=== PATIENT | male | born 1955 | race Caucasian/White ===

== ENCOUNTER → 2016-12-18 | Outpatient (CLI) | payer BC ==
--- NOTE | 2016-12-18 21:47 | CT ---
EXAMINATION TYPE: CT foot LT wo con DATE OF EXAM: 12/18/2016 COMPARISON: NONE HISTORY: Patient fell off of ladder. Patient complains of left foot pain post fall. CT DLP: 149.3 mGycm Automated exposure control for dose reduction was used. Helical acquisition through the foot, coronal and sagittal reconstructions FINDINGS: Comminuted fracture of the calcaneus is noted involving the posterior facet laterally as well as the sustentaculum jeffy at its articulation with the talus. Fracture fragments are displaced. There is ext ensive soft tissue edema. IMPRESSION: COMMINUTED DISPLACED CALCANEAL FRACTURE.
== END | disposition home or self-care (01) ==
LOC: RADCTMAIN 17:56
PROVIDERS: ATTEND Orthopaedic Surgery
DX: S92.002A Unspecified fracture of left calcaneus, initial encounter for closed fracture (principal)

== ENCOUNTER → 2018-11-13 | Outpatient (CLI) | payer BC ==
--- NOTE | 2018-11-14 12:24 | USB ---
Reason for exam: clinical finding. Physical Findings: Nurse Summary: 2cm firm nodule (nurse dw). US Breast RT Right complete breast ultrasound includes all four quadrants, the retroareolar region and axilla. Finding demonstrates a 1.6 x 0.9 x 0.9cm irregular, hypoechoic, vascular lesion at the posterior nipple. These results were verbally communicated with the patient and result sheet given to the patient on 11/13/18. ASSESSMENT: Incomplete: need additional imaging evaluation, BI-RAD 0 RECOMMENDATION: Follow-up diagnostic mammogram of both breasts.
--- NOTE | 2018-11-14 12:27 | MM ---
Reason for exam: additional evaluation requested from prior study. Baseline mammogram. [facility] Diagnostic Mammo w CAD [facility] Bilateral CC and MLO view(s) were taken. No suspicious group of calcifications. Asymmetric retroareolar tissue, greater in the right breast appears as gynecomastia, however, discordant from prior ultrasound. These results were verbally communicated with the patient and result sheet given to the patient on 11/13/18. ASSESSMENT: Suspicious, BI-RAD 4 RECOMMENDATION: Ultrasound core biopsy of the right breast. (considering vascular flow and mass like appearance on ultrasound) Called Dr. Contreras with mammographic findings and has scheduled an appointment for the patient for 12/22/18 at 3:[address] Latif. Biopsy scheduled for 12/22/18 at 12:20. PRELIMINARY REPORT CALLED AND FAXED TO DR. LATIF ON 11/14/18.
== END | disposition home or self-care (01) ==
LOC: RADUSWWP 15:16
PROVIDERS: ATTEND Family Medicine
DX: R92.8 Other abnormal and inconclusive findings on diagnostic imaging of breast (principal); N64.4 Mastodynia
CPT/HCPCS: 77066

== ENCOUNTER → 2018-12-19 | Outpatient (CLI) | payer BC ==
[2018-12-19 16:11] VITALS: BP 172/78; PULSE 66; RESP 20; TEMP 98.5; BMI 38.7
--- NOTE | 2018-12-19 16:11 | P.GSHP ---
History of Present Illness H&P Date: 12/19/18 Chief Complaint: mass in the right breast Previous a 63-year-old white male who for approximately the last 8 months noted an area of nodularity posterior to the nipple areolar complex in the right breast. He states this is intermittently painful. He underwent a mammogram on 11/13/2018 which revealed retroareolar tissue in the right suspicious for gynecomastia discordant from prior ultrasound. An ultrasound in the same day revealed a 1.6 x 0.9 cm irregular vascular lesion at this site. Ultrasound core biopsy was recommended. The patient patient does not note any masses in his testicles. He has not had any change in medication. The patient did have trauma to the right breast approximately 8 months ago. Family HIstory: 1. father: prostate Past surgical history: 1.esophogeal tear 2. mass right heel Medical history: 1.nasal polyps 2. HTN Social History: smoke: none alcohol: none drugs: none - Constitutional Constitutional: Denies chills, Denies fever - EENT Comment: wears glasses Eyes: denies blurred vision, denies pain Ears: bilateral: decreased hearing, deny: tinnitus Ears, nose, mouth and throat: Denies headache, Denies sore throat - Breasts Breasts: bilateral: as per HPI - Cardiovascular Cardiovascular: Reports high blood pressure - Respiratory Respiratory: Denies cough, Denies 7 - Gastrointestinal Gastrointestinal: Denies abdominal pain, Denies diarrhea, Denies nausea, Denies vomiting - Genitourinary (Female) Genitourinary: Denies dysuria, Denies hematuria - Genitourinary (Male) Genitourinary: Denies dysuria, Denies hematuria - Musculoskeletal Musculoskeletal: Denies myalgias - Integumentary Integumentary: Denies pruritus, Denies rash - Neurological Neurological: Denies numbness, Denies weakness - Psychiatric Psychiatric: Reports anxiety, Denies depression - Endocrine Comment: hypothyroid Endocrine: Denies fatigue, Denies weight change - Hematologic/Lymphatic Comment: none - Allergic/Immunologic Allergic/Immunologic: Reports seasonal allergies Medications and Allergies Home Medications Medication Instructions Recorded Confirmed Type Atenolol [Tenormin] 25 mg PO BID 12/08/18 12/08/18 History Budesonide [Pulmicort] 0.25 mg INHALATION BID 12/08/18 12/08/18 History Calcium/Magnesium/Zinc 1 each PO DAILY 12/08/18 12/08/18 History [Vnusgdc-Fzvtlqprx-Uzcr Tablet] Cholecalciferol (Vitamin D3) 2,000 unit PO DAILY 12/08/18 12/08/18 History [Vitamin D3] Fluticasone/Salmeterol [Advair 1 inhalation PO BID 12/08/18 12/08/18 History 250-50 Diskus] Gemfibrozil [Lopid] 600 mg PO AC-BID 12/08/18 12/08/18 History Levothyroxine Sodium 100 mcg PO DAILY 12/08/18 12/08/18 History Lovastatin [Altoprev] 80 mg PO DAILY 12/08/18 12/08/18 History Multivitamins, Thera [Multivitamin 1 tab PO DAILY 12/08/18 12/08/18 History (formulary)] Niacin [Niacin ER] 1,000 mg PO DAILY 12/08/18 12/08/18 History Coburn-3 Fatty Acids [Coburn-3] 1,000 mg PO DAILY 12/08/18 12/08/18 History Omeprazole [PriLOSEC] 20 mg PO DAILY 12/08/18 12/08/18 History Sertraline HCl [Zoloft] 150 mg PO DAILY 12/08/18 12/08/18 History Ubidecarenone [Co Q-10] 120 mg PO DAILY 12/08/18 12/08/18 History Allergies Allergy/AdvReac Type Severity Reaction Status Date / Time No Known Allergies Allergy Verified 12/08/18 12:45 Surgical - Exam BMI 38.7 - General well developed, well nourished, no distress - Eyes normal ocular movement - ENT no hearing loss, no congestion - Neck trachea midline - Respiratory normal respiratory effort, clear to auscultation - Cardiovascular Rhythm: regular Heart Sounds: normal: S1, S2 - Abdomen Abdomen: soft, non tender, no guarding, no rigid, no rebound - Integumentary normal turgor - Neurologic no disoriented, no combative - Musculoskeletal normal gait, normal posture - Psychiatric oriented to time, oriented to person, oriented to place, speech is normal, memory intact Breast examination: Right breast: Multiple positional exam reveals increased nodularity behind the nipple areolar complex extending approximately a centimeter superiorly Right axilla: No adenopathy of concern left breast: Multiple positional exam fibrocystic changes no dominant masses or nodules of concern Left axilla: No adenopathy of concern Results Mammogram and ultrasound results of the right breast reviewed Assessment and Plan Assessment: Impression: 1. Mass right breast 2. Abnormal mammogram 3. Abnormal ultrasound 4. Family history of cancer 5. Hypertension 6. Hypothyroidism 7. Reflux 8. History of trauma approximately 8 months ago to the right breast Plan: 1. Core biopsy area of concern in the right breast 2. Medical management of medical conditions 2. Follow-up one week after biopsy Cc:
== END ==
LOC: WWCWWP 15:14
PROVIDERS: ATTEND Surgery
DX: Z53.9 Procedure and treatment not carried out, unspecified reason (principal)

== ENCOUNTER → 2018-12-22 | Day surgery (SDC) | payer BC ==
[2018-12-22 11:44] VITALS: RESP 18; BMI 38.7
[2018-12-22 12:49] VITALS: BP 145/80; PULSE 63; TEMP 97.5
--- NOTE | 2018-12-22 13:07 | USB ---
ULTRASOUND GUIDED RIGHT BREAST CORE BIOPSY: CLINICAL HISTORY: Subareolar mass FINDINGS: The procedure was explained to the patient. The risks, complications, benefits and alternatives were discussed and any questions were answered. Informed consent was obtained. Patient was placed supine on the ultrasound table and prepped and draped in the usual sterile fashion. Utilizing a 14-gauge core biopsy needle, four passes were made into the right subareolar requested mass. Clip was placed post procedure and repeat mammogram appear to be in ideal placement. Patient was stable throughout the procedure. Pathology is pending. All elements of maximal barrier and sterile technique were utilized. IMPRESSION: 1. Successful ultrasound guided core biopsy right breast subareolar lesion. Pathology Results: Benign RIGHT BREAST, ULTRASOUND GUIDED CORE BIOPSY: Gynecomastia and fibrosis. Negative for malignancy. Recommendation Follow up ultrasound of the right breast in 6 months. SHIRLEYD
--- NOTE | 2018-12-22 13:50 | MM ---
Reason for exam: additional evaluation requested from abnormal screening. Last mammogram was performed 1 month ago. MG Diagnostic Mammo RT Wo CAD CC and LM view(s) were taken of the right breast. Prior study comparison: November 13, 2018, bilateral MG diagnostic mammo w CAD [facility]. ASSESSMENT: Post procedure mammogram for marker placement RECOMMENDATION: Ultrasound of the right breast in 6 months. PENDING PATHOLOGY RESULTS.
== END ==
LOC: RADUSWWP 11:19
PROVIDERS: ATTEND Surgery
DX: N62 Hypertrophy of breast (principal); N60.31 Fibrosclerosis of right breast
CPT/HCPCS: 88305; 77065; 19083; A4648; J2001

== ENCOUNTER → 2018-12-26 | Outpatient (CLI) | payer BC ==
[2018-12-26 09:01] VITALS: BP 145/76; PULSE 63; RESP 18; TEMP 97.7; BMI 38.7
--- NOTE | 2018-12-26 09:23 | P.PN ---
Subjective Progress Note Date: 12/26/18 Principal diagnosis: Status post core biopsy right breast The patient is a 63-year-old white male status post right breast [place] [id number]. Pathology revealed gynecomastia. He has no complaints related to the biopsy. I discussed with he and his the results. He does not wish any surgical intervention at this time. He is going to follow up in 6 months to assure that this has not changed in size or become more symptomatic. He will follow up sooner if he has any concerns. Objective - Vital Signs Vital signs: Vital Signs Temp 97.7 F 12/26/18 08:59 Pulse 63 12/26/18 08:59 Resp 18 12/26/18 08:59 BP 145/76 12/26/18 08:59 Pulse Ox 96 12/26/18 08:59 Intake & Output 12/25/18 12/26/18 12/26/18 18:59 06:59 18:59 Weight 122.47 kg - Exam BMI 38.7 - Constitutional General appearance: Present: obese - EENT Eyes: Present: EOMI ENT: Present: hearing grossly normal - Respiratory Respiratory: bilateral: CTA - Cardiovascular Rhythm: regular Heart sounds: normal: S1, S2 - Integumentary Integumentary Comment(s): Right breast mild ecchymosis at core biopsy site No evidence of infection No evidence of hematoma Integumentary: Present: normal turgor Assessment and Plan Assessment: Impression: 1. Patient status post core biopsy right breast 2. Pathology consistent with gynecomastia 3. History of hypertension Plan: 1. Medical management of medical conditions 2. Follow-up 6 months for continued surveillance area of gynecomastia right breast 3. Patient does not wish any surgical intervention at this time CC: Dr. Contreras
== END | disposition home or self-care (01) ==
LOC: WWCWWP 08:50
PROVIDERS: ATTEND Surgery
DX: Z53.9 Procedure and treatment not carried out, unspecified reason (principal)

== ENCOUNTER → 2019-06-26 | Outpatient (CLI) | payer MEDICARE, BC ==
[2019-06-26 16:16] VITALS: BP 144/85; PULSE 71; RESP 18; TEMP 97.7
--- NOTE | 2019-06-26 16:25 | P.PN ---
Subjective Progress Note Date: 06/26/19 Principal diagnosis: gynecomastia Previous a 63-year-old white male who for approximately the last 8 months noted an area of nodularity posterior to the nipple areolar complex in the right breast. He states this is intermittently painful. He underwent a mammogram on 11/13/2018 which revealed retroareolar tissue in the right suspicious for gynecomastia discordant from prior ultrasound. An ultrasound in the same day revealed a 1.6 x 0.9 cm irregular vascular lesion at this site. Ultrasound core biopsy was recommended. The patient patient had not noted any masses in his testicles. He had not had any change in medication. The patient did have trauma to the right breast approximately 8 months ago. He underwent a core biopsy of the right breast [place] [id number]. Pathology revealed gynecomastia. He has not noted any changes in his breast since that time. Patient has intermittent mild discomfort in the right breast. He has not noted any lumps in the testicles. No changes in his medications. Family HIstory: 1. father: prostate Past surgical history: 1.esophogeal tear 2. mass right heel Medical history: 1.nasal polyps 2. HTN Social History: smoke: none alcohol: none drugs: none - Constitutional Constitutional: Denies chills, Denies fever - EENT Comment: wears glasses Eyes: denies blurred vision, denies pain Ears: bilateral: decreased hearing, deny: tinnitus Ears, nose, mouth and throat: Denies headache, Denies sore throat - Breasts Breasts: bilateral: as per HPI - Cardiovascular Cardiovascular: Reports high blood pressure - Respiratory Respiratory: Denies cough, Denies 7 - Gastrointestinal Gastrointestinal: Denies abdominal pain, Denies diarrhea, Denies nausea, Denies vomiting - Genitourinary (Female) Genitourinary: Denies dysuria, Denies hematuria - Genitourinary (Male) Genitourinary: Denies dysuria, Denies hematuria - Musculoskeletal Musculoskeletal: Denies myalgias - Integumentary Integumentary: Denies pruritus, Denies rash - Neurological Neurological: Denies numbness, Denies weakness - Psychiatric Psychiatric: Reports anxiety, Denies depression - Endocrine Comment: hypothyroid Endocrine: Denies fatigue, Denies weight change - Hematologic/Lymphatic Comment: none - Allergic/Immunologic Allergic/Immunologic: Reports seasonal allergies Objective - Exam BMI 39.5 - Constitutional General appearance: Present: obese - EENT Eyes: Present: EOMI ENT: Present: hearing grossly normal - Neck Neck: Present: normal ROM - Respiratory Respiratory: bilateral: CTA - Cardiovascular Rhythm: regular Heart sounds: normal: S1, S2 - Gastrointestinal General gastrointestinal: Present: soft - Integumentary Integumentary: Present: normal turgor - Musculoskeletal Musculoskeletal: Present: gait normal - Psychiatric Psychiatric: Present: A&O x's 3, appropriate affect, intact judgment & insight - Additional findings Additional findings: Breast exam: Inspection: No skin changes of concern Palpation: Right breast: Area of gynecomastia approximately 2 x 2 centimeters in size directly behind the nipple areolar complex otherwise fibrocystic like changes Right axilla: No adenopathy of concern Left breast: Fibrocystic changes Left axilla: No adenopathy of concern Assessment and Plan Assessment: Impression: 1. Stable gynecomastia 2. Hypertension 3. Father history of prostate cancer Plan: 1. Repeat ultrasound of the right breast in 6 months 2. Follow-up exam in 6 months 3. Call sooner if any questions of concern Cc: Dr. Contreras Encounter 15 minutes, greater than 50% of time in planning and counseling Time with Patient: Less than 30
== END ==
LOC: WWCWWP 15:31
PROVIDERS: ATTEND Surgery
DX: Z53.9 Procedure and treatment not carried out, unspecified reason (principal)

== ENCOUNTER → 2019-12-28 | Outpatient (CLI) | payer MEDICARE, BC ==
--- NOTE | 2019-12-28 10:21 | USB ---
Reason for exam: additional evaluation requested from prior study. History: Benign US breast needle core RT of the right breast, December 22, 2018. Physical Findings: Nurse Summary: Patient complains of intermittent right breast pain with lump, biopsy last year (nurse monica). US Breast RT Technologist: Aline Bradford Right complete breast ultrasound includes all four quadrants, the retroareolar region and axilla. Finding demonstrates no cystic or solid lesion seen. These results were verbally communicated with the patient and result sheet given to the patient on 12/28/19. ASSESSMENT: Benign, BI-RAD 2 RECOMMENDATION: Clinical management of the right breast. Manage patient on a clinical basis.
== END ==
LOC: RADUSWWP 09:22
PROVIDERS: ATTEND Surgery
DX: R92.8 Other abnormal and inconclusive findings on diagnostic imaging of breast (principal)

== ENCOUNTER → 2020-09-26 | Outpatient (CLI) | payer MEDICARE, BC ==
--- NOTE | 2020-09-26 09:04 | CT ---
EXAMINATION TYPE: CT ankle RT wo con DATE OF EXAM: 09/26/2020 COMPARISON: Non-. HISTORY: Pain in Rt ankle and joints of Rt foot after fall injury, right calcaneal fracture. CT DLP: 185.6 mGycm Automated exposure control for dose reduction was used. CONTRAST: CT right ankle without contrast. FINDINGS: There is acute comminuted intra-articular fracture involving superior central 80-90% of the calcaneus with extension to the anterior calcaneal margin at the calcaneal cuboid articulation. There is poste rior extension nearly to the level of Achilles tendon sagittal image 26 along the medial aspect. Ther e is extension to the subtalar joint. There are few tiny ossific fragments noted. There is larger fra cture fragment involving the superior calcaneus at the subtalar joint. Only mild depression or height loss noted. Hindfoot articulations are preserved. Normal sinus tarsi fat. Calcification distal Achilles tendon pr ior to calcaneal insertion. Moderate size inferior calcaneal spur. There is focal moderate superior a nd lateral talonavicular focal low dense joint fluid sagittal image 25 and axial image 47. Distal tibia and fibula are intact. The talus is intact. Midfoot structures are maintained. Lisfranc joints are preserved. IMPRESSION: As above. Significant acute intra-articular comminuted slightly depressed fracture throug h the calcaneus as detailed above.
== END | disposition home or self-care (01) ==
LOC: RADCTMAIN 07:33
PROVIDERS: ATTEND Podiatrist
DX: S92.061A Displaced intraarticular fracture of right calcaneus, initial encounter for closed fracture (principal); M77.31 Calcaneal spur, right foot

== ENCOUNTER → 2021-08-03 | Outpatient (CLI) | payer MEDICARE ==
--- NOTE | 2021-08-04 17:54 | MR ---
EXAMINATION TYPE: MR brain wo/w con DATE OF EXAM: 08/03/2021 COMPARISON: Correlation CT neck 07/24/2021 HISTORY: 66-year-old male Esophageal cancer, evaluate metastatic disease. TECHNIQUE: Multiplanar, multisequence images of the brain and brainstem were acquired before and aft er administration of 12 mL IV Gadavist. Diffusion weighted imaging is performed. FINDINGS: No evidence for acute infarction, hydrocephalus, or herniation. There is an abnormal pituitary mass expanding the sella turcica measuring 2.4 cm AP by 1.9 cm cranioc audal by 2.8 cm wide. There is some mass effect and rightward displacement of the right internal niño tid artery within the cavernous portion. There is a elongated cystic component within this mass measuring 1.8 x 0.6 cm as well as some intrale sional fat apparent on the patient's CT and sagittal T1 sequence. Moderate homogeneous enhancement is demonstrated of the solid components. There are approximately 11 enhancing lesions of the bilateral cerebellar hemispheres. These range in size from very punctate 2 mm foci of enhancement to larger 1.5 cm foci. The largest lesion measuring 1.5 cm in the right cerebral hemisphere demonstrates the greatest degree of vasogenic edema causing seen mild mass effect onto the fourth ventricle but no shikha ventricular effacement. Lesser degree of vasogenic edema in the left cerebellar hemisphere and along the superior midline nicolas mis. Otherwise, no suprasellar lesions are seen. Neural venous sinuses are patent. The craniocervical junction is normal. There appears to have been previous sinonasal surgery but with persistent moderate to severe mucosal thickening right maxillary sinus and right ethmoid air cells. A polyp measuring 1.3 cm present in the superior aspect of the anterior right nasal cavity. Leftward nasal septal deviation. IMPRESSION: 1. 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 Associated vasogenic edema greatest in the right cerebellar hemisphere and cerebellar vermis. Slight mass effect on to the fourth ventricle but without shikha ventricular effacement, midline shift, or h erniation. 2. Pituitary mass expanding the sella and with mass effect onto the right cavernous sinus measuring 2 .8 x 2.4 x 1.9 cm. 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 3. No suprasellar metastases or restricted diffusion seen. 4. Moderate to severe right ethmoid and right maxillary sinus disease despite prior FESS. A 1.3 cm po lyp in the anterior aspect of the superior right nasal cavity.
== END | disposition home or self-care (01) ==
LOC: RADMRIMAIN 12:20
PROVIDERS: ATTEND Internal Medicine Hematology & Oncology
DX: C15.5 Malignant neoplasm of lower third of esophagus (principal)
CPT/HCPCS: 70553; A9585

== ENCOUNTER → 2021-08-28 | Outpatient (CLI) | payer MEDICARE ==
--- NOTE | 2021-08-29 13:01 | ECHOF ---
Referral Reason:[id number] MEASUREMENTS -------- HEIGHT: 177.8 cm WEIGHT: 115.2 kg BP: RVIDd: 3.9 cm (< 3.3) IVSd: 1.7 cm (0.6 - 1.1) LVIDd: 4.1 cm (3.9 - 5.3) LVPWd: 1.8 cm (0.6 - 1.1) IVSs: 2.2 cm LVIDs: 2.5 cm LVPWs: 1.9 cm LAESV Index (A-L): 17.67 ml/m Ao Diam: 4.1 cm (2.0 - 3.7) AV Cusp: 2.7 cm (1.5 - 2.6) LA Diam: 4.3 cm (2.7 - 3.8) MV EXCURSION: 25.622 mm (> 18.000) MV EF SLOPE: 33 mm/s (70 - 150) EPSS: 1.2 cm MV E Jovany: 0.62 m/s MV DecT: 242 ms MV A Jovany: 0.82 m/s MV E/A Ratio: 0.76 RAP: 5.00 mmHg RVSP: 20.45 mmHg FINDINGS -------- Sinus rhythm. This was a technically adequate study. The left ventricular size is normal. There is moderate concentric left ventricular hypertrophy. O verall left ventricular systolic function is normal with, an EF between 55 - 60 %. The right ventricle is moderately enlarged. Normal LA size by volume 22+/-6 ml/m2. The right atrial size is normal. Interatrial and interventricular septum intact. The aortic valve is trileaflet and appears structurally normal. There is no evidence of aortic regu rgitation. There is no evidence of aortic stenosis. No mitral regurgitation. Mild tricuspid regurgitation present. There is no evidence of pulmonary hypertension. The right v entricular systolic pressure, as measured by Doppler, is 20.45mmHg. There is no pulmonic regurgitation present. The aortic root size is normal. IVC Not well visulized. There is no pericardial effusion. CONCLUSIONS -------- 1. This was a technically adequate study. 2. The left ventricular size is normal. 3. There is moderate concentric left ventricular hypertrophy. 4. Overall left ventricular systolic function is normal with, an EF between 55 - 60 %. 5. The right ventricle is moderately enlarged. 6. Mild tricuspid regurgitation present. FASHION DESIGN PROFESSOR: Erika Salazar RDCS
== END | disposition home or self-care (01) ==
LOC: RADECHMAIN 15:01
PROVIDERS: ATTEND Internal Medicine Hematology & Oncology
DX: Z01.818 Encounter for other preprocedural examination (principal); I51.7 Cardiomegaly
CPT/HCPCS: 93306

== ENCOUNTER 2021-09-26 10:12 | Emergency (ER) | payer MEDICARE ==
[2021-09-26] MEDS ORDERED: DEXAMETHASONE SOD PHOSPHATE 4 MG/ML 1 ML VIAL IVP STA (10:41)
[2021-09-26] MEDS ORDERED: SODIUM CHLORIDE 0.9% 1,000 ML IV STA ×2 (10:43→12:38)
[2021-09-26 12:22] VITALS: TEMP 97.8
[2021-09-26 12:31] LABS: Anisocytosis Moderate; Basophils % (A) 0 %; Eosinophils # (A) 0.2 k/uL (0-0.7); Eosinophils % (A) 2 %; HCT 33.6 % (39.0-53.0); HGB 10.7 gm/dL (13.0-17.5); Hypochromasia Slight; Lymphocytes # (A) 0.3 k/uL (1.0-4.8); Lymphocytes % (A) 2 %; MCH 26.2 pg (25.0-35.0); MCHC 31.8 g/dL (31.0-37.0); MCV 82.4 fL (80.0-100.0); Mean Platelet Volume 6.9; Microcytosis Slight; Monocytes # (A) 0.2 k/uL (0-1.0); Monocytes % (A) 2 %; Neutrophils % (A) 94 %; Platelet Count 322 k/uL (150-450); RBC 4.07 m/uL (4.30-5.90); RDW 21.8 % (11.5-15.5); WBC 13.9 k/uL (3.8-10.6)
[2021-09-26 12:42] LABS: ALT 32 U/L (4-49); AST 64 U/L (17-59); African American GFR (CKD) >90 (>60 ml/min/1.73 sqM); Albumin 2.8 g/dL (3.5-5.0); Alkaline Phosphatase 155 U/L (38-126); Anion Gap 7 mmol/L; Blood Urea Nitrogen 18 mg/dL (9-20); Calcium 8.1 mg/dL (8.4-10.2); Carbon Dioxide 24 mmol/L (22-30); Chloride 102 mmol/L (98-107); Glucose 131 mg/dL (74-99); Magnesium 1.7 mg/dL (1.6-2.3); Non-African American GFR(CKD) >90 (>60 ml/min/1.73 sqM); Potassium 4.2 mmol/L (3.5-5.1); Sodium 133 mmol/L (137-145); Total Bilirubin 0.7 mg/dL (0.2-1.3); Total Protein 5.6 g/dL (6.3-8.2)
[2021-09-26 13:34] LABS: Appearance,Urine Clear (Clear); Bilirubin,Urine Negative (Negative); Blood,Urine Negative (Negative); Color,Urine Yellow; Glucose,Urine (UA) Negative (Negative); Ketones,Urine Negative (Negative); Leukocyte Esterase,Urine Negative (Negative); Nitrite,Urine Negative (Negative); PH, Urine 5.5 (5.0-8.0); Protein,Urine Trace (Negative); Specific Gravity,Urine 1.021 (1.001-1.035); Urobilinogen,Urine <2.0 mg/dL (<2.0)
--- NOTE | 2021-09-26 15:53 | ED ---
Nausea/Vomiting/Diarrhea HPI - General Chief complaint: Nausea/Vomiting/Diarrhea Stated complaint: Nausea/Vomiting Time Seen by Provider: 09/26/21 10:21 Source: patient, family, EMS, RN notes reviewed Mode of arrival: EMS Limitations: no limitations - History of Present Illness Initial comments: This is a 66-year-old male who presents to the emergency department for nausea and vomiting. He was diagnosed with stage IV esophageal cancer 2 months ago, an d is currently being treated by Dr. Huff. He has 46 hour treatments of chemotherapy, and is currently receiving his second round. His first round was 3 weeks ago. During the first round of chemo, he did have nausea and vomiting however it was short-lived and resolved within a couple of days. He has had nausea and vomiting for the last week as well as no appetite. Since beginning radiation, he has not had an appetite. His thinks that this may be due to destruction of the taste buds, as he states that everything tastes moldy. His also states that he is very weak, and she has had trouble helping him get around. He has been treated with Zofran, however his states that this turned him into a "vegetable" in terms of making him drowsy. He has also tried other antiemetics such as olanzapine. These antiemetics improve his nausea and vomiting, however they make him very drowsy, which bothers his . MD complaint: nausea, vomiting Onset/Timin -: week(s) - Related Data Home Medications Medication Instructions Recorded Confirmed Budesonide [Pulmicort] 0.25 mg INHALATION RT-BID PRN 12/08/18 09/26/21 Fluticasone/Salmeterol [Advair 1 puff INHALATION RT-BID 12/08/18 09/26/21 250-50 Diskus] Levothyroxine Sodium 100 mcg PO DAILY 12/08/18 09/26/21 Multivitamins, Thera [Multivitamin 1 tab PO DAILY 12/08/18 09/26/21 (formulary)] Niacin [Niacin ER] 1,000 mg PO DAILY 12/08/18 09/26/21 Omeprazole [PriLOSEC] 20 mg PO DAILY 12/08/18 09/26/21 Sertraline HCl [Zoloft] 150 mg PO DAILY 12/08/18 09/26/21 atenoloL [Tenormin] 25 mg PO BID 12/08/18 09/26/21 gemfibroziL [Lopid] 600 mg PO BID 12/08/18 09/26/21 Albuterol Sulfate [Ventolin HFA] 2 puff INHALATION RT-Q6H PRN 09/26/21 09/26/21 Ascorbic Acid [Vitamin C] 500 mg PO DAILY 09/26/21 09/26/21 Cholecalciferol (Vitamin D3) 125 mcg PO DAILY 09/26/21 09/26/21 [Vitamin D3 (125 MCG = 5,000 IU)] Dupilumab [Dupixent Syringe] 1 dose SQ DIRECTED 09/26/21 09/26/21 Lovastatin [Mevacor] 80 mg PO DAILY 09/26/21 09/26/21 Ondansetron [Zofran] 4 mg PO Q8H PRN 09/26/21 09/26/21 Prochlorperazine [Compazine] 10 mg PO TID PRN 09/26/21 09/26/21 Allergies Allergy/AdvReac Type Severity Reaction Status Date / Time amoxicillin [From Augmentin] Allergy Rash/Hives Verified 09/26/21 16:10 cefuroxime Allergy Rash/Hives Verified 09/26/21 16:10 clavulanic acid Allergy Rash/Hives Verified 09/26/21 16:10 [From Augmentin] sulfamethoxazole Allergy Diarrhea Verified 09/26/21 16:10 [From Bactrim] trimethoprim [From Bactrim] Allergy Diarrhea Verified 09/26/21 16:10 Review of Systems ROS Statement: Those systems with pertinent positive or pertinent negative responses have been documented in the HPI. ROS Other: All systems not noted in ROS Statement are negative. Constitutional: Denies: fever, chills ENT: Denies: ear pain, throat pain Respiratory: Denies: cough, dyspnea Cardiovascular: Denies: chest pain, palpitations Gastrointestinal: Reports: nausea, vomiting Genitourinary: Denies: urgency, dysuria Skin: Denies: rash Neurological: Denies: headache Past Medical History History of Any Multi-Drug Resistant Organisms: None Reported Past Psychological History: Anxiety Smoking Status: Never smoker General Exam Limitations: no limitations General appearance: alert, in no apparent distress Head exam: Present: atraumatic, normocephalic, normal inspection Respiratory exam: Present: normal lung sounds bilaterally. Absent: respiratory distress, wheezes, rales, rhonchi, stridor Cardiovascular Exam: Present: regular rate, normal rhythm, normal heart sounds. Absent: systolic murmur, diastolic murmur, rubs, gallop, clicks GI/Abdominal exam: Present: soft, hypoactive bowel sounds. Absent: distended, tenderness, guarding, rebound, organomegaly, mass Neurological exam: Present: alert, oriented X3, CN II-XII intact Psychiatric exam: Present: normal affect, normal mood Skin exam: Present: warm, dry, pallor Course Vital Signs 09/26/21 09/26/21 09/26/21 10:15 12:20 13:14 Temperature 99.6 F 97.8 F Pulse Rate 97 89 88 Respiratory 18 18 18 Rate Blood Pressure 129/66 139/75 141/69 O2 Sat by Pulse 96 95 Oximetry 09/26/21 16:38 Temperature Pulse Rate 82 Respiratory 20 Rate Blood Pressure 136/63 O2 Sat by Pulse 96 Oximetry Medical Decision Making - Medical Decision Making This is a 66-year-old male who presents to the emergency department for chemotherapy induced nausea and vomiting. Patient was given 8mg of dexamethasone, as it is not sedating and if anything should be somewhat stimulating. This did resolve the patient's nausea and vomiting. He does continue to feel fatigued and out of energy, however it is not any worse than it was initially, and he does not feel more drowsy. Fluids were replaced as well. Before discharge, he was able to ambulate in the hallway with the assistance of his nurse, and his states she is comfortable bringing him home. Instructed him to remain well-hydrated and discussed the importance of ensuring he has enough nutrition, even if it tastes bad, as this will help him regain his strength. His inquired as to if dexamethasone is something he can be on long-term for nausea and vomiting. I discussed that this is a known and effective treatment for chemotherapy induced nausea and vomiting, however I am not an expert on long-term use in this situation, and this should be a discussion he has with his oncologist who is an expert in this area. He will follow up as scheduled with his radiation oncologist tomorrow. Lab work results were printed out and provided to the patient and his per their request. Return precautions reviewed in depth, the patient is instructed to return to the emergency department with any new, worsening, or concerning symptoms. Patient verbalized understanding. This case was discussed in detail with the attending ED physician. Presentation, findings, and treatment plan discussed in detail as well. - Lab Data Result diagrams: 09/26/21 12:16 09/26/21 12:16 Lab Results 09/26/21 09/26/21 09/26/21 Range/Units 12:16 12:16 13:29 WBC 13.9 H (3.8-10.6) k/uL RBC 4.07 L (4.30-5.90) m/uL Hgb 10.7 L (13.0-17.5) gm/dL Hct 33.6 L (39.0-53.0) % MCV 82.4 (80.0-100.0) fL MCH 26.2 (25.0-35.0) pg MCHC 31.8 (31.0-37.0) g/dL RDW 21.8 H (11.5-15.5) % Plt Count 322 (150-450) k/uL MPV 6.9 Neutrophils % 94 % Lymphocytes % 2 % Monocytes % 2 % Eosinophils % 2 % Basophils % 0 % Neutrophils # 13.0 H (1.3-7.7) k/uL Lymphocytes # 0.3 L (1.0-4.8) k/uL Monocytes # 0.2 (0-1.0) k/uL Eosinophils # 0.2 (0-0.7) k/uL Basophils # 0.0 (0-0.2) k/uL Hypochromasia Slight Anisocytosis Moderate Microcytosis Slight Sodium 133 L (137-145) mmol/L Potassium 4.2 (3.5-5.1) mmol/L Chloride 102 (98-107) mmol/L Carbon Dioxide 24 (22-30) mmol/L Anion Gap 7 mmol/L BUN 18 (9-20) mg/dL Creatinine 0.78 (0.66-1.25) mg/dL Est GFR (CKD-EPI)AfAm >90 (>60 ml/min/1.73 sqM) Est GFR (CKD-EPI)NonAf >90 (>60 ml/min/1.73 sqM) Glucose 131 H (74-99) mg/dL Calcium 8.1 L (8.4-10.2) mg/dL Magnesium 1.7 (1.6-2.3) mg/dL Total Bilirubin 0.7 (0.2-1.3) mg/dL AST 64 H (17-59) U/L ALT 32 (4-49) U/L Alkaline Phosphatase 155 H (38-126) U/L Total Protein 5.6 L (6.3-8.2) g/dL Albumin 2.8 L (3.5-5.0) g/dL Urine Color Yellow Urine Appearance Clear (Clear) Urine pH 5.5 (5.0-8.0) Ur Specific [place] 1.021 (1.001-1.035) Urine Protein Trace H (Negative) Urine Glucose (UA) Negative (Negative) Urine Ketones Negative (Negative) Urine Blood Negative (Negative) Urine Nitrite Negative (Negative) Urine Bilirubin Negative (Negative) Urine Urobilinogen <2.0 (<2.0) mg/dL Ur Leukocyte Esterase Negative (Negative) Disposition Clinical Impression: Chemotherapy induced nausea and vomiting Disposition: HOME SELF-CARE Instructions (If sedation given, give patient instructions): Acute Nausea and Vomiting (ED), Chemo Induced Nausea and Vomiting (ED) Additional Instructions: Return to the emergency department with any new, worsening, or concerning symptoms. Discuss the use of Dexamethasone with your oncologist for management of chemotherapy induced nausea and vomiting. Is patient prescribed a controlled substance at d/c from ED?: No Referrals: Adalid Contreras DO [Primary Care Provider] - 1-2 days
[2021-09-26 16:44] VITALS: BP 136/63; PULSE 82; RESP 20
== END 2021-09-26 17:45 | disposition home or self-care (01) ==
LOC: EC 10:12
DX: R11.2 Nausea with vomiting, unspecified (principal); T45.1X5A Adverse effect of antineoplastic and immunosuppressive drugs, initial encounter; Z88.0 Allergy status to penicillin; Z88.1 Allergy status to other antibiotic agents; Z88.2 Allergy status to sulfonamides
CPT/HCPCS: 36415; 80053; 83735; 85025; 81003; 99284; 96374; 96361; J1100

== ENCOUNTER → 2021-09-30 | Outpatient (CLI) | payer MEDICARE ==
--- NOTE | 2021-10-01 15:15 | MR ---
EXAMINATION TYPE: MR brain wo/w con DATE OF EXAM: 09/30/2021 COMPARISON: Prior brain MRI 08/03/2021 HISTORY: Secondary cancer to brain, esophagus cancer TECHNIQUE: Multiplanar, multisequence images of the brain and brainstem is performed without and with IV contras t, utilizing 10.5 mL intravenous Gadavist . FINDINGS: Diffusion weighted images demonstrate no evidence of a recent infarct or other diffusion ab normality. There is no extra-axial fluid collection. Some improvement in white matter signal change s noted within the posterior fossa bilaterally. The ventricular system and cisternal spaces are amy l in size and appearance. The brain volume is age appropriate. Midline structures demonstrate normal morphology. The craniocervical junction appears within normal limits. Post contrast images demonstrate improvement in the size of the lesions bilaterally within t he cerebellar hemispheres now measuring approximately 6 mm on the right and 4 to 5 mm in the left, la rger lesion on the left measured 11 to 12 mm on prior, larger lesion on the right measured 15 mm on t he right and now measures approximately 10 mm, lesion at the midline posterior to the fourth ventricl e now measures approximately 7 mm and on prior measured 10 mm. Lesion in the centrum semiovale ovale axial image #113 on the left now measures approximately 4 mm and was only punctate on prior exam. The dural venous sinuses appear patent. The visualized sinuses are remarkable for inflammatory change in the ethmoid air cells and bilateral maxillary sinuses, and the globes are intact. Abnormality in the region of the pituitary, clivus again noted IMPRESSION: Metastatic disease appears improved in the posterior fossa, slight interval growth noted in the left cerebral hemisphere as described
== END | disposition home or self-care (01) ==
LOC: RADMRIMAIN 10:48
PROVIDERS: ATTEND Radiology Radiation Oncology
DX: C79.31 Secondary malignant neoplasm of brain (principal); C78.7 Secondary malignant neoplasm of liver and intrahepatic bile duct; C15.4 Malignant neoplasm of middle third of esophagus
CPT/HCPCS: 70553; A9585

== ENCOUNTER 2021-10-09 16:37 | Inpatient (IN) | payer MEDICARE ==
[2021-10-09] MEDS ORDERED: SODIUM CHLORIDE 0.9% 1,000 ML IV STA (17:12)
[2021-10-09] MEDS ORDERED: ONDANSETRON 4 MG/2 ML VIAL IVP STA (17:14)
[2021-10-09] MEDS ORDERED: FAMOTIDINE 20 MG/2 ML VIAL IV STA (17:14)
--- NOTE | 2021-10-09 17:22 | ED ---
General Adult HPI - General Chief complaint: Weakness Stated complaint: Weakness Time Seen by Provider: 10/09/21 16:44 Source: patient, family, EMS, RN notes reviewed Mode of arrival: EMS Limitations: altered mental status - History of Present Illness Initial comments: Patient is a pleasant 66-year-old male presenting to the emergency Department with concerns for dehydration and altered mental status. Patient has not been eating and drinking. Patient does have a PEG tube however not been used prior to just prior to arrival. Patient was advised to come the emergency department by Dr. Huff's office. Patient does have metastatic esophageal cancer. Patient does have associated brain lesions. Patient has undergone radiation to the brain as well as a couple doses of chemotherapy. Patient is vomiting in the emergency department which is new. Confusion has been waxing and waning. Patient becomes disoriented at times. That is a new finding for him the past several days. - Related Data Home Medications Medication Instructions Recorded Confirmed Budesonide [Pulmicort] 0.25 mg INHALATION RT-BID PRN 12/08/18 10/09/21 Fluticasone/Salmeterol [Advair 1 puff INHALATION RT-BID 12/08/18 10/09/21 250-50 Diskus] Levothyroxine Sodium 100 mcg PO DAILY 12/08/18 10/09/21 Multivitamins, Thera [Multivitamin 1 tab PO DAILY 12/08/18 10/09/21 (formulary)] Niacin [Niacin ER] 1,000 mg PO DAILY 12/08/18 10/09/21 Omeprazole [PriLOSEC] 20 mg PO DAILY 12/08/18 10/09/21 Sertraline HCl [Zoloft] 150 mg PO DAILY 12/08/18 10/09/21 atenoloL [Tenormin] 25 mg PO BID 12/08/18 10/09/21 gemfibroziL [Lopid] 600 mg PO BID 12/08/18 10/09/21 Albuterol Sulfate [Ventolin HFA] 2 puff INHALATION RT-Q6H PRN 09/26/21 10/09/21 Ascorbic Acid [Vitamin C] 500 mg PO DAILY 09/26/21 10/09/21 Cholecalciferol (Vitamin D3) 125 mcg PO DAILY 09/26/21 10/09/21 [Vitamin D3 (125 MCG = 5,000 IU)] Dupilumab [Dupixent Syringe] 1 dose SQ DIRECTED 09/26/21 10/09/21 Lovastatin [Mevacor] 80 mg PO DAILY 09/26/21 10/09/21 Ondansetron [Zofran] 4 mg PO Q8H PRN 09/26/21 10/09/21 Prochlorperazine [Compazine] 10 mg PO TID PRN 09/26/21 10/09/21 Allergies Allergy/AdvReac Type Severity Reaction Status Date / Time amoxicillin [From Augmentin] Allergy Rash/Hives Verified 10/09/21 18:28 cefuroxime Allergy Rash/Hives Verified 10/09/21 18:28 clavulanic acid Allergy Rash/Hives Verified 10/09/21 18:28 [From Augmentin] sulfamethoxazole Allergy Diarrhea Verified 10/09/21 18:28 [From Bactrim] trimethoprim [From Bactrim] Allergy Diarrhea Verified 10/09/21 18:28 Review of Systems ROS Statement: Those systems with pertinent positive or pertinent negative responses have been documented in the HPI. ROS Other: All systems not noted in ROS Statement are negative. Constitutional: Denies: fever Eyes: Denies: eye pain ENT: Denies: ear pain Respiratory: Reports: wheezes. Denies: cough Cardiovascular: Denies: chest pain Endocrine: Denies: fatigue Gastrointestinal: Reports: vomiting. Denies: abdominal pain Genitourinary: Denies: dysuria Musculoskeletal: Denies: back pain Skin: Denies: rash Neurological: Reports: confusion. Denies: weakness Past Medical History Additional Past Medical History / Comment(s): Esophageal Cancer History of Any Multi-Drug Resistant Organisms: None Reported Past Psychological History: Anxiety Smoking Status: Never smoker General Exam Limitations: no limitations General appearance: alert Head exam: Present: normocephalic Eye exam: Present: normal appearance ENT exam: Present: normal oropharynx Neck exam: Present: normal inspection Respiratory exam: Present: wheezes Cardiovascular Exam: Present: tachycardia GI/Abdominal exam: Present: soft, other (PEG tube site with surrounding erythema approximately 20 x 12 cm). Absent: tenderness Extremities exam: Present: normal inspection Neurological exam: Present: alert Psychiatric exam: Present: normal affect, normal mood Skin exam: Present: erythema Course Vital Signs 10/09/21 10/09/21 17:01 18:12 Pulse Rate 110 H 57 L Respiratory 14 14 Rate Blood Pressure 133/79 155/73 O2 Sat by Pulse 96 Oximetry - Reevaluation(s) Reevaluation #1: 10/09/21 19:22 There is concern for sepsis diagnosed at 1920. Blood culture and lactic acid and IV antibiotics will be ordered Medical Decision Making - Medical Decision Making Patient was reevaluated. Patient and family are updated on results and plan. Heart rate improved to 98. Case was discussed with Dr. Samuel, who will admit for Dr. Contreras. IV antibiotics will be started - Lab Data Result diagrams: 10/09/21 17:20 10/09/21 18:45 Lab Results 10/09/21 10/09/21 10/09/21 Range/Units 17:20 17:20 17:20 WBC 33.8 H (3.8-10.6) k/uL RBC 4.48 (4.30-5.90) m/uL Hgb 12.0 L (13.0-17.5) gm/dL Hct 37.5 L (39.0-53.0) % MCV 83.8 (80.0-100.0) fL MCH 26.9 (25.0-35.0) pg MCHC 32.1 (31.0-37.0) g/dL RDW 21.7 H (11.5-15.5) % Plt Count 248 (150-450) k/uL MPV 8.0 Neutrophils % (Manual) 88 % Band Neuts % (Manual) 8 % Lymphocytes % (Manual) 2 % Monocytes % (Manual) 2 % Neutrophils # (Manual) 32.40 H (1.3-7.7) k/uL Lymphocytes # (Manual) 0.68 L (1.0-4.8) k/uL Monocytes # (Manual) 0.68 (0-1.0) k/uL Nucleated RBCs 0 (0-0) /100 WBC Hypochromasia Slight Poikilocytosis Slight Poikilocytosis (manual Present Anisocytosis Moderate Microcytosis Slight Ovalocytes Present PT 11.2 (9.0-12.0) sec INR 1.0 (<1.2) APTT 28.7 (22.0-30.0) sec Sodium (137-145) mmol/L Potassium (3.5-5.1) mmol/L Chloride (98-107) mmol/L Carbon Dioxide (22-30) mmol/L Anion Gap mmol/L BUN (9-20) mg/dL Creatinine (0.66-1.25) mg/dL Est GFR (CKD-EPI)AfAm (>60 ml/min/1.73 sqM) Est GFR (CKD-EPI)NonAf (>60 ml/min/1.73 sqM) Glucose (74-99) mg/dL Plasma Lactic Acid Rudy 2.7 H* (0.7-2.0) mmol/L Calcium (8.4-10.2) mg/dL Magnesium (1.6-2.3) mg/dL Total Bilirubin (0.2-1.3) mg/dL AST (17-59) U/L ALT (4-49) U/L Alkaline Phosphatase (38-126) U/L Total Protein (6.3-8.2) g/dL Albumin (3.5-5.0) g/dL 10/09/21 Range/Units 18:45 WBC (3.8-10.6) k/uL RBC (4.30-5.90) m/uL Hgb (13.0-17.5) gm/dL Hct (39.0-53.0) % MCV (80.0-100.0) fL MCH (25.0-35.0) pg MCHC (31.0-37.0) g/dL RDW (11.5-15.5) % Plt Count (150-450) k/uL MPV Neutrophils % (Manual) % Band Neuts % (Manual) % Lymphocytes % (Manual) % Monocytes % (Manual) % Neutrophils # (Manual) (1.3-7.7) k/uL Lymphocytes # (Manual) (1.0-4.8) k/uL Monocytes # (Manual) (0-1.0) k/uL Nucleated RBCs (0-0) /100 WBC Hypochromasia Poikilocytosis Poikilocytosis (manual Anisocytosis Microcytosis Ovalocytes PT (9.0-12.0) sec INR (<1.2) APTT (22.0-30.0) sec Sodium 132 L (137-145) mmol/L Potassium 4.2 (3.5-5.1) mmol/L Chloride 97 L (98-107) mmol/L Carbon Dioxide 24 (22-30) mmol/L Anion Gap 11 mmol/L BUN 15 (9-20) mg/dL Creatinine 0.68 (0.66-1.25) mg/dL Est GFR (CKD-EPI)AfAm >90 (>60 ml/min/1.73 sqM) Est GFR (CKD-EPI)NonAf >90 (>60 ml/min/1.73 sqM) Glucose 113 H (74-99) mg/dL Plasma Lactic Acid Rudy (0.7-2.0) mmol/L Calcium 8.7 (8.4-10.2) mg/dL Magnesium 2.0 (1.6-2.3) mg/dL Total Bilirubin 0.6 (0.2-1.3) mg/dL AST 51 (17-59) U/L ALT 59 H (4-49) U/L Alkaline Phosphatase 253 H (38-126) U/L Total Protein 6.1 L (6.3-8.2) g/dL Albumin 3.3 L (3.5-5.0) g/dL - Radiology Data Radiology results: image reviewed (Chest x-ray shows no acute process. Abdominal x-ray shows PEG tube. Nonspecific nonobstructive pattern.) Critical Care Time Critical Care Time: Yes Total Critical Care Time: 33 Disposition Clinical Impression: Altered mental status, Cellulitis, Sepsis Disposition: ADMITTED IP TO THIS HOSP Is patient prescribed a controlled substance at d/c from ED?: No Referrals: Adalid Contreras DO [Primary Care Provider] - 1-2 days Time of Disposition: 19:21
[2021-10-09 17:50] LABS: Anisocytosis Moderate; HCT 37.5 % (39.0-53.0); Hypochromasia Slight; MCH 26.9 pg (25.0-35.0); MCHC 32.1 g/dL (31.0-37.0); MCV 83.8 fL (80.0-100.0); Microcytosis Slight; Platelet Count 248 k/uL (150-450); Poikilocytosis Slight; RBC 4.48 m/uL (4.30-5.90); RDW 21.7 % (11.5-15.5); WBC 33.8 k/uL (3.8-10.6)
[2021-10-09 18:10] LABS: Band Neutrophils % 8 %; Lymphocytes # (M) 0.68 k/uL (1.0-4.8); Monocytes # (M) 0.68 k/uL (0-1.0); Neutrophils % (M) 88 %; Nucleated Red Blood Cells 0 /100 WBC (0-0); Total Cells Counted 100
[2021-10-09 18:11] LABS: Ovalocytes Present; Poikilocytosis (M) Present
[2021-10-09 18:18] LABS: Partial Thromboplastin Time 28.7 sec (22.0-30.0); Prothrombin Time 11.2 sec (9.0-12.0)
--- NOTE | 2021-10-09 19:08 | XR ---
EXAMINATION TYPE: XR chest 2V DATE OF EXAM: 10/09/2021 6:52 PM COMPARISON: CT neck chest from 07/24/2021 TECHNIQUE: XR chest 2V Frontal and lateral views of the chest. CLINICAL INDICATION:Male, 66 years old with history of Weakness; FINDINGS: Lungs/Pleura: Low lung volumes are present. There is no evidence of pleural effusion, focal consolida tion, or pneumothorax. Pulmonary vascularity: Unremarkable. Heart/mediastinum: Cardiomediastinal silhouette is unremarkable. Musculoskeletal: No acute osseous pathology. Right chest [id number] with distal tip at the right cavoatrial junction. IMPRESSION: Low lung volumes without acute cardiopulmonary disease/process.
[2021-10-09 19:10] LABS: ALT 59 U/L (4-49); AST 51 U/L (17-59); African American GFR (CKD) >90 (>60 ml/min/1.73 sqM); Albumin 3.3 g/dL (3.5-5.0); Alkaline Phosphatase 253 U/L (38-126); Anion Gap 11 mmol/L; Blood Urea Nitrogen 15 mg/dL (9-20); Calcium 8.7 mg/dL (8.4-10.2); Carbon Dioxide 24 mmol/L (22-30); Chloride 97 mmol/L (98-107); Glucose 113 mg/dL (74-99); Non-African American GFR(CKD) >90 (>60 ml/min/1.73 sqM); Potassium 4.2 mmol/L (3.5-5.1); Sodium 132 mmol/L (137-145); Total Bilirubin 0.6 mg/dL (0.2-1.3); Total Protein 6.1 g/dL (6.3-8.2)
--- NOTE | 2021-10-09 19:11 | XR ---
EXAMINATION TYPE: XR abdomen 1V DATE OF EXAM: 10/09/2021 6:52 PM INDICATION: Patient age:Male; 66 years old; Reason for study: vomiting; COMPARISON: None. TECHNIQUE: One radiographic view of the abdomen was obtained. FINDINGS: There is PEG tube with distal tip projecting over the spine. The bowel gas pattern is nonsp ecific without dilated loops of small or large bowel. The osseous structures are intact. No abnormal calcifications are present. Fecal material and gas are demonstrated throughout the colon and rectum. Multilevel disc degeneration changes throughout the spine. IMPRESSION: 1. PEG tube projecting over the spine 2. Nonspecific nonobstructive bowel gas pattern.
[2021-10-09] MEDS ORDERED: CLINDAMYCIN 600 MG in DEXTROSE 5% IN WATER 50 ML IVPB ONE ×2 (19:23)
[2021-10-09] MEDS ORDERED: ONDANSETRON 4 MG/2 ML VIAL IVP PRN (19:24)
[2021-10-09] MEDS ORDERED: NALOXONE 0.4 MG/ML 1 ML VIAL IV PRN (19:24)
[2021-10-09] MEDS: SODIUM CHLORIDE 0.9% 1,000 ML IV SCH (19:39)
--- NOTE | 2021-10-09 19:40 | CT ---
EXAMINATION TYPE: CT brain wo con CT DLP: 1145.4 mGycm, Automated exposure control for dose reduction was used. DATE OF EXAM: 10/09/2021 7:23 PM COMPARISON: None. CLINICAL INDICATION:Male, 66 years old with history of weakness, TECHNIQUE: Brain: Multiple axial CT images of the brain were obtained without IV contrast. FINDINGS: Brain: Extra-axial spaces: No abnormal extra-axial fluid collections. There is soft tissue fullness to the p ituitary fossa with fat density seen within the anterior aspect. Ventricular system: Within normal limits Cerebral parenchyma: No acute intraparenchymal hemorrhage or mass effect. The sofia-white junction is well differentiated. Cerebellum: Unremarkable. Mass effect: No evidence of midline shift. Intracranial vasculature: unremarkable Soft tissues: Normal. Calvarium/osseous structures: No depressed skull fracture. Paranasal sinuses and mastoid air cells: Postsurgical changes to the paranasal sinuses with persisten t scattered mucosal thickening. Visualized orbits: Orbital contents are intact. IMPRESSION: 1. Fullness of the pituitary fossa which can be further evaluated with MRI territory mass protocol. 2. No evidence for acute/subacute CVA. 3. Postsurgical changes with persistent paranasal sinus disease.
[2021-10-09 20:34] LABS: Appearance,Urine Clear (Clear); Bilirubin,Urine Negative (Negative); Blood,Urine Negative (Negative); Color,Urine Yellow; Glucose,Urine (UA) Negative (Negative); Ketones,Urine Negative (Negative); Leukocyte Esterase,Urine Negative (Negative); Mucus,Urine Few /hpf; Nitrite,Urine Negative (Negative); PH, Urine 5.5 (5.0-8.0); Protein,Urine 1+ (Negative); RBC,Urine 1 /hpf (0-5); Specific Gravity,Urine 1.023 (1.001-1.035); Squamous Epithelial Cell,Urine <1 /hpf (0-4); WBC,Urine 3 /hpf (0-5)
[2021-10-09] MEDS ORDERED: BUDESONIDE 0.25 MG/2 ML NEBU INHALATION PRN (21:13)
[2021-10-09] MEDS: ALBUTEROL NEBULIZED 2.5 MG/3 ML INHALATION PRN (21:42)
[2021-10-09] MEDS ORDERED: SERTRALINE 50 MG TAB PO STA (22:55)
[2021-10-10] MEDS: MORPHINE SULFATE 4 MG/ML SYRINGE IV PRN ×2 (01:45→20:57)
[2021-10-10] MEDS: CLINDAMYCIN 600 MG in DEXTROSE 5% IN WATER 50 ML IVPB SCH ×8 (01:53→20:56)
[2021-10-10] MEDS ORDERED: ACETAMINOPHEN TAB 325 MG TAB PO STA (04:21)
[2021-10-10] MEDS: ALBUTEROL NEBULIZED 2.5 MG/3 ML INHALATION PRN ×3 (07:53→19:39)
[2021-10-10] MEDS ORDERED: PANTOPRAZOLE 40 MG/10 ML VIAL IV SCH (09:00)
[2021-10-10 09:15] LABS: HCT 33.8 % (39.6-50.0); HGB 10.3 g/dL (13.0-17.0); MCH 25.9 pg (27.0-32.0); MCHC 30.5 g/dL (32.0-37.0); MCV 85.1 fL (80.0-97.0); Mean Platelet Volume 10.5 fL (9.5-12.2); NRBC Per 100 WBC 0.1 /100 WBCS (0.0-0.0); Platelet Count 204 X 10*3/uL (140-440); RBC 3.97 X 10*6/uL (4.40-5.60); RDW 23.5 % (11.5-14.5); WBC 39.75 X 10*3/uL (4.50-10.00)
[2021-10-10 09:37] LABS: African American GFR (CKD) 113.2 (60.0-200.0); Albumin 3.3 g/dL (3.8-4.9); Albumin/Globulin Ratio 1.32 (1.60-3.17); Anion Gap 12.7 mmol/L (10.00-18.00); Carbon Dioxide 23.3 mmol/L (20.0-27.5); Globulin 2.5 g/dL (1.6-3.3); Non-African American GFR(CKD) 97.7 (60.0-200.0); Potassium 4.2 mmol/L (3.5-5.5); Total Bilirubin 0.4 mg/dL (0.30-1.20); Total Protein 5.8 g/dL (6.2-8.2)
[2021-10-10] MEDS: SODIUM CHLORIDE 0.9% 1,000 ML IV SCH (10:00)
[2021-10-10] MEDS ORDERED: NIACIN TR 500 MG CAPLET PO SCH (10:15)
[2021-10-10] MEDS ORDERED: NON FORMULARY DRUG (Omeprazole 20 MG Capsule.Dr) PO SCH (10:15)
[2021-10-10 11:16] LABS: Basophils # (A) 0.17 X 10*3/uL (0.00-0.10); Basophils % (A) 0.4 %; Eosinophils # (A) 0.08 X 10*3/uL (0.04-0.35); Eosinophils % (A) 0.2 %; Lymphocytes # (A) 1.44 X 10*3/uL (0.90-5.00); Lymphocytes % (A) 3.6 %; Monocytes # (A) 2.68 X 10*3/uL (0.20-1.00); Monocytes % (A) 6.7 %; Neutrophils # (A) 33.38 X 10*3/uL (1.80-7.70); Neutrophils % (A) 84.1 %; RBC Morphology NORMAL
[2021-10-10] MEDS: atenoloL 25 MG TAB PO SCH ×2 (11:42→20:56)
[2021-10-10] MEDS: LEVOTHYROXINE 100 MCG TAB PO SCH (11:42)
[2021-10-10] MEDS: MULTIVITAMINS, THERA 1 EACH TAB PO SCH (11:42)
[2021-10-10] MEDS: SERTRALINE 100 MG TAB PO SCH (11:42)
[2021-10-10] MEDS: SYMBICORT 80-4.5 MCG INHALER INHALATION SCH ×2 (11:43→19:39)
[2021-10-10] MEDS: DEXTROSE 5%-0.45% NACL 1,000 ML IV SCH ×2 (13:22→22:14)
--- NOTE | 2021-10-10 16:15 | P.HPIM ---
History of Present Illness H&P Date: 10/10/21 Chief Complaint: Altered mental status This is a 66-year-old patient who follows with Dr. Contreras. Chronic stable medical conditions include asthma, GERD, hypertension, hyperlipidemia, hypothyroid. History is obtained by the at the bedside. Patient was diagnosed with metastatic esophageal cancer in July 2021. Being followed by Dr. Huff oncologist. Found to have brain metastasis. She has received 10 brain radiation treatments and advanced to chemotherapy is done. Last one being 2 weeks ago. About 5 days ago patient had a PEG tube placed by Dr. lara. The next day patient noticed to have a redness around the PEG tube site and started looking worse. It was read Nursery. Patient does able to take some liquids by mouth. Patient normally has a bowel movement every day but S had no bowel movement for last 3 days. Have a fever yesterday. Patient been using a walker for last 2 weeks. Has been becoming confused. Patient had a MRI about 10 years ago. Showed some improvement. Patient was brought in because of increasing confusion waxing and waning mental status. Decreased oral intake. No pain reported. Patient's Louise is the DP OA. Review of systems: Could not be obtained as patient is rather lethargic. Supportive history as above Past medical history to include: Asthma, GERD, hyperlipidemia, essential hypertension, hypothyroid, esophageal cancer with brain metastases has had 10 and radiation treatment in 2 doses of chemotherapy, dysphagia, PEG tube, esophageal varices, vitamin D deficiency, benign pituitary tumor with surgery, COVID in April 2021. Social history: . Does have a walker Wheelchair. Heavy drinker until 1997. No smoking. Family history: Father had bladder cancer. Physical examination: VITAL SIGNS: 110, 14, 133/79, 96% room air GENERAL: BMI 31.7, reclining in bed, lethargic. EYES: Pupils equal. Conjunctiva normal. HEENT: External appearance of nose and ears normal, oral cavity dry. NECK: JVD not raised; masses not palpable. HEART: First and second heart sounds are normal; no edema. LUNGS: Respiratory rate normal; decreased breath sounds. ABDOMEN: Soft, some tenderness and firmness around the PEG tube site., Localized redness, liver spleen not palpable, no masses palpable. PSYCH: Unable to assess, lethargicl. MUSCULOSKELETAL:No Clubbing/cyanosis;muscles-grossly intact NEUROLOGICAL: Cranial nerves grossly intact; no facial asymmetry, power and sensation grossly intact. LYMPHATICS: No lymph nodes palpable in the axilla and neck INVESTIGATIONS, reviewed in the clinical context: White count 39.7 hemoglobin 10.3 platelets 204 sodium 133 potassium 4.2 creatinine 0.7 AST 41 ALT 56 alkaline phosphatase 224 albumin 3.3 UA positive for protein 1+ Computed tomography scan of the brain: Fullness of the pituitary.. X-ray abdomen 1 view: PEG tube. Nonspecific nonobstructive bowel gas pattern. Chest x-ray film personally reviewed by me-no obvious infiltrate Assessment and plan: -Patient presents with altered mental status. Fever at home. Induration of the PEG tube site with cellulitis and drainage. Most likely severe cellulitis/localized abscess. Patient started IV clindamycin. Will consult Dr. lara -Sepsis from above IV fluids. IV clindamycin -Metastatic esophageal cancer being followed by Dr. Huff diagnosed in July 2021. Patient has received 10 radiation treatment of the brain and has had 2 cycles of chemotherapy loss and being about 10 days ago. -Mild protein calorie malnutrition from decreased oral intake -Malfunctioning PEG tube. Since started using the PEG tube he's been throwing up the gastric contents. Consult Dr. lara -Moderate persistent asthma DuoNeb 3 times a day -Hypothyroid Synthroid 100 g a day -GERD Prilosec 20 mg daily -Depression Zoloft 150 mg a day -Essential hypertension Tenormin 25 mg twice a day -Hyperlipidemia Currently hold off patient's Lopid and Mevacor given elevated liver enzymes. -Mild hepatitis likely from chemotherapy. Follow LFTs -Acute metabolic encephalopathy with delirium from underlying sepsis IV fluids, -Louise, /DP OA IV clindamycin. IV fluids. Consultation to oncology, radiation oncology,'s surgery. Care was discussed length with the . Questions answered. Given the complexity and severity of patient's condition expect the patient to be in the hospital at least for 2 overnights Advanced care planning: Discussed with the at the bedside. Given patient's metastatic disease she had decided to proceed with DO NOT RESUSCITATE. In the meantime current active treatment to continue including chemotherapy. PEG tube feeding to continue. Other questions answered. Prognosis guarded. Time spent for this 25 minutes Past Medical History Additional Past Medical History / Comment(s): Esophageal Cancer History of Any Multi-Drug Resistant Organisms: None Reported Past Psychological History: Anxiety Smoking Status: Never smoker - Past Family History Father Family Medical History: Cancer Additional Family Medical History / Comment(s): Father had bladder cancer which he of at the age of 72 yrs. Mother Family Medical History: No Reported History Additional Family Medical History / Comment(s): Mother is healthy Medications and Allergies Home Medications Medication Instructions Recorded Confirmed Type Budesonide [Pulmicort] 0.25 mg INHALATION RT-BID PRN 12/08/18 10/09/21 History Fluticasone/Salmeterol [Advair 1 puff INHALATION RT-BID 12/08/18 10/09/21 History 250-50 Diskus] Levothyroxine Sodium 100 mcg PO DAILY 12/08/18 10/09/21 History Multivitamins, Thera [Multivitamin 1 tab PO DAILY 12/08/18 10/09/21 History (formulary)] Niacin [Niacin ER] 1,000 mg PO DAILY 12/08/18 10/09/21 History Omeprazole [PriLOSEC] 20 mg PO DAILY 12/08/18 10/09/21 History Sertraline HCl [Zoloft] 150 mg PO DAILY 12/08/18 10/09/21 History atenoloL [Tenormin] 25 mg PO BID 12/08/18 10/09/21 History gemfibroziL [Lopid] 600 mg PO BID 12/08/18 10/09/21 History Albuterol Sulfate [Ventolin HFA] 2 puff INHALATION RT-Q6H PRN 09/26/21 10/09/21 History Ascorbic Acid [Vitamin C] 500 mg PO DAILY 09/26/21 10/09/21 History Cholecalciferol (Vitamin D3) 125 mcg PO DAILY 09/26/21 10/09/21 History [Vitamin D3 (125 MCG = 5,000 IU)] Dupilumab [Dupixent Syringe] 1 dose SQ DIRECTED 09/26/21 10/09/21 History Lovastatin [Mevacor] 80 mg PO DAILY 09/26/21 10/09/21 History Ondansetron [Zofran] 4 mg PO Q8H PRN 09/26/21 10/09/21 History Prochlorperazine [Compazine] 10 mg PO TID PRN 09/26/21 10/09/21 History Allergies Allergy/AdvReac Type Severity Reaction Status Date / Time amoxicillin [From Augmentin] Allergy Rash/Hives Verified 10/09/21 18:28 cefuroxime Allergy Rash/Hives Verified 10/09/21 18:28 clavulanic acid Allergy Rash/Hives Verified 10/09/21 18:28 [From Augmentin] sulfamethoxazole Allergy Diarrhea Verified 10/09/21 18:28 [From Bactrim] trimethoprim [From Bactrim] Allergy Diarrhea Verified 10/09/21 18:28 Physical Exam Vitals: Vital Signs Temp Pulse Resp BP Pulse Ox 10/10/21 08:04 88 16 10/10/21 07:53 85 16 94 L 10/10/21 07:00 90 24 140/71 98 10/10/21 06:00 89 24 10/10/21 04:19 99.5 F 102 H 24 141/78 98 10/10/21 00:00 97.9 F 106 H 16 147/83 92 L 10/09/21 22:59 105 H 18 143/87 10/09/21 21:48 104 H 10/09/21 21:44 105 H 10/09/21 19:44 98 18 142/95 92 L 10/09/21 18:12 57 L 14 155/73 96 10/09/21 17:01 110 H 14 133/79 Intake and Output 10/09/21 10/10/21 10/10/21 22:59 06:59 14:59 Other: Weight 102.965 kg Results CBC & Chem 7: 10/10/21 04:26 10/10/21 04:26 Labs: Abnormal Lab Results - Last 24 Hours (Table) 10/09/21 10/09/21 10/09/21 Range/Units 17:20 17:20 18:45 WBC 33.8 H (3.8-10.6) k/uL RBC (4.40-5.60) X 10*6/uL Hgb 12.0 L (13.0-17.5) gm/dL Hct 37.5 L (39.0-53.0) % MCH (27.0-32.0) pg MCHC (32.0-37.0) g/dL RDW 21.7 H (11.5-15.5) % Absolute Nucleated RBC (0.00-0.00) X 10*3/uL Neutrophils # (Manual) 32.40 H (1.3-7.7) k/uL Lymphocytes # (Manual) 0.68 L (1.0-4.8) k/uL NRBC/100 WBC Diff (0.0-0.0) /100 WBCS Sodium 132 L (137-145) mmol/L Chloride 97 L (98-107) mmol/L Glucose 113 H (74-99) mg/dL Plasma Lactic Acid Rudy 2.7 H* (0.7-2.0) mmol/L AST (14-35) U/L ALT 59 H (4-49) U/L Alkaline Phosphatase 253 H (38-126) U/L Total Protein 6.1 L (6.3-8.2) g/dL Albumin 3.3 L (3.5-5.0) g/dL Albumin/Globulin Ratio (1.60-3.17) g/dL Urine Protein (Negative) Urine Mucus (None) /hpf 10/09/21 10/10/21 10/10/21 Range/Units 20:28 04:26 04:26 WBC 39.75 H (3.8-10.6) k/uL RBC 3.97 L (4.40-5.60) X 10*6/uL Hgb 10.3 L (13.0-17.5) gm/dL Hct 33.8 L (39.0-53.0) % MCH 25.9 L (27.0-32.0) pg MCHC 30.5 L (32.0-37.0) g/dL RDW 23.5 H (11.5-15.5) % Absolute Nucleated RBC 0.03 H (0.00-0.00) X 10*3/uL Neutrophils # (Manual) (1.3-7.7) k/uL Lymphocytes # (Manual) (1.0-4.8) k/uL NRBC/100 WBC Diff 0.1 H (0.0-0.0) /100 WBCS Sodium 133 L (137-145) mmol/L Chloride (98-107) mmol/L Glucose 123 H (74-99) mg/dL Plasma Lactic Acid Rudy (0.7-2.0) mmol/L AST 41 H (14-35) U/L ALT 56 H (4-49) U/L Alkaline Phosphatase 224 H (38-126) U/L Total Protein 5.8 L (6.3-8.2) g/dL Albumin 3.3 L (3.5-5.0) g/dL Albumin/Globulin Ratio 1.32 L (1.60-3.17) g/dL Urine Protein 1+ H (Negative) Urine Mucus Few H (None) /hpf
[2021-10-10] MEDS: NIACIN TR 500 MG CAPLET PO SCH (20:56)
[2021-10-10] MEDS: PANTOPRAZOLE 40 MG/10 ML VIAL IVP SCH (23:55)
[2021-10-11] MEDS: CLINDAMYCIN 600 MG in DEXTROSE 5% IN WATER 50 ML IVPB SCH ×4 (01:30→08:41)
[2021-10-11] MEDS: DEXTROSE 5%-0.45% NACL 1,000 ML IV SCH ×3 (04:21→23:55)
[2021-10-11] MEDS: LEVOTHYROXINE 100 MCG TAB PO SCH (05:49)
[2021-10-11] MEDS ORDERED: PANTOPRAZOLE 40 MG TABLET PO SCH (07:30)
[2021-10-11] MEDS: SYMBICORT 80-4.5 MCG INHALER INHALATION SCH ×2 (08:10→20:29)
[2021-10-11] MEDS: ALBUTEROL NEBULIZED 2.5 MG/3 ML INHALATION PRN ×2 (08:10→23:20)
[2021-10-11] MEDS: SERTRALINE 100 MG TAB PO SCH (08:39)
[2021-10-11] MEDS: PANTOPRAZOLE 40 MG/10 ML VIAL IVP SCH ×2 (08:40→21:27)
[2021-10-11] MEDS: atenoloL 25 MG TAB PO SCH ×2 (08:40→21:28)
[2021-10-11] MEDS: MULTIVITAMINS, THERA 1 EACH TAB PO SCH (08:40)
[2021-10-11] MEDS: MORPHINE SULFATE 4 MG/ML SYRINGE IV PRN ×2 (10:39→23:51)
[2021-10-11] MEDS: ONDANSETRON 4 MG/2 ML VIAL IVP PRN (10:44)
[2021-10-11] MEDS ORDERED: ACETAMINOPHEN TAB 500 MG TAB PO PRN (11:03)
[2021-10-11 13:14] LABS: Anisocytosis Moderate; Basophils # (A) 0.1 k/uL (0-0.2); Basophils % (A) 0 %; Eosinophils # (A) 0.1 k/uL (0-0.7); Eosinophils % (A) 0 %; HCT 29.8 % (39.0-53.0); Hypochromasia Moderate; Lymphocytes # (A) 0.9 k/uL (1.0-4.8); Lymphocytes % (A) 3 %; MCHC 31.6 g/dL (31.0-37.0); MCV 85.5 fL (80.0-100.0); Mean Platelet Volume 7.3; Monocytes # (A) 0.8 k/uL (0-1.0); Monocytes % (A) 3 %; Neutrophils # (A) 31.8 k/uL (1.3-7.7); Neutrophils % (A) 94 %; Platelet Count 216 k/uL (150-450); RBC 3.49 m/uL (4.30-5.90); RDW 21.8 % (11.5-15.5)
[2021-10-11 13:15] LABS: HGB 9.4 gm/dL (13.0-17.5)
[2021-10-11 13:24] LABS: ALT 35 U/L (4-49); AST 43 U/L (17-59); African American GFR (CKD) >90 (>60 ml/min/1.73 sqM); Albumin 2.6 g/dL (3.5-5.0); Alkaline Phosphatase 205 U/L (38-126); Anion Gap 6 mmol/L; Blood Urea Nitrogen 12 mg/dL (9-20); Calcium 8.1 mg/dL (8.4-10.2); Carbon Dioxide 23 mmol/L (22-30); Chloride 99 mmol/L (98-107); Globulin 2.5 g/dL; Glucose 113 mg/dL (74-99); Non-African American GFR(CKD) >90 (>60 ml/min/1.73 sqM); Potassium 3.5 mmol/L (3.5-5.1); Sodium 128 mmol/L (137-145); Total Bilirubin 0.6 mg/dL (0.2-1.3); Total Protein 5.1 g/dL (6.3-8.2)
[2021-10-11] MEDS: IOPAMIDOL CONTRAST (ORAL USE) VIAL PO PRN ×2 (13:54→14:50)
[2021-10-11] MEDS ORDERED: VANCOMYCIN IV PER PHARMACY 1 EACH MISC MISCELLANE PRN (14:52)
--- NOTE | 2021-10-11 14:53 | P.CONS ---
History of Present Illness - Reason for Consult Consult date: 10/10/21 oncology care Requesting physician: Ananda Coley - Chief Complaint weakness - History of Present Illness Mr. Jovel is a very pleasant male pt of Dr. Huff who initially presented with progressive hoarseness of his voice started around April 2021. He subsequently developed dysphagia, intermittent to solid food, he reported wt loss of about 20 pounds in 4 months. He was evaluated by Dr. Prescott, referred for CT neck and chest which revealed thickening at distal esophagus, mediastinal nodes, suspicious liver lesions upt to 3.3 cm, splenic and adrenal lesions, ther e was also cerebellar lesions noted. 08/03/21 brain MRI revealed multiple cerebellar lesions. 08/07/21 EGD revealed ulcerated mass at distal esophagous, biopsy was positive for invasive adenocarcinoma. 08/08/21 staging PET revealed metastatic disease to thoracic nodes, liver, peritoneum, bilateral adrenal glands. Dr. Huff met with pt and 08/15 and reviewed palliative intent treatment. 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 After 1st cycle he had progressive dysphagia and PEG was ordered, he also required hydration and more aggressive antiemetic therapy, GCSF was added due to neutopenia. Pt had 2nd cycle 09/25-09/27. PEG was placed . reports since Saturday pt has progressively declined. Nausea has been intractable, vomiting-especially after tube feeding, she didn't feel she really knew what to with the feedings. Pt was having trouble managing secretions, he has been becoming combative and very restless starting at about midnight and lasting until about 4am. She noted leaking/drainage from the PEG insertion. No BM since Saturday. Pt is very weak, not really responding to questions. CT brain without contrast was neg, CXR neg for acute process, abd xray neg. reports red, warm abd. Review of Systems Pt reports HPI, pt is not very communicative Past Medical History Past Medical History: Cancer, Hyperlipidemia, Hypertension Additional Past Medical History / Comment(s): Esophageal Cancer History of Any Multi-Drug Resistant Organisms: None Reported Past Psychological History: Anxiety Smoking Status: Never smoker - Past Family History Father Family Medical History: Cancer Additional Family Medical History / Comment(s): Father had bladder cancer which he of at the age of 72 yrs. Mother Family Medical History: No Reported History Additional Family Medical History / Comment(s): Mother is healthy Medications and Allergies Home Medications Medication Instructions Recorded Confirmed Type Budesonide [Pulmicort] 0.25 mg INHALATION RT-BID PRN 12/08/18 10/09/21 History Fluticasone/Salmeterol [Advair 1 puff INHALATION RT-BID 12/08/18 10/09/21 History 250-50 Diskus] Levothyroxine Sodium 100 mcg PO DAILY 12/08/18 10/09/21 History Multivitamins, Thera [Multivitamin 1 tab PO DAILY 12/08/18 10/09/21 History (formulary)] Niacin [Niacin ER] 1,000 mg PO DAILY 12/08/18 10/09/21 History Omeprazole [PriLOSEC] 20 mg PO DAILY 12/08/18 10/09/21 History Sertraline HCl [Zoloft] 150 mg PO DAILY 12/08/18 10/09/21 History atenoloL [Tenormin] 25 mg PO BID 12/08/18 10/09/21 History gemfibroziL [Lopid] 600 mg PO BID 12/08/18 10/09/21 History Albuterol Sulfate [Ventolin HFA] 2 puff INHALATION RT-Q6H PRN 09/26/21 10/09/21 History Ascorbic Acid [Vitamin C] 500 mg PO DAILY 09/26/21 10/09/21 History Cholecalciferol (Vitamin D3) 125 mcg PO DAILY 09/26/21 10/09/21 History [Vitamin D3 (125 MCG = 5,000 IU)] Dupilumab [Dupixent Syringe] 1 dose SQ DIRECTED 09/26/21 10/09/21 History Lovastatin [Mevacor] 80 mg PO DAILY 09/26/21 10/09/21 History Ondansetron [Zofran] 4 mg PO Q8H PRN 09/26/21 10/09/21 History Prochlorperazine [Compazine] 10 mg PO TID PRN 09/26/21 10/09/21 History Allergies Allergy/AdvReac Type Severity Reaction Status Date / Time amoxicillin [From Augmentin] Allergy Rash/Hives Verified 10/09/21 18:28 cefuroxime Allergy Rash/Hives Verified 10/09/21 18:28 clavulanic acid Allergy Rash/Hives Verified 10/09/21 18:28 [From Augmentin] sulfamethoxazole Allergy Diarrhea Verified 10/09/21 18:28 [From Bactrim] trimethoprim [From Bactrim] Allergy Diarrhea Verified 10/09/21 18:28 Physical Exam Vitals: Vital Signs Temp Pulse Resp BP Pulse Ox 10/10/21 08:04 88 16 10/10/21 07:53 85 16 94 L 10/10/21 07:00 90 24 140/71 98 10/10/21 06:00 89 24 10/10/21 04:19 99.5 F 102 H 24 141/78 98 10/10/21 00:00 97.9 F 106 H 16 147/83 92 L 10/09/21 22:59 105 H 18 143/87 10/09/21 21:48 104 H 10/09/21 21:44 105 H 10/09/21 19:44 98 18 142/95 92 L 10/09/21 18:12 57 L 14 155/73 96 10/09/21 17:01 110 H 14 133/79 Intake and Output 10/09/21 10/10/21 10/10/21 22:59 06:59 14:59 Other: Weight 102.965 kg - Constitutional General appearance: cooperative, no acute distress, obese - EENT Eyes: anicteric sclerae, EOMI ENT: hearing grossly normal, normal oropharynx - Neck Neck: no lymphadenopathy - Respiratory Respiratory: bilateral: CTA - Cardiovascular Rhythm: regular Heart sounds: normal: S1, S2 Abnormal Heart Sounds: no systolic murmur, no diastolic murmur, no rub, no S3 Gallop, no S4 Gallop, no click, no other - Gastrointestinal Epigastric PEG tube, generalized abd redness, warm General gastrointestinal: distended, soft, tenderness - Neurologic Neurologic: focal deficits - Musculoskeletal Musculoskeletal: generalized weakness Results CBC & Chem 7: 10/11/21 12:47 10/11/21 12:47 Labs: Abnormal Lab Results - Last 24 Hours (Table) 10/09/21 10/09/21 10/09/21 Range/Units 17:20 17:20 18:45 WBC 33.8 H (3.8-10.6) k/uL Hgb 12.0 L (13.0-17.5) gm/dL Hct 37.5 L (39.0-53.0) % RDW 21.7 H (11.5-15.5) % Neutrophils # (Manual) 32.40 H (1.3-7.7) k/uL Lymphocytes # (Manual) 0.68 L (1.0-4.8) k/uL Sodium 132 L (137-145) mmol/L Chloride 97 L (98-107) mmol/L Glucose 113 H (74-99) mg/dL Plasma Lactic Acid Rudy 2.7 H* (0.7-2.0) mmol/L ALT 59 H (4-49) U/L Alkaline Phosphatase 253 H (38-126) U/L Total Protein 6.1 L (6.3-8.2) g/dL Albumin 3.3 L (3.5-5.0) g/dL Urine Protein (Negative) Urine Mucus (None) /hpf 10/09/21 Range/Units 20:28 WBC (3.8-10.6) k/uL Hgb (13.0-17.5) gm/dL Hct (39.0-53.0) % RDW (11.5-15.5) % Neutrophils # (Manual) (1.3-7.7) k/uL Lymphocytes # (Manual) (1.0-4.8) k/uL Sodium (137-145) mmol/L Chloride (98-107) mmol/L Glucose (74-99) mg/dL Plasma Lactic Acid Rudy (0.7-2.0) mmol/L ALT (4-49) U/L Alkaline Phosphatase (38-126) U/L Total Protein (6.3-8.2) g/dL Albumin (3.5-5.0) g/dL Urine Protein 1+ H (Negative) Urine Mucus Few H (None) /hpf Chest x-ray: report reviewed Abdominal x-ray: report reviewed CT Scan - head: report reviewed Assessment and Plan (1) Chemotherapy induced nausea and vomiting Current Visit: Yes Status: Acute Priority: High Code(s): R11.2 - NAUSEA WITH VOMITING, UNSPECIFIED; T45.1X5A - ADVERSE EFFECT OF ANTINEOPLASTIC AND IMMUNOSUP DRUGS, INIT SNOMED Code(s): 46881565 (2) Esophageal adenocarcinoma Current Visit: Yes Status: Acute Priority: High Code(s): C15.9 - MALIGNANT NEOPLASM OF ESOPHAGUS, UNSPECIFIED SNOMED Code(s): 780492655 (3) Altered mental status Current Visit: Yes Status: Acute Priority: High Code(s): R41.82 - ALTERED MENTAL STATUS, UNSPECIFIED SNOMED Code(s): 262493747 (4) Cellulitis Current Visit: Yes Status: Acute Priority: High Code(s): L03.90 - CELLULITIS, UNSPECIFIED SNOMED Code(s): 241317636 Plan: Adjust antiemetics and PPI. We will adjust medications based on patient's symptoms while inpatient. Consult Surgeon for PEG tube leakage Dietitian consulted for suspected intolerance to tube feed formula. Patient's needs more education and options for providing patient with tube feedings i.e. bolus versus a slow drip. Patient has had 2 cycles of FOLFOX 6, one dose of Herceptin and one dose of keytruda. He received Neulasta on 09/27. Patient has not tolerated the first 2 cycles very well. Patient reports discussion about a dose reduction, will confirm that there has been a dose reduction. Patient received parenteral iron 09/13 attests: I have performed H&P, seen and examined patient, developed impression and plan of care. Discussed with dictator. Agree with documentation, dictated as a scribe.
--- NOTE | 2021-10-11 15:13 | P.PN ---
Subjective Progress Note Date: 10/11/21 Principal diagnosis: abd distension, possible infection, on palliative treatment for metastatic esophageal adenocarcinoma In f/u today pt lethargic and drifts off to sleep during questioning, he is having fever, around the PEG is still leaking. Pt has had fever, and daughter at bedside. They report agitation of pt better after adm of morphine Objective - Vital Signs Vital signs: Vital Signs Temp 100.9 F H 10/11/21 12:06 Pulse 87 10/11/21 12:06 Resp 18 10/11/21 12:06 BP 133/71 10/11/21 12:06 Pulse Ox 95 10/11/21 12:06 Intake & Output 10/10/21 10/11/21 10/11/21 18:59 06:59 18:59 Intake Total 1450 Balance 1450 Weight 102.965 kg Intake: Intake, IV Titration 1250 Amount Clindamycin 600 mg In 50 Dextrose 5% in Water 50 ml @ 50 mls/hr IVPB Q6H [facility] Rx#:[id number] Dextrose 5%-0.45% NaCl 1, 1200 000 ml @ 125 mls/hr IV . Q8H [facility] Rx#:[id number] Oral 200 Other: Voiding Method Urinal Urinal # Voids 3 1 - Constitutional General appearance: Present: cooperative, no acute distress - EENT Eyes: Present: anicteric sclerae, EOMI ENT: Present: hearing grossly normal - Respiratory Respiratory: bilateral: CTA - Cardiovascular Rhythm: regular Heart sounds: normal: S1, S2 Abnormal Heart Sounds: Absent: systolic murmur, diastolic murmur, rub, S3 Gallop, S4 Gallop, click, other - Peripheral edema leg Peripheral Edema: bilateral: None - Gastrointestinal Gastrointestinal Comment(s): Lateral abd is more distended, redness is progressive, generalized tenderness to palpation, abd is not rigid, no rebound, warm to touch, absent BS at 1 min - Musculoskeletal Musculoskeletal: Present: generalized weakness - Psychiatric Psychiatric Comment(s): Lethargic, drifts off to sleep during questions and exam - Labs CBC & Chem 7: 10/11/21 12:47 10/11/21 12:47 Labs: Abnormal Lab Results - Last 24 Hours (Table) 10/11/21 10/11/21 Range/Units 12:47 12:47 WBC 34.0 H (3.8-10.6) k/uL RBC 3.49 L (4.30-5.90) m/uL Hgb 9.4 L D (13.0-17.5) gm/dL Hct 29.8 L (39.0-53.0) % RDW 21.8 H (11.5-15.5) % Neutrophils # 31.8 H (1.3-7.7) k/uL Lymphocytes # 0.9 L (1.0-4.8) k/uL Sodium 128 L (137-145) mmol/L Creatinine 0.57 L (0.66-1.25) mg/dL Glucose 113 H (74-99) mg/dL Calcium 8.1 L (8.4-10.2) mg/dL Alkaline Phosphatase 205 H (38-126) U/L Total Protein 5.1 L (6.3-8.2) g/dL Albumin 2.6 L (3.5-5.0) g/dL Microbiology - Last 24 Hours (Table) 10/09/21 17:57 Blood Culture - Preliminary Blood No Growth after 24 hours 10/09/21 17:41 Blood Culture - Preliminary Blood No Growth after 24 hours Assessment and Plan (1) Chemotherapy induced nausea and vomiting Current Visit: Yes Status: Acute Priority: High Code(s): R11.2 - NAUSEA WITH VOMITING, UNSPECIFIED; T45.1X5A - ADVERSE EFFECT OF ANTINEOPLASTIC AND IMMUNOSUP DRUGS, INIT SNOMED Code(s): 41850647 (2) Esophageal adenocarcinoma Current Visit: Yes Status: Acute Priority: High Code(s): C15.9 - MALIGNANT NEOPLASM OF ESOPHAGUS, UNSPECIFIED SNOMED Code(s): 119983689 (3) Altered mental status Current Visit: Yes Status: Acute Priority: High Code(s): R41.82 - ALTERED MENTAL STATUS, UNSPECIFIED SNOMED Code(s): 758964196 (4) Cellulitis Current Visit: Yes Status: Acute Priority: High Code(s): L03.90 - CELLULITIS, UNSPECIFIED SNOMED Code(s): 490496612 Plan: Adjusted antiemetics and PPI. No c/o of vomiting. Surgeon consulted, CT abd ordered to assess persistent abs symptoms, PEG tube leakage ID consulted for persistent fever on abx Requested blood culture from [facility] Dietitian consulted for suspected intolerance to tube feed formula. Patient's needs more education and options for providing patient with tube feedings i.e. bolus versus a slow drip. Patient has had 2 cycles of FOLFOX 6, one dose of Herceptin and one dose of keytruda. He received Neulasta on 09/27. Patient has not tolerated the first 2 cycles very well. Did confirm dose reduction was ordered. Patient received parenteral iron 09/13 Pt daughter is a RN. She was asking about palliative care and hospice. It is a very reasonable decision in his case. It is however, worth the work up to see if pt is suffering from an infection that could be treated and help him to feel better. If treatable infectious cause pt could become more coherent which would improve his quality of life and end of life time he will spend with his family. Will continue work up for now and treat. Will plan to move forward with pt/family request for palliative/hospice care when pt is closer to discharge and after all family has had a chance to review this discussion.
[2021-10-11] MEDS: VANCOMYCIN 1,750 MG in SODIUM CHLORIDE 0.9% 500 ML 500 ML IVPB SCH ×2 (16:54→23:41)
[2021-10-11] MEDS: AZTREONAM 2 GM in SODIUM CHLORIDE 0.9% 100 ML IVPB SCH ×2 (16:54→23:41)
--- NOTE | 2021-10-11 17:08 | CT ---
EXAMINATION TYPE: CT ChestAbdPelvis wo/w con DATE OF EXAM: 10/11/2021 COMPARISON: None HISTORY: infected peg tube CT DLP: 3401 mGycm CONTRAST: CT scan of the chest, abdomen and pelvis is performed with Oral Contrast and without and with IV Cont rast, patient injected with 3401 mL of Isovue 300. CT Chest: LUNGS: Basilar linear densities may reflect underlying atelectasis or developing infiltrates. The rem ainder of the lungs are clear. No pulmonary nodule or mass is detected. No pleural effusion or CT ev idence of interstitial lung disease. MEDIASTINUM: Thoracic aorta is of normal caliber. The heart is not enlarged. No evidence for media stinal mass or adenopathy. HILAR STRUCTURES: No evidence for mass. No hilar adenopathy is appreciated. OTHER: Centimeter left thyroid nodule. CONTRAST CT ABDOMEN AND PELVIS FINDINGS: LIVER/GB: No calcified gallstones. Multiple hypoattenuating lesions within the liver suspicious for metastatic disease. The largest seen within the posterior segment right hepatic lobe measures nearly 3 cm. Biliary tree is of normal caliber. PANCREAS: No inflammation. No distinct mass. SPLEEN: No splenic enlargement. Lower pole splenic lesion measuring 2.7 cm.. ADRENALS: No nodule. No thickening. KIDNEYS/BLADDER: No hydronephrosis. No nephrolithiasis. Symphysis cyst midpole left kidney. BOWEL: Gastrostomy tube is noted in place. There is a subcutaneous attenuation at the entrance site o f the gastrostomy tube is several small foci of air filled reflect the infection. Drainable collectio n is not seen with certainty. Normal appendix. Normal bowel caliber. No inflammation. Moderate hiat al hernia. GENITAL ORGANS: No gross abnormality. LYMPH NODES: No greater than 1cm abdominal or pelvic lymph nodes are appreciated. AORTA: No significant abnormality. OSSEOUS STRUCTURES: No significant abnormality is seen. OTHER: No significant additional abnormality is seen. IMPRESSION: 1. Gastrostomy tube is noted in place. There is a subcutaneous attenuation at the entrance site of th e gastrostomy tube is several small foci of air filled reflect the infection. Drainable collection is not seen with certainty. 2. suspect metastatic disease to the liver. 3. Splenic lesion noted. Additional metastatic lesion not excluded. 4. Basilar atelectasis and/or developing infiltrate.
--- NOTE | 2021-10-11 17:14 | P.PN ---
Progress Note - Text Progress Note Date: 10/11/21 Chief Complaint: Altered mental status This is a 66-year-old patient who follows with Dr. Contreras. Chronic stable medical conditions include asthma, GERD, hypertension, hyperlipidemia, hypothyroid. History is obtained by the at the bedside. Patient was diagnosed with metastatic esophageal cancer in July 2021. Being followed by Dr. Huff oncologist. Found to have brain metastasis. She has received 10 brain radiation treatments and advanced to chemotherapy is done. Last one being 2 weeks ago. About 5 days ago patient had a PEG tube placed by Dr. lara. The next day patient noticed to have a redness around the PEG tube site and started looking worse. It was read [place]. Patient does able to take some liquids by mouth. Patient normally has a bowel movement every day but S had no bowel movement for last 3 days. Have a fever yesterday. Patient been using a walker for last 2 weeks. Has been becoming confused. Patient had a MRI about 10 years ago. Showed some improvement. Patient was brought in because of increasing confusion waxing and waning mental status. Decreased oral intake. No pain reported. Patient's Louise is the DP OA. Admitted with sepsis, source felt to be PEG tube site possible abscess cellulitis. Acute delirium. October 11: Clindamycin discontinued. Started on IV aztreonam and vancomycin per ID. Patient draining more from the PEG tube site. Computed tomography scan of the abdomen ordered. Discussed with the and daughter the bedside. Patient able to answer simple questions today. Tired. Spiking fevers Active Medications Acetaminophen (Acetaminophen Tab 500 Mg Tab) 500 mg PO Q6HR PRN PRN Reason: Fever and/ or Pain Last Admin: 10/11/21 11:15 Dose: 500 mg Documented by: Albuterol Sulfate (Albuterol Nebulized 2.5 Mg/3 Ml) 2.5 mg INHALATION RT-Q6H PRN PRN Reason: Shortness Of Breath Last Admin: 10/11/21 08:10 Dose: 2.5 mg Documented by: Atenolol (Atenolol 25 Mg Tab) 25 mg PO BID [facility] Last Admin: 10/11/21 08:40 Dose: 25 mg Documented by: Budesonide (Budesonide 0.25 Mg/2 Ml Nebu) 0.25 mg INHALATION RT-BID PRN PRN Reason: Shortness Of Breath Budesonide/Formoterol Fumarate (Symbicort 80-4.5 Mcg Inhaler) 2 puff INHALATION RT-BID [facility] Last Admin: 10/11/21 08:10 Dose: 2 puff Documented by: Dextrose/Sodium Chloride (Dextrose 5%-1/2ns Iv Soln) 1,000 mls @ 125 mls/hr IV .Q8H [facility] Last Admin: 10/11/21 13:39 Dose: 125 mls/hr Documented by: Aztreonam 2 gm/ Sodium (Chloride) 100 mls @ 33.3 mls/hr IVPB Q8HR [facility]; Protocol Last Admin: 10/11/21 16:54 Dose: 33.3 mls/hr Documented by: Vancomycin HCl 1,750 mg/ (Sodium Chloride) 500 mls @ 167 mls/hr IVPB Q8H [facility] Last Admin: 10/11/21 16:54 Dose: 167 mls/hr Documented by: Levothyroxine Sodium (Levothyroxine 100 Mcg Tab) 100 mcg PO DAILY@0630 [facility] Last Admin: 10/11/21 05:49 Dose: 100 mcg Documented by: Morphine Sulfate (Morphine Sulfate 4 Mg/Ml Syringe) 4 mg IV Q4HR PRN PRN Reason: Severe Pain Last Admin: 10/11/21 10:39 Dose: 4 mg Documented by: Multivitamins (Multivitamins, Thera 1 Each Tab) 1 each PO DAILY [facility] Last Admin: 10/11/21 08:40 Dose: 1 each Documented by: Naloxone HCl (Naloxone 0.4 Mg/Ml 1 Ml Vial) 0.2 mg IV Q2M PRN PRN Reason: Opioid Reversal Niacin (Niacin Tr 500 Mg Caplet) 1,000 mg PO [facility] Last Admin: 10/10/21 20:56 Dose: 1,000 mg Documented by: Ondansetron HCl (Ondansetron 4 Mg/2 Ml Vial) 4 mg IVP Q4HR PRN PRN Reason: Nausea And Vomiting Last Admin: 10/11/21 10:44 Dose: 4 mg Documented by: Pantoprazole Sodium (Pantoprazole 40 Mg/10 Ml Vial) 40 mg IVP BID [facility] Last Admin: 10/11/21 08:40 Dose: 40 mg Documented by: Sertraline HCl (Sertraline 100 Mg Tab) 150 mg PO DAILY [facility] Last Admin: 10/11/21 08:39 Dose: 150 mg Documented by: Past medical history to include: Asthma, GERD, hyperlipidemia, essential hypertension, hypothyroid, esophageal cancer with brain metastases has had 10 and radiation treatment in 2 doses of chemotherapy, dysphagia, PEG tube, esophageal varices, vitamin D deficiency, benign pituitary tumor with surgery, COVID in April 2021. Social history: . Does have a walker Wheelchair. Heavy drinker until 1997. No smoking. Family history: Father had bladder cancer. Physical examination: VITAL SIGNS: 101.4, 87, 18, 133/71, 95% room air GENERAL: Declining in bed, awake, tired EYES: Pupils equal. Conjunctiva normal. HEENT: External appearance of nose and ears normal, oral cavity dry. NECK: JVD not raised; masses not palpable. HEART: First and second heart sounds are normal; no edema. LUNGS: Respiratory rate normal; decreased breath sounds. ABDOMEN: Soft, tenderness and firmness around the PEG tube site. Some drainage., Localized redness, liver spleen not palpable, no masses palpable. PSYCH: Answering simple questions today. MUSCULOSKELETAL:No Clubbing/cyanosis;muscles-grossly intact INVESTIGATIONS, reviewed in the clinical context: October 11: White count 34 hemoglobin 9.4 potassium 3.5 creatinine 0.57 White count 39.7 hemoglobin 10.3 platelets 204 sodium 133 potassium 4.2 creatinine 0.7 AST 41 ALT 56 alkaline phosphatase 224 albumin 3.3 UA positive for protein 1+ Computed tomography scan of the brain: Fullness of the pituitary.. X-ray abdomen 1 view: PEG tube. Nonspecific nonobstructive bowel gas pattern. Chest x-ray film personally reviewed by me-no obvious infiltrate Assessment and plan: -Localized abscess cellulitis at the PEG tube site.: Slow to respond IV aztreonam, IV vancomycin. Pending input from Dr. lara/ surgeon. -Sepsis from above: Slow to respond IV fluids. IV aztreonam vancomycin -Metastatic esophageal cancer being followed by Dr. Huff diagnosed in July 2021. Patient has received 10 radiation treatment of the brain and has had 2 cycles of chemotherapy loss and being about 10 days ago. -Mild protein calorie malnutrition from decreased oral intake -Malfunctioning PEG tube. Since started using the PEG tube he's been throwing up the gastric contents. Follow with Dr. lara -Moderate persistent asthma DuoNeb 3 times a day -Hypothyroid Synthroid 100 g a day -GERD Prilosec 20 mg daily -Depression Zoloft 150 mg a day -Essential hypertension Tenormin 25 mg twice a day -Hyperlipidemia Currently hold off patient's Lopid and Mevacor given elevated liver enzymes. -Mild hepatitis likely from chemotherapy. Follow LFTs -Acute metabolic encephalopathy with delirium from underlying sepsis: Some improvement IV fluids, -Louise, /DP OA Antibiotic changed to IV aztreonam and IV vancomycin. Spiking fevers. 2 feeding has been held until further evaluation by Dr. lara. Discussed with patient's and daughter the bedside. Computed tomography scan abdomen done. Spoke to Dr. lara was be evaluating the patient later today.
--- NOTE | 2021-10-11 17:44 | P.GSCN ---
History of Present Illness Consult date: 10/11/21 History of present illness: This is a 66-year-old male presented a hospital with chief complaint of altered mental status abdominal pain and cellulitis around his recent PEG tube site. I recently placed the PEG tube last week and the patient has metastatic esophageal cancer and is undergoing treatments. This is for palliative reasons. Apparently over the weekend the patient began having surrounding erythema and cellulitis around the PEG tube site and altered mental status Presented to the emergency department at that time. Since his admission he began having purulent drainage around the PEG site. Computed tomography scan did reveal some surrounding cellulitis however there was no drainable fluid collection seen on CT. And this was all within the soft tissues. The PEG didn't appear to be in place and oral contrast appeared to properly entered the stomach with no sign of extravasation Past Medical History Past Medical History: Cancer, Hyperlipidemia, Hypertension Additional Past Medical History / Comment(s): Esophageal Cancer History of Any Multi-Drug Resistant Organisms: None Reported Past Surgical History: Breast Surgery, Orthopedic Surgery Additional Past Surgical History / Comment(s): 10/06/21 PEG inserted, EGDs/bandings, esophageal tear repair, colonoscopy, pituitary tumor removal, nasal polyps removed, R posterior ankle tumor removal, R breast biopsy Past Anesthesia/Blood Transfusion Reactions: No Reported Reaction Additional Past Anesthesia/Blood Transfusion Reaction / Comm: Pt has received blood in past without reaction. Past Psychological History: Anxiety Smoking Status: Never smoker - Past Family History Father Family Medical History: Cancer Additional Family Medical History / Comment(s): Father had bladder cancer which he of at the age of 72 yrs. Mother Family Medical History: No Reported History Additional Family Medical History / Comment(s): Mother is healthy Medications and Allergies Home Medications Medication Instructions Recorded Confirmed Type Budesonide [Pulmicort] 0.25 mg INHALATION RT-BID PRN 12/08/18 10/09/21 History Fluticasone/Salmeterol [Advair 1 puff INHALATION RT-BID 12/08/18 10/09/21 History 250-50 Diskus] Levothyroxine Sodium 100 mcg PO DAILY 12/08/18 10/09/21 History Multivitamins, Thera [Multivitamin 1 tab PO DAILY 12/08/18 10/09/21 History (formulary)] Niacin [Niacin ER] 1,000 mg PO DAILY 12/08/18 10/09/21 History Omeprazole [PriLOSEC] 20 mg PO DAILY 12/08/18 10/09/21 History Sertraline HCl [Zoloft] 150 mg PO DAILY 12/08/18 10/09/21 History atenoloL [Tenormin] 25 mg PO BID 12/08/18 10/09/21 History gemfibroziL [Lopid] 600 mg PO BID 12/08/18 10/09/21 History Albuterol Sulfate [Ventolin HFA] 2 puff INHALATION RT-Q6H PRN 09/26/21 10/09/21 History Ascorbic Acid [Vitamin C] 500 mg PO DAILY 09/26/21 10/09/21 History Cholecalciferol (Vitamin D3) 125 mcg PO DAILY 09/26/21 10/09/21 History [Vitamin D3 (125 MCG = 5,000 IU)] Dupilumab [Dupixent Syringe] 1 dose SQ DIRECTED 09/26/21 10/09/21 History Lovastatin [Mevacor] 80 mg PO DAILY 09/26/21 10/09/21 History Ondansetron [Zofran] 4 mg PO Q8H PRN 09/26/21 10/09/21 History Prochlorperazine [Compazine] 10 mg PO TID PRN 09/26/21 10/09/21 History Allergies Allergy/AdvReac Type Severity Reaction Status Date / Time amoxicillin [From Augmentin] Allergy Rash/Hives Verified 10/09/21 18:28 cefuroxime Allergy Rash/Hives Verified 10/09/21 18:28 clavulanic acid Allergy Rash/Hives Verified 10/09/21 18:28 [From Augmentin] sulfamethoxazole Allergy Diarrhea Verified 10/09/21 18:28 [From Bactrim] trimethoprim [From Bactrim] Allergy Diarrhea Verified 10/09/21 18:28 Surgical - Exam Osteopathic Statement: *. No significant issues noted on an osteopathic structural exam other than those noted in the History and Physical/Consult. Vital Signs Pulse Resp BP 110 H 14 133/79 10/09/21 17:01 10/09/21 17:01 10/09/21 17:01 - General well developed, well nourished, no distress - Eyes PERRL - Neck trachea midline - Respiratory normal expansion, normal respiratory effort - Cardiovascular Rhythm: regular - Abdomen Soft nondistended mild tenderness palpation there is surrounding erythema and induration extending on his anterior abdominal wall. There is some purulent drainage around the PEG tube site. - Neurologic normal coordination, normal sensation - Psychiatric oriented to time, oriented to person, oriented to place Results - Labs 10/11/21 12:47 10/11/21 12:47 Abnormal Lab Results - Last 24 Hours (Table) 10/11/21 10/11/21 Range/Units 12:47 12:47 WBC 34.0 H (3.8-10.6) k/uL RBC 3.49 L (4.30-5.90) m/uL Hgb 9.4 L D (13.0-17.5) gm/dL Hct 29.8 L (39.0-53.0) % RDW 21.8 H (11.5-15.5) % Neutrophils # 31.8 H (1.3-7.7) k/uL Lymphocytes # 0.9 L (1.0-4.8) k/uL Sodium 128 L (137-145) mmol/L Creatinine 0.57 L (0.66-1.25) mg/dL Glucose 113 H (74-99) mg/dL Calcium 8.1 L (8.4-10.2) mg/dL Alkaline Phosphatase 205 H (38-126) U/L Total Protein 5.1 L (6.3-8.2) g/dL Albumin 2.6 L (3.5-5.0) g/dL Microbiology - Last 24 Hours (Table) 10/09/21 17:57 Blood Culture - Preliminary Blood No Growth after 24 hours 10/09/21 17:41 Blood Culture - Preliminary Blood No Growth after 24 hours Diabetes panel 10/11/21 Range/Units 12:47 Sodium 128 L (137-145) mmol/L Potassium 3.5 (3.5-5.1) mmol/L Chloride 99 (98-107) mmol/L Carbon Dioxide 23 (22-30) mmol/L BUN 12 (9-20) mg/dL Creatinine 0.57 L (0.66-1.25) mg/dL Glucose 113 H (74-99) mg/dL Calcium 8.1 L (8.4-10.2) mg/dL AST 43 (17-59) U/L ALT 35 (4-49) U/L Alkaline Phosphatase 205 H (38-126) U/L Total Protein 5.1 L (6.3-8.2) g/dL Albumin 2.6 L (3.5-5.0) g/dL Calcium panel 10/11/21 Range/Units 12:47 Calcium 8.1 L (8.4-10.2) mg/dL Albumin 2.6 L (3.5-5.0) g/dL Pituitary panel 10/11/21 Range/Units 12:47 Sodium 128 L (137-145) mmol/L Potassium 3.5 (3.5-5.1) mmol/L Chloride 99 (98-107) mmol/L Carbon Dioxide 23 (22-30) mmol/L BUN 12 (9-20) mg/dL Creatinine 0.57 L (0.66-1.25) mg/dL Glucose 113 H (74-99) mg/dL Calcium 8.1 L (8.4-10.2) mg/dL Adrenal panel 10/11/21 Range/Units 12:47 Sodium 128 L (137-145) mmol/L Potassium 3.5 (3.5-5.1) mmol/L Chloride 99 (98-107) mmol/L Carbon Dioxide 23 (22-30) mmol/L BUN 12 (9-20) mg/dL Creatinine 0.57 L (0.66-1.25) mg/dL Glucose 113 H (74-99) mg/dL Calcium 8.1 L (8.4-10.2) mg/dL Total Bilirubin 0.6 (0.2-1.3) mg/dL AST 43 (17-59) U/L ALT 35 (4-49) U/L Alkaline Phosphatase 205 H (38-126) U/L Total Protein 5.1 L (6.3-8.2) g/dL Albumin 2.6 L (3.5-5.0) g/dL Assessment and Plan Assessment: Anterior abdominal wall cellulitis Plan: Patient has anterior abdominal wall cellulitis and possible small abscess around his PEG tube site. I did express 20cc of purulent drainage. I did cut the sutures and the bumper to allow for more drainage. The family states the patient's mentation has significantly improved over the last several hours once the wound did begin to drain. At this time I do not recommend incision and drainage as its draining on its own and incision can further complicate the PEG wound for the long-term and makes it difficult with tube feedings and sizing of G tube. There is also no large drainable fluid collection seen on CT. I'll continue to closely watch the patient. Should he clinically decline I will re evaluate for I and D. For now continue with IV antibiotics and close monitoring along with wound care and dressing changes as needed.
[2021-10-11] MEDS: NIACIN TR 500 MG CAPLET PO SCH (21:33)
--- NOTE | 2021-10-11 22:55 | P.PN ---
Subjective Progress Note Date: 10/11/21 Principal diagnosis: AMS, metastatic cancer The patient presented to the ER on October 09, 2021. At the time, he was having altered mental status intermittently. He was found to be septic, and did have evidence of cellulitis surrounding his recent PEG tube placement. At the time of my visit, the patient was having evaluation by Dr. Rosenbaum in general surgery. According to the family, the patient has had some clearing of his mentation in the last few hours. It is improved compared to the time of admission. Objective - Vital Signs Vital signs: Vital Signs Temp 98.4 F 10/11/21 20:26 Pulse 78 10/11/21 20:26 Resp 18 10/11/21 20:26 BP 143/73 10/11/21 20: Pulse Ox 94 L 10/11/21 20:26 Intake & Output 10/11/21 10/11/21 10/12/21 06:59 18:59 06:59 Intake Total 1450 Balance 1450 Intake: Intake, IV Titration 1250 Amount Clindamycin 600 mg In 50 Dextrose 5% in Water 50 ml @ 50 mls/hr IVPB Q6H [facility] Rx#:[id number] Dextrose 5%-0.45% NaCl 1, 1200 000 ml @ 125 mls/hr IV . Q8H [facility] Rx#:[id number] Oral 200 Other: Voiding Method Urinal Urinal # Voids 3 1 - Constitutional General appearance: Present: no acute distress - EENT Eyes: Present: EOMI, PERRLA ENT: Present: hearing grossly normal - Gastrointestinal General gastrointestinal: Present: tenderness (noted erythema noted surrounding PEG). Absent: distended - Labs CBC & Chem 7: 10/11/21 12:47 10/11/21 12:47 Labs: Abnormal Lab Results - Last 24 Hours (Table) 10/11/21 10/11/21 Range/Units 12:47 12:47 WBC 34.0 H (3.8-10.6) k/uL RBC 3.49 L (4.30-5.90) m/uL Hgb 9.4 L D (13.0-17.5) gm/dL Hct 29.8 L (39.0-53.0) % RDW 21.8 H (11.5-15.5) % Neutrophils # 31.8 H (1.3-7.7) k/uL Lymphocytes # 0.9 L (1.0-4.8) k/uL Sodium 128 L (137-145) mmol/L Creatinine 0.57 L (0.66-1.25) mg/dL Glucose 113 H (74-99) mg/dL Calcium 8.1 L (8.4-10.2) mg/dL Alkaline Phosphatase 205 H (38-126) U/L Total Protein 5.1 L (6.3-8.2) g/dL Albumin 2.6 L (3.5-5.0) g/dL Microbiology - Last 24 Hours (Table) 10/11/21 16:22 Wound Culture - Preliminary Abdomen 10/09/21 17:57 Blood Culture - Preliminary Blood No Growth after 48 hours 10/09/21 17:41 Blood Culture - Preliminary Blood No Growth after 48 hours Assessment and Plan Assessment: The patient is a 66-year-old male with a history of a recently 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 He underwent 30 Gy in 10 fractions to the posterior fossa finishing on 08/31/21. The patient subsequently initiated systemic therapy, but has only been able to tolerate 2 cycles of chemotherapy. He recently required PEG tube placement, and is had worsening altered mental status over the past several days. 1. AMS - at the time of my visit, the patient seemed to be thinking clearly. However, the patient's family said that this is improvement compared to earlier. I reviewed his CT scan of the brain, as well as his MRI of the brain from September 27. His [employer] disease appears to be well controlled, and I do not think this is contributing to his alteration in mental status. 2. Metastatic espohageal cancer: As noted above, the patient has had decline in his performance status as well as difficulty with tolerating systemic therapy. The patient's family has expressed some interest in being evaluated by hospice. I do not think that is inappropriate in his case. He has not tolerated treatment well to this point, and has struggled to maintain nutrition. It is reasonable to see if his symptoms improve with improvement of his acute infection. Time with Patient: Less than 30
[2021-10-12] MEDS: DEXTROSE 5%-0.45% NACL 1,000 ML IV SCH ×2 (04:07→14:19)
[2021-10-12] MEDS: LEVOTHYROXINE 100 MCG TAB PO SCH (05:59)
[2021-10-12 06:03] LABS: Anisocytosis Moderate; HGB 9.1 gm/dL (13.0-17.5); Hypochromasia Slight; MCH 25.9 pg (25.0-35.0); MCHC 30.3 g/dL (31.0-37.0); MCV 85.2 fL (80.0-100.0); Mean Platelet Volume 8.1; Microcytosis Slight; Platelet Count 215 k/uL (150-450); Poikilocytosis Slight; RBC 3.53 m/uL (4.30-5.90); RDW 21.4 % (11.5-15.5)
[2021-10-12 06:36] LABS: ALT 34 U/L (4-49); AST 39 U/L (17-59); African American GFR (CKD) >90 (>60 ml/min/1.73 sqM); Albumin 2.5 g/dL (3.5-5.0); Albumin/Globulin Ratio 0.9; Alkaline Phosphatase 199 U/L (38-126); Anion Gap 8 mmol/L; Blood Urea Nitrogen 11 mg/dL (9-20); Calcium 8.1 mg/dL (8.4-10.2); Carbon Dioxide 25 mmol/L (22-30); Chloride 97 mmol/L (98-107); Globulin 2.7 g/dL; Glucose 110 mg/dL (74-99); Non-African American GFR(CKD) >90 (>60 ml/min/1.73 sqM); Potassium 3.7 mmol/L (3.5-5.1); Sodium 130 mmol/L (137-145); Total Bilirubin 0.5 mg/dL (0.2-1.3); Total Protein 5.2 g/dL (6.3-8.2)
[2021-10-12 07:15] LABS: Anisocytosis (M) Present; Band Neutrophils % 7 %; Neutrophils % (M) 87 %; Nucleated Red Blood Cells 0 /100 WBC (0-0); Total Cells Counted 100
--- NOTE | 2021-10-12 08:07 | P.CONS ---
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 and this patient did have a PEG tube placement about a week ago for feeding purposes the patient has been brought into the ER 2 days ago for evaluation of dehydration mental status changes as patient has been eating and drinking and has been advised to go to the ER per advice of his oncologist patient on presentation to the hospital was afebrile however he did spike a fever this morning of 101.4 F patient also noticed to have elevated white count that is up to 34,000 today with a left s hift BUN and creatinine has been normal ALT is mildly elevated urine has been negative patient did have a chest x-ray on admission low lung volumes without acute cardiopulmonary disease patient did have abdominal x-rays nonspecific nonobstructive bowel gas pattern patient did have a CT of the brain fullness of the pituitary fossa no evidence of acute subacute CVA, patient has been treated with Albamycin as the patient was noticed to have erythema around his PEG tube site which seems to have extended across his abdomen as per the history provided by the family the bedside patient also have slight drainage from his PEG tube site he did have blood cultures drawn which has been negative so far most information has been obtained from review the chart and talking to the family member as the patient was nonverbal and did not answer any question Review of Systems Positive points has been mentioned in HPI complete review could not be obtained because of his underlying mental status Past Medical History Past Medical History: Cancer, Hyperlipidemia, Hypertension Additional Past Medical History / Comment(s): Esophageal Cancer History of Any Multi-Drug Resistant Organisms: None Reported Past Surgical History: Breast Surgery, Orthopedic Surgery Additional Past Surgical History / Comment(s): 10/06/21 PEG inserted, EGDs/bandin gs, esophageal tear repair, colonoscopy, pituitary tumor removal, nasal polyps removed, R posterior ankle tumor removal, R breast biopsy Past Anesthesia/Blood Transfusion Reactions: No Reported Reaction Additional Past Anesthesia/Blood Transfusion Reaction / Comm: Pt has received blood in past without reaction. Past Psychological History: Anxiety Smoking Status: Never smoker - Past Family History Father Family Medical History: Cancer Additional Family Medical History / Comment(s): Father had bladder cancer which he of at the age of 72 yrs. Mother Family Medical History: No Reported History Additional Family Medical History / Comment(s): Mother is healthy Medications and Allergies Home Medications Medication Instructions Recorded Confirmed Type Budesonide [Pulmicort] 0.25 mg INHALATION RT-BID PRN 12/08/18 10/09/21 History Fluticasone/Salmeterol [Advair 1 puff INHALATION RT-BID 12/08/18 10/09/21 History 250-50 Diskus] Levothyroxine Sodium 100 mcg PO DAILY 12/08/18 10/09/21 History Multivitamins, Thera [Multivitamin 1 tab PO DAILY 12/08/18 10/09/21 History (formulary)] Niacin [Niacin ER] 1,000 mg PO DAILY 12/08/18 10/09/21 History Omeprazole [PriLOSEC] 20 mg PO DAILY 12/08/18 10/09/21 History Sertraline HCl [Zoloft] 150 mg PO DAILY 12/08/18 10/09/21 History atenoloL [Tenormin] 25 mg PO BID 12/08/18 10/09/21 History gemfibroziL [Lopid] 600 mg PO BID 12/08/18 10/09/21 History Albuterol Sulfate [Ventolin HFA] 2 puff INHALATION RT-Q6H PRN 09/26/21 10/09/21 History Ascorbic Acid [Vitamin C] 500 mg PO DAILY 09/26/21 10/09/21 History Cholecalciferol (Vitamin D3) 125 mcg PO DAILY 09/26/21 10/09/21 History [Vitamin D3 (125 MCG = 5,000 IU)] Dupilumab [Dupixent Syringe] 1 dose SQ DIRECTED 09/26/21 10/09/21 History Lovastatin [Mevacor] 80 mg PO DAILY 09/26/21 10/09/21 History Ondansetron [Zofran] 4 mg PO Q8H PRN 09/26/21 10/09/21 History Prochlorperazine [Compazine] 10 mg PO TID PRN 09/26/21 10/09/21 History Allergies Allergy/AdvReac Type Severity Reaction Status Date / Time amoxicillin [From Augmentin] Allergy Rash/Hives Verified 10/09/21 18:28 cefuroxime Allergy Rash/Hives Verified 10/09/21 18:28 clavulanic acid Allergy Rash/Hives Verified 10/09/21 18:28 [From Augmentin] sulfamethoxazole Allergy Diarrhea Verified 10/09/21 18:28 [From Bactrim] trimethoprim [From Bactrim] Allergy Diarrhea Verified 10/09/21 18:28 Physical Exam Vitals: Vital Signs Temp Pulse Pulse Resp BP BP Pulse Ox 10/11/21 12:06 100.9 F H 87 18 133/71 95 10/11/21 10:45 101.4 F H 10/11/21 08:24 88 10/11/21 08:13 91 94 L 10/11/21 08:00 79 18 10/11/21 04:27 98.6 F 79 18 144/67 94 L 10/10/21 22:16 98.7 F 84 18 130/67 95 10/10/21 20:05 18 10/10/21 20:00 98.1 F 79 16 149/79 99 10/10/21 19:53 84 10/10/21 19:41 82 98 10/10/21 15:57 98.2 F 76 16 129/81 95 Intake and Output 10/10/21 10/11/21 10/11/21 22:59 06:59 14:59 Intake Total 1450 Balance 1450 Intake: Intake, IV Titration 1250 Amount Clindamycin 600 mg In 50 Dextrose 5% in Water 50 ml @ 50 mls/hr IVPB Q6H [facility] Rx#:[id number] Dextrose 5%-0.45% NaCl 1, 1200 000 ml @ 125 mls/hr IV . Q8H [facility] Rx#:[id number] Oral 200 Other: Voiding Method Urinal Urinal # Voids 3 1 Weight 102.965 kg GENERAL DESCRIPTION: Elderly male lying in bed, no distress. No tachypnea or accessory muscle of respiration use. HEENT: Shows Pallor , no scleral icterus. Oral mucous membrane is dry. No pharyngeal erythema or thrush NECK: Trachea central, no thyromegaly. LUNGS: Unlabored breathing. Clear to auscultation anteriorly. No wheeze or crackle. HEART: S1, S2, regular rate and rhythm. No loud murmur ABDOMEN: Soft, mild distention and abdominal wall redness around the PEG tube site EXTREMITIES: No edema of feet. SKIN: No rash, no masses palpable. NEUROLOGICAL: The patient is awake, but nonverbal orientation could not be determined Results CBC & Chem 7: 10/12/21 05:48 10/12/21 05:48 Labs: Abnormal Lab Results - Last 24 Hours (Table) 10/11/21 10/11/21 Range/Units 12:47 12:47 WBC 34.0 H (3.8-10.6) k/uL RBC 3.49 L (4.30-5.90) m/uL Hgb 9.4 L D (13.0-17.5) gm/dL Hct 29.8 L (39.0-53.0) % RDW 21.8 H (11.5-15.5) % Neutrophils # 31.8 H (1.3-7.7) k/uL Lymphocytes # 0.9 L (1.0-4.8) k/uL Sodium 128 L (137-145) mmol/L Creatinine 0.57 L (0.66-1.25) mg/dL Glucose 113 H (74-99) mg/dL Calcium 8.1 L (8.4-10.2) mg/dL Alkaline Phosphatase 205 H (38-126) U/L Total Protein 5.1 L (6.3-8.2) g/dL Albumin 2.6 L (3.5-5.0) g/dL Microbiology - Last 24 Hours (Table) 10/09/21 17:57 Blood Culture - Preliminary Blood No Growth after 24 hours 10/09/21 17:41 Blood Culture - Preliminary Blood No Growth after 24 hours Assessment and Plan (1) Cellulitis Current Visit: Yes Status: Acute Priority: High Code(s): L03.90 - CELLULITIS, UNSPECIFIED SNOMED Code(s): 605228693 Plan: 1patient with a fever and this patient presented to hospital with mental status changes patient did have a history of metastatic esophageal cancer with recent PEG tube placement and did have evidence of abdominal wall cellulitis around his PEG tube site will need to cover for gram-positive skin jaylan to be the likely pathogen however underlying gram-negative infection not entirely excluded. 2patient with multiple antibiotic allergies that would limit the number of antibiotics safe to use. 3discontinue clindamycin. 4mark the area of the redness. 5wait for the CT abdominal pelvis to be completed this afternoon. 6vancomycin pharmacy to dose along with Azactam 2 g every 8 hours should prov antione adequate antibiotic coverage. Family the bedside multiple questions were answered We will follow on clinical condition and cultures to further adjust medication if needed Thank you for this consultation will follow this patient along with you Time with Patient: Greater than 30
[2021-10-12] MEDS: SYMBICORT 80-4.5 MCG INHALER INHALATION SCH ×2 (09:10→19:24)
[2021-10-12] MEDS: SERTRALINE 100 MG TAB PO SCH (09:23)
[2021-10-12] MEDS: MULTIVITAMINS, THERA 1 EACH TAB PO SCH (09:24)
[2021-10-12] MEDS: atenoloL 25 MG TAB PO SCH ×2 (09:24→21:35)
[2021-10-12] MEDS: AZTREONAM 2 GM in SODIUM CHLORIDE 0.9% 100 ML IVPB SCH ×2 (09:25→15:35)
[2021-10-12] MEDS: VANCOMYCIN 1,750 MG in SODIUM CHLORIDE 0.9% 500 ML 500 ML IVPB SCH ×2 (09:25→15:35)
[2021-10-12] MEDS: PANTOPRAZOLE 40 MG/10 ML VIAL IVP SCH (09:25)
--- NOTE | 2021-10-12 14:30 | P.CONS ---
History of Present Illness - Reason for Consult Consult date: 10/12/21 info meeting/goals of care Requesting physician: Dorothea Marshall - Chief Complaint AMS, weakness, nausea and vomiting - History of Present Illness This is a 66-year-old patient with a past medical history of asthma, GERD, hypertension, hyperlipidemia, hypothyroid, and receiving palliative treatment for metastatic esophageal adenocarcinoma. Patient presented to the on 10/09/21 with concerns for dehydration and altered mental status. Patient had a PEG tuce placed 1 week ago. The next day patient noticed to have a redness around the PEG tube site and started looking worse. It was read [place]. The patient has not been eating and drinking. Patient was advised to come the emergency department by Dr. Huff's office. Patient does have metastatic esophageal cancer. Patient does have associated brain lesions. Patient has undergone radiation to the brain as well as a couple doses of chemotherapy. Confusion has been waxing and waning. Review of Systems Review Of Systems: Constitutional: + fever, chills, andnight sweats. + weakness and fatigue . HEENT: No headache. No blurred vision or double vision, no loss of vision. No loss of Hearing, no ringing in the ears, no dizziness. No nasal drainage or congestion. No epistaxis. No sore throat. Lungs: + shortness of breath, + productive cough, +wheezing. Cardiovascular: No chest pain, no lower extremity edema. No palpitations. No paroxysmal nocturnal dyspnea. No orthopnea. No lightheadedness or dizziness. No syncopal episodes. Abdominal: + abdominal pain. + nausea and vomiting. No diarrhea. + constipation. Genitourinary: No dysuria, increased frequency, urgency. No urinary retention. Musculoskeletal: No myalgias. + muscle weakness, + gait dysfunction No back pain. No neck pain. Integumentary: Abdomen red, No wounds, no lesions. No rash or pruritus. No unusual bruising. No change in hair or nails. Neurologic: No aphasia. No facial droop. + confusion. No head injury. No headache. No paralysis. No paresthesia. Psychiatric: No depression. No anxiety. No mood swings. Past Medical History Past Medical History: Cancer, Hyperlipidemia, Hypertension Additional Past Medical History / Comment(s): Esophageal Cancer History of Any Multi-Drug Resistant Organisms: None Reported Past Surgical History: Breast Surgery, Orthopedic Surgery Additional Past Surgical History / Comment(s): 10/06/21 PEG inserted, EGDs/bandings, esophageal tear repair, colonoscopy, pituitary tumor removal, nasal polyps removed, R posterior ankle tumor removal, R breast biopsy Past Anesthesia/Blood Transfusion Reactions: No Reported Reaction Additional Past Anesthesia/Blood Transfusion Reaction / Comm: Pt has received blood in past without reaction. Past Psychological History: Anxiety Smoking Status: Never smoker - Past Family History Father Family Medical History: Cancer Additional Family Medical History / Comment(s): Father had bladder cancer which he of at the age of 72 yrs. Mother Family Medical History: No Reported History Additional Family Medical History / Comment(s): Mother is healthy Medications and Allergies Home Medications Medication Instructions Recorded Confirmed Type Budesonide [Pulmicort] 0.25 mg INHALATION RT-BID PRN 12/08/18 10/09/21 History Fluticasone/Salmeterol [Advair 1 puff INHALATION RT-BID 12/08/18 10/09/21 History 250-50 Diskus] Levothyroxine Sodium 100 mcg PO DAILY 12/08/18 10/09/21 History Multivitamins, Thera [Multivitamin 1 tab PO DAILY 12/08/18 10/09/21 History (formulary)] Niacin [Niacin ER] 1,000 mg PO DAILY 12/08/18 10/09/21 History Omeprazole [PriLOSEC] 20 mg PO DAILY 12/08/18 10/09/21 History Sertraline HCl [Zoloft] 150 mg PO DAILY 12/08/18 10/09/21 History atenoloL [Tenormin] 25 mg PO BID 12/08/18 10/09/21 History gemfibroziL [Lopid] 600 mg PO BID 12/08/18 10/09/21 History Albuterol Sulfate [Ventolin HFA] 2 puff INHALATION RT-Q6H PRN 09/26/21 10/09/21 History Ascorbic Acid [Vitamin C] 500 mg PO DAILY 09/26/21 10/09/21 History Cholecalciferol (Vitamin D3) 125 mcg PO DAILY 09/26/21 10/09/21 History [Vitamin D3 (125 MCG = 5,000 IU)] Dupilumab [Dupixent Syringe] 1 dose SQ DIRECTED 09/26/21 10/09/21 History Lovastatin [Mevacor] 80 mg PO DAILY 09/26/21 10/09/21 History Ondansetron [Zofran] 4 mg PO Q8H PRN 09/26/21 10/09/21 History Prochlorperazine [Compazine] 10 mg PO TID PRN 09/26/21 10/09/21 History Allergies Allergy/AdvReac Type Severity Reaction Status Date / Time amoxicillin [From Augmentin] Allergy Rash/Hives Verified 10/09/21 18:28 cefuroxime Allergy Rash/Hives Verified 10/09/21 18:28 clavulanic acid Allergy Rash/Hives Verified 10/09/21 18:28 [From Augmentin] sulfamethoxazole Allergy Diarrhea Verified 10/09/21 18:28 [From Bactrim] trimethoprim [From Bactrim] Allergy Diarrhea Verified 10/09/21 18:28 Physical Exam Vitals: Vital Signs Temp Pulse Pulse Resp BP Pulse Ox 10/12/21 12:30 98.0 F 68 18 139/73 95 10/12/21 08:00 74 18 10/12/21 05:00 98.2 F 74 18 135/78 96 10/11/21 23:33 82 10/11/21 23:21 80 10/11/21 20:26 98.4 F 78 18 143/73 94 L Intake and Output 10/11/21 10/12/21 10/12/21 22:59 06:59 14:59 Output Total 700 Balance -700 Output: Urine 700 Other: Voiding Method Urinal Urinal # Voids 0 Weight 111 kg General: Patient awake alert and oriented x 3. No acute distress. HEENT: Head is atraumatic, normocephalic Neck is supple. Sclerae are clear. Pupils equal, round and reactive to light bilaterally. CV: Heart regular in rate and rhythm positive S1 and S2. No S3. No S4. No clicks, rubs or murmurs. No JVD. +1 Peripheral pulses Lungs: Scattered rhonchi throughout, slight inspiratory wheeze. Respirations even and nonlabored. No intercostal retractions. Abdomen/GI: Firm, protuberant. Hypoactive Bowel sounds present.. No abdominal tenderness. : external catheter in place Musculoskeletal/ Extremities: No tenderness on muscular exam. No ecchymosis. Vascular: Radial pulses equal. +2, + 1 lower extremity edema Skin: No rash. redness noted to abdomen Neurologic: Awake, alert and oriented times 3. Psychiatric: Appropriate mood and affect. Results CBC & Chem 7: 10/12/21 05:48 10/12/21 05:48 Labs: Abnormal Lab Results - Last 24 Hours (Table) 10/12/21 10/12/21 Range/Units 05:48 05:48 WBC 30.0 H (3.8-10.6) k/uL RBC 3.53 L (4.30-5.90) m/uL Hgb 9.1 L (13.0-17.5) gm/dL Hct 30.0 L (39.0-53.0) % MCHC 30.3 L (31.0-37.0) g/dL RDW 21.4 H (11.5-15.5) % Neutrophils # (Manual) 28.20 H (1.3-7.7) k/uL Lymphocytes # (Manual) 0.60 L (1.0-4.8) k/uL Monocytes # (Manual) 1.20 H (0-1.0) k/uL Sodium 130 L (137-145) mmol/L Chloride 97 L (98-107) mmol/L Creatinine 0.58 L (0.66-1.25) mg/dL Glucose 110 H (74-99) mg/dL Calcium 8.1 L (8.4-10.2) mg/dL Alkaline Phosphatase 199 H (38-126) U/L Total Protein 5.2 L (6.3-8.2) g/dL Albumin 2.5 L (3.5-5.0) g/dL Microbiology - Last 24 Hours (Table) 10/11/21 16:22 Gram Stain - Preliminary Abdomen Wound Culture - Preliminary 10/09/21 17:57 Blood Culture - Preliminary Blood No Growth after 48 hours 10/09/21 17:41 Blood Culture - Preliminary Blood No Growth after 48 hours Chest x-ray: report reviewed Abdominal x-ray: report reviewed CT scan - abdomen: report reviewed CT scan - pelvis: report reviewed Assessment and Plan Plan: Reason for consult - Goals of care Social * Occupation - Retired - worked for the [employer] * Marital status - for 16 years, - Louise * Children/grandchildren - Combined family, ivonne has 5 children, Louise has 3 children. * Residence - Patient lives at home * Who do you reside with - With Louise and a son * ETOH - Quit 1997 * Tobacco - Never * Illicit drugs - Denies Spiritual/Cultural * A spiritual person - Yes * Tenriism - [employer] * Belong to a particular mandaen - Yes [employer] * Beliefs a source of comfort and strength - Yes, real estate specialist will come to visit patient at home * Presybeterian or cultural practices restrictions - None identified * EOL considerations/rituals? No Functional Assessment * Able to walk independently - No, 1 person assist + walker. Brain CA has affected his balance * Assistive devices - Walker * Able to use the bathroom independently - No * Continent - Yes * Require assistance bathing- Yes * Able to feed self - Yes * Who prepares meals - - Louise * How many meals a day eaten - Only able to have small amounts of food d/t pain from esophogeal, CA * What percentage of meals eaten daily - < 10% * Able to clean house/do laundry - No * Transportation - Yes, * Able to shop - No * Who manages medications - * Who manages finances - PPS score - 30% Psychological/Emotional * Dementia present - No * Confusion - Yes, acute * Insight and judgement - No * How does patient cope with stress - Talks with family, prays * Depression - No * Suicidal thoughts - No * Good support system - Yes, family and mandaen * Patients goals - Comfort * Frequent hospitalizations - No * Desire to keep coming back to the hospital for treatment - No Symptoms * Pain - 0/10, Continue Morphine and Tylenol prn * Fatigue - + weakness, fatigue, and lethargic * SOB - yes, even at rest, Continue Albuterol neb, Pulmicort, and Symbicort * Insomnia - lately he has been restless and confused more at night * N/V - none currently, continue Zofran prn * Anxiety - denies, continue Zoloft * Depression - denies, continue Zoloft * Confusion - Mentation has waxed and waned, currently A&O x 3 * Agitation - none * Hallucinations - none * Appetite/weight loss/nutrition - has a good appetite and is asking his for food, continue MVI and niacin * Dysphagia - yes d/t esophageal cancer and chemo/radiation * Constipation - Yes * Incontinence - No, currently has an external catheter in place * Itch - none Summary/Goals - Met with patient's , Louise, and her son. Education provided on the patient's condition, his disease process, and prognosis. Louise states that she was told that he only has approximately 3 weeks to live. She said his cancer treatment were palliative. They have had several discussions in the past about end of life wishes. The patient wishes to comfortably and peacefully in his own home. She states his mental status has improved since starting on antibiotics and having his abscess drained. She would like to continue his course of antibiotics, then take him home. Louise stated she would like the patient to continue tube feeding via his peg tube upon discharge. It was explained that hospice would continue tube feeding until he no longer tolerates it. At that point they would stop it. Hospice philosophies and support services explained to Louise. She agreed to an informational meeting. Recommendations - Discharge home with hospice services Advanced Directives - Yes, Louise DPOA Code Status - DNR Thank you for this consult Anahy Veliz [facility] Palliative Care [facility] [id number] Email: [email or web address] Time with Patient: Greater than 30
--- NOTE | 2021-10-12 17:30 | P.PN ---
Subjective Progress Note Date: 10/12/21 Principal diagnosis: abd distension, possible infection, on palliative treatment for metastatic esophageal adenocarcinoma In f/u today pt is much more alert, he is stating he is hungry, less abd pain after Dr. Trumbull adjusted PEG and expressed fluid from around the insertion sit e. Last fever 100.9F was yesterday at noon. reports pt passed a little gas. Objective - Vital Signs Vital signs: Vital Signs Temp 98.0 F 10/12/21 12:30 Pulse 68 10/12/21 12:30 Resp 18 10/12/21 12:30 BP 139/73 10/12/21 12:30 Pulse Ox 95 10/12/21 12:30 Intake & Output 10/11/21 10/12/21 10/12/21 18:59 06:59 18:59 Output Total 700 Balance -700 Weight 111 kg Output: Urine 700 Other: Voiding Method Urinal Urinal Urinal # Voids 1 0 - Constitutional General appearance: Present: cooperative, no acute distress, obese - EENT Eyes: Present: anicteric sclerae, EOMI ENT: Present: hearing grossly normal - Respiratory Respiratory: bilateral: CTA - Cardiovascular Rhythm: regular Heart sounds: normal: S1, S2 Abnormal Heart Sounds: Absent: systolic murmur, diastolic murmur, rub, S3 Gallop, S4 Gallop, click, other - Peripheral edema leg Peripheral Edema: bilateral: Trace - Gastrointestinal Gastrointestinal Comment(s): redness and warmth of the abd is improved General gastrointestinal: Present: soft - Integumentary Integumentary: Present: normal - Neurologic Neurologic: Present: CNII-XII intact (grossly) - Musculoskeletal Musculoskeletal: Present: generalized weakness - Psychiatric Psychiatric: Present: A&O x's 3, appropriate affect, intact judgment & insight - Labs CBC & Chem 7: 10/12/21 05:48 10/12/21 05:48 Labs: Abnormal Lab Results - Last 24 Hours (Table) 10/12/21 10/12/21 Range/Units 05:48 05:48 WBC 30.0 H (3.8-10.6) k/uL RBC 3.53 L (4.30-5.90) m/uL Hgb 9.1 L (13.0-17.5) gm/dL Hct 30.0 L (39.0-53.0) % MCHC 30.3 L (31.0-37.0) g/dL RDW 21.4 H (11.5-15.5) % Neutrophils # (Manual) 28.20 H (1.3-7.7) k/uL Lymphocytes # (Manual) 0.60 L (1.0-4.8) k/uL Monocytes # (Manual) 1.20 H (0-1.0) k/uL Sodium 130 L (137-145) mmol/L Chloride 97 L (98-107) mmol/L Creatinine 0.58 L (0.66-1.25) mg/dL Glucose 110 H (74-99) mg/dL Calcium 8.1 L (8.4-10.2) mg/dL Alkaline Phosphatase 199 H (38-126) U/L Total Protein 5.2 L (6.3-8.2) g/dL Albumin 2.5 L (3.5-5.0) g/dL Microbiology - Last 24 Hours (Table) 10/11/21 16:22 Gram Stain - Preliminary Abdomen Wound Culture - Preliminary 10/09/21 17:57 Blood Culture - Preliminary Blood No Growth after 48 hours 10/09/21 17:41 Blood Culture - Preliminary Blood No Growth after 48 hours Assessment and Plan (1) Chemotherapy induced nausea and vomiting Current Visit: Yes Status: Acute Priority: High Code(s): R11.2 - NAUSEA WITH VOMITING, UNSPECIFIED; T45.1X5A - ADVERSE EFFECT OF ANTINEOPLASTIC AND IMMUNOSUP DRUGS, INIT SNOMED Code(s): 15141801 (2) Esophageal adenocarcinoma Current Visit: Yes Status: Acute Priority: High Code(s): C15.9 - MALIGNANT NEOPLASM OF ESOPHAGUS, UNSPECIFIED SNOMED Code(s): 688356083 (3) Altered mental status Current Visit: Yes Status: Acute Priority: High Code(s): R41.82 - ALTERED MENTAL STATUS, UNSPECIFIED SNOMED Code(s): 420957972 (4) Cellulitis Current Visit: Yes Status: Acute Priority: High Code(s): L03.90 - CELLULITIS, UNSPECIFIED SNOMED Code(s): 740500619 Plan: We discussed philosophy of palliative care and hospice and intent of care. Family expressed their concerns for pt and his wishes, quality of life, prognosis and end of life care. The decision they have come to is that pt wants to spend last days with family at their [facility]. Pt and family were reassured that the decision to treat symptoms and allow natural is very reasonable. Life expectancy is measured in weeks. They were also very concerned about the pt being hungry. We discussed the physiology of end of life and the decreased desire and need for food. Encouraged pleasure eating and Palliative INFANT NANNY did confirm that hospice will cont to allow pt tube feedings for comfort. Spent 50min reviewing case with pt family. All questions were answered to their satisfaction. Agree with discharge to the care of family with hospice support as soon as pt and family ready Time with Patient: Greater than 30 (50 min spent counseling and coordinating care)
[2021-10-12] MEDS: MORPHINE SULFATE 4 MG/ML SYRINGE IV PRN (19:45)
--- NOTE | 2021-10-12 20:51 | P.PN ---
Progress Note - Text Progress Note Date: 10/12/21 Chief Complaint: Altered mental status This is a 66-year-old patient who follows with Dr. Contreras. Chronic stable medical conditions include asthma, GERD, hypertension, hyperlipidemia, hypothyroid. History is obtained by the at the bedside. Patient was diagnosed with metastatic esophageal cancer in July 2021. Being followed by Dr. Huff oncologist. Found to have brain metastasis. She has received 10 brain radiation treatments and advanced to chemotherapy is done. Last one being 2 weeks ago. About 5 days ago patient had a PEG tube placed by Dr. lara. The next day patient noticed to have a redness around the PEG tube site and started looking worse. It was read [place]. Patient does able to take some liquids by mouth. Patient normally has a bowel movement every day but S had no bowel movement for last 3 days. Have a fever yesterday. Patient been using a walker for last 2 weeks. Has been becoming confused. Patient had a MRI about 10 years ago. Showed some improvement. Patient was brought in because of increasing confusion waxing and waning mental status. Decreased oral intake. No pain reported. Patient's Louise is the DP OA. Admitted with sepsis, source felt to be PEG tube site possible abscess cellulitis. Acute delirium. October 11: Clindamycin discontinued. Started on IV aztreonam and vancomycin per ID. Patient draining more from the PEG tube site. Computed tomography scan of the abdomen ordered. Discussed with the and daughter the bedside. Patient able to answer simple questions today. Tired. Spiking fevers October 5: Significant amount of pus was squeezed out by Dr. lara at the bedside yesterday. Dressing in place. Local pus discharge present. Patient on clear liquid. at the bedside. No fever today. Diet being advanced by surgery. Active Medications Acetaminophen (Acetaminophen Tab 500 Mg Tab) 500 mg PO Q6HR PRN PRN Reason: Fever and/ or Pain Last Admin: 10/11/21 11:15 Dose: 500 mg Documented by: Albuterol Sulfate (Albuterol Nebulized 2.5 Mg/3 Ml) 2.5 mg INHALATION RT-Q6H PRN PRN Reason: Shortness Of Breath Last Admin: 10/11/21 23:20 Dose: 2.5 mg Documented by: Atenolol (Atenolol 25 Mg Tab) 25 mg PO BID HOMER Last Admin: 10/12/21 09:24 Dose: 25 mg Documented by: Budesonide (Budesonide 0.25 Mg/2 Ml Nebu) 0.25 mg INHALATION RT-BID PRN PRN Reason: Shortness Of Breath Budesonide/Formoterol Fumarate (Symbicort 80-4.5 Mcg Inhaler) 2 puff INHALATION RT-BID [facility] Last Admin: 10/12/21 19:24 Dose: 2 puff Documented by: Dextrose/Sodium Chloride (Dextrose 5%-1/2ns Iv Soln) 1,000 mls @ 125 mls/hr IV .Q8H [facility] Last Admin: 10/12/21 14:19 Dose: 125 mls/hr Documented by: Aztreonam 2 gm/ Sodium (Chloride) 100 mls @ 33.3 mls/hr IVPB Q8HR [facility]; Protocol Last Admin: 10/12/21 15:35 Dose: 33.3 mls/hr Documented by: Vancomycin HCl 1,750 mg/ (Sodium Chloride) 500 mls @ 167 mls/hr IVPB Q8H [facility] Last Admin: 10/12/21 15:35 Dose: 167 mls/hr Documented by: Levothyroxine Sodium (Levothyroxine 100 Mcg Tab) 100 mcg PO DAILY@0630 [facility] Last Admin: 10/12/21 05:59 Dose: 100 mcg Documented by: Miscellaneous Information (Vancomycin Trough Due 1 Each Misc) 0 each MISCELLANE DIRECTED ONE Stop: 10/13/21 07:01 Morphine Sulfate (Morphine Sulfate 4 Mg/Ml Syringe) 4 mg IV Q4HR PRN PRN Reason: Severe Pain Last Admin: 10/12/21 19:45 Dose: 4 mg Documented by: Multivitamins (Multivitamins, Thera 1 Each Tab) 1 each PO DAILY [facility] Last Admin: 10/12/21 09:24 Dose: 1 each Documented by: Naloxone HCl (Naloxone 0.4 Mg/Ml 1 Ml Vial) 0.2 mg IV Q2M PRN PRN Reason: Opioid Reversal Niacin (Niacin Tr 500 Mg Caplet) 1,000 mg PO HS [facility] Last Admin: 10/11/21 21:33 Dose: Not Given Documented by: Ondansetron HCl (Ondansetron 4 Mg/2 Ml Vial) 4 mg IVP Q4HR PRN PRN Reason: Nausea And Vomiting Last Admin: 10/11/21 10:44 Dose: 4 mg Documented by: Pantoprazole Sodium (Pantoprazole 40 Mg/10 Ml Vial) 40 mg IVP BID [facility] Last Admin: 10/12/21 09:25 Dose: 40 mg Documented by: Sertraline HCl (Sertraline 100 Mg Tab) 150 mg PO DAILY [facility] Last Admin: 10/12/21 09:23 Dose: 150 mg Documented by: Past medical history to include: Asthma, GERD, hyperlipidemia, essential hypertension, hypothyroid, esophageal cancer with brain metastases has had 10 and radiation treatment in 2 doses of chemotherapy, dysphagia, PEG tube, esophageal varices, vitamin D deficiency, benign pituitary tumor with surgery, COVID in April 2021. Social history: . Does have a walker Wheelchair. Heavy drinker until 1997. No smoking. Family history: Father had bladder cancer. Physical examination: VITAL SIGNS: 98, 68, 18, 139-73, 95% room air GENERAL: Reclining in bed, awake, tired EYES: Pupils equal. Conjunctiva normal. HEENT: External appearance of nose and ears normal, oral cavity dry. NECK: JVD not raised; masses not palpable. HEART: First and second heart sounds are normal; no edema. LUNGS: Respiratory rate normal; decreased breath sounds. ABDOMEN: Soft, tenderness and firmness around the PEG tube site. Some drainage., Localized redness, liver spleen not palpable, no masses palpable. PSYCH: Answering simple questions MUSCULOSKELETAL:No Clubbing/cyanosis;muscles-grossly intact INVESTIGATIONS, reviewed in the clinical context: October 12: White count 30 hemoglobin 9.1 sodium 1:30 potassium 3.7 creatinine 0.58 Computed tomography scan chest abdomen pelvis: Area of inflammation swelling around PEG tube site. Localized abscess possible. October 11: White count 34 hemoglobin 9.4 potassium 3.5 creatinine 0.57 White count 39.7 hemoglobin 10.3 platelets 204 sodium 133 potassium 4.2 creatinine 0.7 AST 41 ALT 56 alkaline phosphatase 224 albumin 3.3 UA positive for protein 1+ Computed tomography scan of the brain: Fullness of the pituitary.. X-ray abdomen 1 view: PEG tube. Nonspecific nonobstructive bowel gas pattern. Chest x-ray film personally reviewed by me-no obvious infiltrate Assessment and plan: -Localized abscess cellulitis at the PEG tube site.: Slow to respond IV aztreonam, IV vancomycin. Pus was drained by squeezing around the PEG tube site. -Sepsis from above: Slow to respond IV fluids. IV aztreonam vancomycin -Metastatic esophageal cancer being followed by Dr. Huff diagnosed in July 2021. Patient has received 10 radiation treatment of the brain and has had 2 cycles of chemotherapy loss and being about 10 days ago. -Mild protein calorie malnutrition from decreased oral intake -Malfunctioning PEG tube. Since started using the PEG tube he's been throwing up the gastric contents. Follow with Dr. lara -Moderate persistent asthma DuoNeb 3 times a day -Hypothyroid Synthroid 100 g a day -GERD Prilosec 20 mg daily -Depression Zoloft 150 mg a day -Essential hypertension Tenormin 25 mg twice a day -Hyperlipidemia Currently hold off patient's Lopid and Mevacor given elevated liver enzymes. -Mild hepatitis likely from chemotherapy. Follow LFTs -Acute metabolic encephalopathy with delirium from underlying sepsis: Some improvement IV fluids, -Louise, /DP OA Continue IV aztreonam and IV vancomycin. Cultures pending. Diet advanced by Dr. lara. Spoke to Olive from oncology team. They consulted palliative care. Plan is for patient to go home with hospice. Total time spent today about 40 minutes with over 25 minutes of discussion.
[2021-10-12] MEDS: NIACIN TR 500 MG CAPLET PO SCH (21:35)
--- NOTE | 2021-10-12 22:21 | P.PN ---
Subjective Progress Note Date: 10/12/21 Principal diagnosis: Fever abdominal wall cellulitis Patient is a 66-year-old male with a past medical history significant for metastatic esophageal cancer with a recent PEG tube placement presenting to the hospital with a fever abdominal wall cellulitis. On today's evaluation that is 10/12/2021, the patient is afebrile, the patient is more awake and alert today and is feeling better breathing comfortably denies having any chest pain shortness of breath or cough or abdominal discomfort and redness has slightly decreased Objective - Vital Signs Vital signs: Vital Signs Temp 98.2 F 10/12/21 05:00 Pulse 74 10/12/21 08:00 Resp 18 10/12/21 08:00 BP 135/78 10/12/21 05:00 Pulse Ox 96 10/12/21 05:00 Intake & Output 10/11/21 10/12/21 10/12/21 18:59 06:59 18:59 Output Total 700 Balance -700 Weight 111 kg Output: Urine 700 Other: Voiding Method Urinal Urinal Urinal # Voids 1 0 - Exam GENERAL DESCRIPTION: An elderly male lying in bed in no distress RESPIRATORY SYSTEM: Unlabored breathing , decreased breath sounds at bases HEART: S1 S2 regular rate and rhythm , ABDOMEN: Soft , abdominal wall swelling redness has slightly decreased EXTREMITIES: No edema feet - Labs CBC & Chem 7: 10/12/21 05:48 10/12/21 05:48 Labs: Abnormal Lab Results - Last 24 Hours (Table) 10/11/21 10/11/21 10/12/21 Range/Units 12:47 12:47 05:48 WBC 34.0 H 30.0 H (3.8-10.6) k/uL RBC 3.49 L 3.53 L (4.30-5.90) m/uL Hgb 9.4 L D 9.1 L (13.0-17.5) gm/dL Hct 29.8 L 30.0 L (39.0-53.0) % MCHC 30.3 L (31.0-37.0) g/dL RDW 21.8 H 21.4 H (11.5-15.5) % Neutrophils # 31.8 H (1.3-7.7) k/uL Neutrophils # (Manual) 28.20 H (1.3-7.7) k/uL Lymphocytes # 0.9 L (1.0-4.8) k/uL Lymphocytes # (Manual) 0.60 L (1.0-4.8) k/uL Monocytes # (Manual) 1.20 H (0-1.0) k/uL Sodium 128 L (137-145) mmol/L Chloride (98-107) mmol/L Creatinine 0.57 L (0.66-1.25) mg/dL Glucose 113 H (74-99) mg/dL Calcium 8.1 L (8.4-10.2) mg/dL Alkaline Phosphatase 205 H (38-126) U/L Total Protein 5.1 L (6.3-8.2) g/dL Albumin 2.6 L (3.5-5.0) g/dL 10/12/21 Range/Units 05:48 WBC (3.8-10.6) k/uL RBC (4.30-5.90) m/uL Hgb (13.0-17.5) gm/dL Hct (39.0-53.0) % MCHC (31.0-37.0) g/dL RDW (11.5-15.5) % Neutrophils # (1.3-7.7) k/uL Neutrophils # (Manual) (1.3-7.7) k/uL Lymphocytes # (1.0-4.8) k/uL Lymphocytes # (Manual) (1.0-4.8) k/uL Monocytes # (Manual) (0-1.0) k/uL Sodium 130 L (137-145) mmol/L Chloride 97 L (98-107) mmol/L Creatinine 0.58 L (0.66-1.25) mg/dL Glucose 110 H (74-99) mg/dL Calcium 8.1 L (8.4-10.2) mg/dL Alkaline Phosphatase 199 H (38-126) U/L Total Protein 5.2 L (6.3-8.2) g/dL Albumin 2.5 L (3.5-5.0) g/dL Microbiology - Last 24 Hours (Table) 10/11/21 16:22 Gram Stain - Preliminary Abdomen Wound Culture - Preliminary 10/09/21 17:57 Blood Culture - Preliminary Blood No Growth after 48 hours 10/09/21 17:41 Blood Culture - Preliminary Blood No Growth after 48 hours Assessment and Plan (1) Cellulitis Current Visit: Yes Status: Acute Priority: High Code(s): L03.90 - CELLULITIS, UNSPECIFIED SNOMED Code(s): 477537067 Plan: 1patient with a fever and this patient presented to hospital with mental status changes patient did have a history of metastatic esophageal cancer with recent PEG tube placement and did have evidence of abdominal wall cellulitis around his PEG tube site will need to cover for gram-positive skin jaylan to be the likely pathogen however underlying gram-negative infection not entirely excluded. 2patient with multiple antibiotic allergies that would limit the number of antibiotics safe to use. 3 CT abdominal pelvis did not show any abdominal wall abscess 4 patient to continue with vancomycin pharmacy to dose along with Azactam 2 g every 8 hours while waiting for the cultures to be finalize Family the bedside multiple questions were answered again today Time with Patient: Less than 30
[2021-10-13] MEDS: PANTOPRAZOLE 40 MG/10 ML VIAL IVP SCH ×3 (00:03→21:11)
[2021-10-13] MEDS: AZTREONAM 2 GM in SODIUM CHLORIDE 0.9% 100 ML IVPB SCH ×3 (00:04→16:29)
[2021-10-13] MEDS: VANCOMYCIN 1,750 MG in SODIUM CHLORIDE 0.9% 500 ML 500 ML IVPB SCH ×4 (00:04→21:03)
[2021-10-13] MEDS: DEXTROSE 5%-0.45% NACL 1,000 ML IV SCH ×4 (00:08→21:10)
[2021-10-13] MEDS: LEVOTHYROXINE 100 MCG TAB PO SCH (06:05)
[2021-10-13] MEDS ORDERED: LORazepam 1 MG TAB PO STA (06:12)
[2021-10-13] MEDS ORDERED: VANCOMYCIN TROUGH DUE 1 EACH MISC MISCELLANE ONE (07:00)
[2021-10-13 07:11] LABS: African American GFR (CKD) >90 (>60 ml/min/1.73 sqM); Non-African American GFR(CKD) >90 (>60 ml/min/1.73 sqM)
[2021-10-13] MEDS ORDERED: polyethylene glycoL 3350 17 GM POWD.PACK PO PRN (07:35)
[2021-10-13] MEDS ORDERED: bisacodyL 10 MG SUPP RECTAL PRN (07:36)
[2021-10-13] MEDS: SYMBICORT 80-4.5 MCG INHALER INHALATION SCH ×2 (07:44→20:02)
[2021-10-13] MEDS: SERTRALINE 100 MG TAB PO SCH (08:40)
[2021-10-13] MEDS: atenoloL 25 MG TAB PO SCH ×2 (08:40→21:10)
[2021-10-13] MEDS: SENNOSIDES-DOCUSATE SODIUM 1 EACH TAB PO SCH (08:41)
[2021-10-13] MEDS: MULTIVITAMINS, THERA 1 EACH TAB PO SCH (08:41)
--- NOTE | 2021-10-13 09:49 | P.PN ---
Subjective Progress Note Date: 10/13/21 Principal diagnosis: AMS, cellulitis, nausea and vomiting This is a 66-year-old patient with a past medical history of asthma, GERD, hypertension, hyperlipidemia, hypothyroid, and receiving palliative treatment for metastatic esophageal adenocarcinoma. Patient presented to the on 10/09/21 with concerns for dehydration and altered mental status. Patient had a PEG tuce placed 1 week ago. The next day patient noticed to have a redness around the PEG tube site and started looking worse. It was read [place]. The patient has not been eating and drinking. Patient was advised to come the emergency department by Dr. Huff's office. Patient does have metastatic esophageal canc er. Patient does have associated brain lesions. Patient has undergone radiation to the brain as well as a couple doses of chemotherapy. Confusion has been waxing and waning. 10/12 Met with patient's , Louise, and her son. Education provided on the patient's condition, his disease process, and prognosis. Louise states that she was told that he only has approximately 3 weeks to live. She said his cancer treatment were palliative. They have had several discussions in the past about end of life wishes. The patient wishes to comfortably and peacefully in his own home. She states his mental status has improved since starting on antibiotics and having his abscess drained. She would like to continue his course of antibiotics, then take him home. Louise stated she would like the patient to continue tube feeding via his peg tube upon discharge. It was explained that hospice would continue tube feeding until he no longer tolerates it. At that point they would stop it. Hospice philosophies and support services explained to Louise. She agreed to an informational meeting. Objective - Vital Signs Vital signs: Vital Signs Temp 97.8 F 10/13/21 05:00 Pulse 67 10/13/21 05:00 Resp 16 10/13/21 05:00 BP 138/78 10/13/21 05:00 Pulse Ox 97 10/13/21 05:00 Intake & Output 10/12/21 10/13/21 10/13/21 18:59 06:59 18:59 Output Total 650 Balance -650 Weight 111 kg 111.1 kg Output: Urine 650 Other: Voiding Method Urinal Urinal - Exam General: Patient awake alert restless, fidgiting and slightly confused. HEENT: Head is atraumatic, normocephalic Neck is supple. Sclerae are clear. Pupils equal, round and reactive to light bilaterally. CV: Heart regular in rate and rhythm positive S1 and S2. No S3. No S4. No clicks, rubs or murmurs. No JVD. +1 Peripheral pulses Lungs: Scattered rhonchi throughout, slight inspiratory wheeze. + productive cough with thick white sputum, Respirations even and slightly labored, No intercostal retractions. Abdomen/GI: Firm, protuberant. Hypoactive Bowel sounds present.. Mild abdominal tenderness. : external catheter in place Musculoskeletal/ Extremities: No tenderness on muscular exam. No ecchymosis. Vascular: Radial pulses equal. +2, + 1 lower extremity edema Skin: No rash. redness noted to abdomen Neurologic: No focal deficits noted Psychiatric: .Flat affect, very restless - Labs CBC & Chem 7: 10/12/21 05:48 10/13/21 06:34 Labs: Abnormal Lab Results - Last 24 Hours (Table) 10/13/21 10/13/21 Range/Units 06:34 06:34 Creatinine 0.52 L (0.66-1.25) mg/dL Vancomycin Trough 30.6 H* ug/mL Microbiology - Last 24 Hours (Table) 10/09/21 17:41 Blood Culture - Preliminary Blood No Growth after 72 hours 10/09/21 17:57 Blood Culture - Preliminary Blood No Growth after 72 hours 10/11/21 16:50 Blood Culture - Preliminary Blood No Growth after 24 hours Assessment and Plan Assessment: Symptoms * Pain - 0/10, Continue Morphine and Tylenol prn * Fatigue - + weakness, fatigue, and lethargic * SOB - yes, even at rest, Continue Albuterol neb, Pulmicort, Symbicort, and Morphine prn * Insomnia - lately he has been increasingly more confused, agitated, and restless at night. Recommend starting Haldol or Seroquel * N/V - none currently, continue Zofran prn * Anxiety - denies, continue Zoloft * Depression - denies, continue Zoloft * Confusion - Mentation has waxed and waned, currently confused and fidgiting * Agitation - increasing at night - Recommend Haldol or Seroquel * Hallucinations - none * Appetite/weight loss/nutrition - has a good appetite, tells his he is hungry, ate breakfast today, continue MVI and niacin, start TF via peg when cleared by surgery * Dysphagia - yes d/t esophageal cancer and chemo/radiation * Constipation - Yes, Start Senolot -S daily, Miralax and Dulcolax suppository prn * Incontinence - No, currently has an external catheter in place * Itch - none Plan: Summary/Goals - Louise states she stayed overnight and the patient had a rough night. He was very restless, agitated, and pulling out his IV's. She admits he get this way when he is at home at night, but never this bad. She stated they gave him Morphine and Ativan and it did not help. His is also concerned that he has not had a bowel movement in several days. She thinks that this may be causing him to be uncomfortable and adding to his agitation. She is currently waiting for other family members to come to the hospital so she can go home and shower and sleep for a while. She stated she asked staff if there were any patient safety sitters available and was told there are not. [employer] offered to sit with patient until family can come relieve her. She agreed to call [employer] if she needs relief. Tube feeding still on hold at this point. Patient able to eat a good portion of his breakfast tray. Plan/Recommendations - Consider adding Haldol or Seroquel at night for agitation. Senokot-S daily, Miralax and Ducolax suppository added PRN. Discharge home with hospice services. Advanced Directives - Yes, Louise DPOA Code Status - DNR Anahy Veliz [facility] Palliative Care [facility] [id number] Email: [email or web address] Time with Patient: Less than 30
--- NOTE | 2021-10-13 16:26 | P.PN ---
Subjective Progress Note Date: 10/13/21 Principal diagnosis: Fever abdominal wall cellulitis Patient is a 66-year-old male with a past medical history significant for metastatic esophageal cancer with a recent PEG tube placement presenting to the hospital with a fever abdominal wall cellulitis. On today's evaluation that is 10/13/2021, the patient remains to be afebrile, the patient is better breathing comfortably on room air, the patient denies having any chest pain shortness of breath or cough or abdominal discomfort and redness has slightly decreased Objective - Vital Signs Vital signs: Vital Signs Temp 98.1 F 10/13/21 12:16 Pulse 70 10/13/21 12:16 Resp 16 10/13/21 05:00 BP 152/72 10/13/21 12:16 Pulse Ox 94 L 10/13/21 12:16 Intake & Output 10/12/21 10/13/21 10/13/21 18:59 06:59 18:59 Output Total 650 900 Balance -650 -900 Weight 111 kg 111.1 kg Output: Urine 650 900 Other: Voiding Method Urinal Urinal External Catheter - Exam GENERAL DESCRIPTION: An elderly male lying in bed in no distress RESPIRATORY SYSTEM: Unlabored breathing , decreased breath sounds at bases HEART: S1 S2 regular rate and rhythm , ABDOMEN: Soft , abdominal wall swelling redness has slightly decreased EXTREMITIES: No edema feet - Labs CBC & Chem 7: 10/12/21 05:48 10/13/21 06:34 Labs: Abnormal Lab Results - Last 24 Hours (Table) 10/13/21 10/13/21 Range/Units 06:34 06:34 Creatinine 0.52 L (0.66-1.25) mg/dL Vancomycin Trough 30.6 H* ug/mL Microbiology - Last 24 Hours (Table) 10/09/21 17:41 Blood Culture - Preliminary Blood No Growth after 72 hours 10/09/21 17:57 Blood Culture - Preliminary Blood No Growth after 72 hours 10/11/21 16:50 Blood Culture - Preliminary Blood No Growth after 24 hours Assessment and Plan (1) Cellulitis Current Visit: Yes Status: Acute Priority: High Code(s): L03.90 - CELLULITIS, UNSPECIFIED SNOMED Code(s): 080858366 Plan: 1patient with a fever and this patient presented to hospital with mental status changes patient did have a history of metastatic esophageal cancer with recent PEG tube placement and did have evidence of abdominal wall cellulitis around his PEG tube site will need to cover for gram-positive skin jaylan to be the likely pathogen however underlying gram-negative infection not entirely excluded. 2patient with multiple antibiotic allergies that would limit the number of antibiotics safe to use. 3 CT abdominal pelvis did not show any abdominal wall abscess 4 patient has shown some clinical improvement with resolution of the fever patient to continue with vancomycin pharmacy to dose along with Azactam 2 g every 8 hours while waiting for the cultures to be finalize Time with Patient: Less than 30
--- NOTE | 2021-10-13 19:21 | P.PN ---
Progress Note - Text Progress Note Date: 10/13/21 Chief Complaint: Altered mental status This is a 66-year-old patient who follows with Dr. Contreras. Chronic stable medical conditions include asthma, GERD, hypertension, hyperlipidemia, hypothyroid. History is obtained by the at the bedside. Patient was diagnosed with metastatic esophageal cancer in July 2021. Being followed by Dr. Huff oncologist. Found to have brain metastasis. She has received 10 brain radiation treatments and advanced to chemotherapy is done. Last one being 2 weeks ago. About 5 days ago patient had a PEG tube placed by Dr. lara. The next day patient noticed to have a redness around the PEG tube site and started looking worse. It was read [place]. Patient does able to take some liquids by mouth. Patient normally has a bowel movement every day but S had no bowel movement for last 3 days. Have a fever yesterday. Patient been using a walker for last 2 weeks. Has been becoming confused. Patient had a MRI about 10 years ago. Showed some improvement. Patient was brought in because of increasing confusion waxing and waning mental status. Decreased oral intake. No pain reported. Patient's Louise is the DP OA. Admitted with sepsis, source felt to be PEG tube site possible abscess cellulitis. Acute delirium. October 11: Clindamycin discontinued. Started on IV aztreonam and vancomycin per ID. Patient draining more from the PEG tube site. Computed tomography scan of the abdomen ordered. Discussed with the and daughter the bedside. Patient able to answer simple questions today. Tired. Spiking fevers October 5: Significant amount of pus was squeezed out by Dr. lara at the bedside yesterday. Dressing in place. Local pus discharge present. Patient on clear liquid. at the bedside. No fever today. Diet being advanced by surgery. October 6: at the bedside. Very delirious last night and this morning. Had to be given Ativan. Sleepy this morning. Son is present. Did eat some food. White count still high. IV antibiotics. Tired Active Medications Acetaminophen (Acetaminophen Tab 500 Mg Tab) 500 mg PO Q6HR PRN PRN Reason: Fever and/ or Pain Last Admin: 10/11/21 11:15 Dose: 500 mg Documented by: Albuterol Sulfate (Albuterol Nebulized 2.5 Mg/3 Ml) 2.5 mg INHALATION RT-Q6H PRN PRN Reason: Shortness Of Breath Last Admin: 10/11/21 23:20 Dose: 2.5 mg Documented by: Atenolol (Atenolol 25 Mg Tab) 25 mg PO BID [facility] Last Admin: 10/13/21 08:40 Dose: 25 mg Documented by: Bisacodyl (Bisacodyl 10 Mg Supp) 10 mg RECTAL DAILY PRN PRN Reason: Constipation Budesonide (Budesonide 0.25 Mg/2 Ml Nebu) 0.25 mg INHALATION RT-BID PRN PRN Reason: Shortness Of Breath Budesonide/Formoterol Fumarate (Symbicort 80-4.5 Mcg Inhaler) 2 puff INHALATION RT-BID [facility] Last Admin: 10/13/21 07:44 Dose: 2 puff Documented by: Dextrose/Sodium Chloride (Dextrose 5%-1/2ns Iv Soln) 1,000 mls @ 125 mls/hr IV .Q8H [facility] Last Admin: 10/13/21 08:41 Dose: 125 mls/hr Documented by: Aztreonam 2 gm/ Sodium (Chloride) 100 mls @ 33.3 mls/hr IVPB Q8HR [facility]; Protocol Last Admin: 10/13/21 16:29 Dose: 33.3 mls/hr Documented by: Vancomycin HCl 1,750 mg/ (Sodium Chloride) 500 mls @ 167 mls/hr IVPB Q8H [facility] Last Admin: 10/13/21 12:26 Dose: 167 mls/hr Documented by: Levothyroxine Sodium (Levothyroxine 100 Mcg Tab) 100 mcg PO DAILY@0630 [facility] Last Admin: 10/13/21 06:05 Dose: 100 mcg Documented by: Miscellaneous Information (Vancomycin Trough Due 1 Each Misc) 0 each MISCELLANE DIRECTED ONE Stop: 10/14/21 11:01 Morphine Sulfate (Morphine Sulfate 4 Mg/Ml Syringe) 4 mg IV Q4HR PRN PRN Reason: Severe Pain Last Admin: 10/12/21 19:45 Dose: 4 mg Documented by: Multivitamins (Multivitamins, Thera 1 Each Tab) 1 each PO DAILY [facility] Last Admin: 10/13/21 08:41 Dose: 1 each Documented by: Naloxone HCl (Naloxone 0.4 Mg/Ml 1 Ml Vial) 0.2 mg IV Q2M PRN PRN Reason: Opioid Reversal Niacin (Niacin Tr 500 Mg Caplet) 1,000 mg PO HS [facility] Last Admin: 10/12/21 21:35 Dose: Not Given Documented by: Ondansetron HCl (Ondansetron 4 Mg/2 Ml Vial) 4 mg IVP Q4HR PRN PRN Reason: Nausea And Vomiting Last Admin: 10/11/21 10:44 Dose: 4 mg Documented by: Pantoprazole Sodium (Pantoprazole 40 Mg/10 Ml Vial) 40 mg IVP BID [facility] Last Admin: 10/13/21 08:40 Dose: 40 mg Documented by: Polyethylene Glycol (Polyethylene Glycol 3350 17 Gm Powd.Pack) 17 gm PO DAILY PRN PRN Reason: Constipation Senna/Docusate Sodium (Sennosides-Docusate Sodium 1 Each Tab) 2 each PO DAILY [facility] Last Admin: 10/13/21 08:41 Dose: 2 each Documented by: Sertraline HCl (Sertraline 100 Mg Tab) 150 mg PO DAILY [facility] Last Admin: 10/13/21 08:40 Dose: 150 mg Documented by: Past medical history to include: Asthma, GERD, hyperlipidemia, essential hypertension, hypothyroid, esophageal cancer with brain metastases has had 10 and radiation treatment in 2 doses of chemotherapy, dysphagia, PEG tube, esophageal varices, vitamin D deficiency, benign pituitary tumor with surgery, COVID in April 2021. Social history: . Does have a walker Wheelchair. Heavy drinker until 1997. No smoking. Family history: Father had bladder cancer. Physical examination: VITAL SIGNS: 98.1, 70, 16, 152/72, 94% room air GENERAL: Reclining in bed, sleepy EYES: Pupils equal. Conjunctiva normal. HEENT: External appearance of nose and ears normal, oral cavity dry. NECK: JVD not raised; masses not palpable. HEART: First and second heart sounds are normal; no edema. LUNGS: Respiratory rate normal; decreased breath sounds. ABDOMEN: Soft, dressing over the PEG tube site, Localized redness, liver spleen not palpable, no masses palpable. PSYCH: Sleepy MUSCULOSKELETAL:No Clubbing/cyanosis;muscles-grossly intact INVESTIGATIONS, reviewed in the clinical context: October 12: White count 30 hemoglobin 9.1 sodium 1:30 potassium 3.7 creatinine 0.58 Computed tomography scan chest abdomen pelvis: Area of inflammation swelling around PEG tube site. Localized abscess possible. October 4: White count 34 hemoglobin 9.4 potassium 3.5 creatinine 0.57 White count 39.7 hemoglobin 10.3 platelets 204 sodium 133 potassium 4.2 creatinine 0.7 AST 41 ALT 56 alkaline phosphatase 224 albumin 3.3 UA positive for protein 1+ Computed tomography scan of the brain: Fullness of the pituitary.. X-ray abdomen 1 view: PEG tube. Nonspecific nonobstructive bowel gas pattern. Chest x-ray film personally reviewed by me-no obvious infiltrate Assessment and plan: -Localized abscess cellulitis at the PEG tube site.: Slow to respond IV aztreonam, IV vancomycin. Pus was drained by squeezing around the PEG tube site by surgery. -Sepsis from above: Slow to respond IV fluids. IV aztreonam vancomycin -Metastatic esophageal cancer being followed by Dr. Huff diagnosed in July 2021. Patient has received 10 radiation treatment of the brain and has had 2 cycles of chemotherapy loss and being about 10 days ago. -Mild protein calorie malnutrition from decreased oral intake -Malfunctioning PEG tube. Since started using the PEG tube he's been throwing up the gastric contents. Follow with Dr. lara -Moderate persistent asthma DuoNeb 3 times a day -Hypothyroid Synthroid 100 g a day -GERD Prilosec 20 mg daily -Depression Zoloft 150 mg a day -Essential hypertension Tenormin 25 mg twice a day -Hyperlipidemia Currently hold off patient's Lopid and Mevacor given elevated liver enzymes. -Mild hepatitis likely from chemotherapy. Follow LFTs -Acute metabolic encephalopathy with delirium from underlying sepsis: Not improving IV fluids, -Louise, /DP OA Continue IV aztreonam and IV vancomycin. Cultures pending. Tolerating some diet. Discussed length with the and son at the bedside. Prognosis guarded. Diet as tolerated. Follow labs
[2021-10-13] MEDS: MORPHINE SULFATE 4 MG/ML SYRINGE IV PRN (19:23)
--- NOTE | 2021-10-13 20:41 | P.PN ---
Subjective Progress Note Date: 10/13/21 Plan for hospice care Objective - Vital Signs Vital signs: Vital Signs Temp 98.1 F 10/13/21 12:16 Pulse 70 10/13/21 12:16 Resp 16 10/13/21 05:00 BP 152/72 10/13/21 12:16 Pulse Ox 94 L 10/13/21 12:16 Intake & Output 10/12/21 10/13/21 10/13/21 18:59 06:59 18:59 Output Total 650 900 Balance -650 -900 Weight 111 kg 111.1 kg Output: Urine 650 900 Other: Voiding Method Urinal Urinal External Catheter - Exam - Constitutional General appearance: Present: cooperative, no acute distress, obese - EENT Eyes: Present: anicteric sclerae, EOMI ENT: Present: hearing grossly normal - Respiratory Respiratory: bilateral: CTA - Cardiovascular Rhythm: regular Heart sounds: normal: S1, S2 Abnormal Heart Sounds: Absent: systolic murmur, diastolic murmur, rub, S3 Gallop, S4 Gallop, click, other - Peripheral edema leg Peripheral Edema: bilateral: Trace - Gastrointestinal Gastrointestinal Comment(s): redness and warmth of the abd is improved General gastrointestinal: Present: soft - Integumentary Integumentary: Present: normal - Neurologic Neurologic: Present: CNII-XII intact (grossly) - Musculoskeletal Musculoskeletal: Present: generalized weakness - Psychiatric Psychiatric: Present: A&O x's 3, appropriate affect, intact judgment & insight - Labs CBC & Chem 7: 10/12/21 05:48 10/13/21 06:34 Labs: Abnormal Lab Results - Last 24 Hours (Table) 10/13/21 10/13/21 Range/Units 06:34 06:34 Creatinine 0.52 L (0.66-1.25) mg/dL Vancomycin Trough 30.6 H* ug/mL Microbiology - Last 24 Hours (Table) 10/09/21 17:41 Blood Culture - Preliminary Blood No Growth after 72 hours 10/09/21 17:57 Blood Culture - Preliminary Blood No Growth after 72 hours 10/11/21 16:50 Blood Culture - Preliminary Blood No Growth after 24 hours Assessment and Plan Plan: Assessment and Plan (1) Chemotherapy induced nausea and vomiting Current Visit: Yes Status: Acute Priority: High Code(s): R11.2 - NAUSEA WITH VOMITING, UNSPECIFIED; T45.1X5A - ADVERSE EFFECT OF ANTINEOPLASTIC AND IMMUNOSUP DRUGS, INIT SNOMED Code(s): 59060261 (2) Esophageal adenocarcinoma Current Visit: Yes Status: Acute Priority: High Code(s): C15.9 - MALIGNANT NEOPLASM OF ESOPHAGUS, UNSPECIFIED SNOMED Code(s): 347479348 (3) Altered mental status Current Visit: Yes Status: Acute Priority: High Code(s): R41.82 - ALTERED MENTAL STATUS, UNSPECIFIED SNOMED Code(s): 091568267 (4) Cellulitis Current Visit: Yes Status: Acute Priority: High Code(s): L03.90 - CELLULITIS, UNSPECIFIED SNOMED Code(s): 098959346 Plan: ADischarge to the care of family with hospice support as soon as pt and family ready Patient and family questions answered
[2021-10-13] MEDS: NIACIN TR 500 MG CAPLET PO SCH (21:10)
[2021-10-13] MEDS: LORazepam 2 MG/ML INJ IV PRN (21:11)
[2021-10-14] MEDS: NIACIN TR 500 MG CAPLET PO SCH ×2 (00:27→20:16)
[2021-10-14] MEDS: AZTREONAM 2 GM in SODIUM CHLORIDE 0.9% 100 ML IVPB SCH ×4 (00:38→23:13)
[2021-10-14] MEDS: LORazepam 2 MG/ML INJ IV PRN ×2 (02:39→23:14)
[2021-10-14] MEDS: MORPHINE SULFATE 4 MG/ML SYRINGE IV PRN ×2 (04:36→20:26)
[2021-10-14] MEDS: VANCOMYCIN 1,750 MG in SODIUM CHLORIDE 0.9% 500 ML 500 ML IVPB SCH ×3 (04:36→23:21)
[2021-10-14] MEDS: LEVOTHYROXINE 100 MCG TAB PO SCH (04:36)
[2021-10-14] MEDS: DEXTROSE 5%-0.45% NACL 1,000 ML IV SCH ×2 (05:35→12:34)
[2021-10-14 07:31] LABS: Anisocytosis Moderate; Basophils # (A) 0.1 k/uL (0-0.2); Basophils % (A) 0 %; Eosinophils % (A) 0 %; HCT 30.9 % (39.0-53.0); HGB 9.5 gm/dL (13.0-17.5); Hypochromasia Slight; Lymphocytes # (A) 1.1 k/uL (1.0-4.8); Lymphocytes % (A) 6 %; MCH 26.3 pg (25.0-35.0); MCHC 30.7 g/dL (31.0-37.0); MCV 85.8 fL (80.0-100.0); Mean Platelet Volume 7.5; Monocytes # (A) 0.5 k/uL (0-1.0); Monocytes % (A) 3 %; Neutrophils # (A) 16.5 k/uL (1.3-7.7); Neutrophils % (A) 90 %; Platelet Count 249 k/uL (150-450); RDW 21.3 % (11.5-15.5); WBC 18.4 k/uL (3.8-10.6)
[2021-10-14] MEDS: SYMBICORT 80-4.5 MCG INHALER INHALATION SCH ×2 (07:36→19:42)
[2021-10-14 07:40] LABS: African American GFR (CKD) >90 (>60 ml/min/1.73 sqM); Anion Gap 8 mmol/L; Blood Urea Nitrogen 3 mg/dL (9-20); Carbon Dioxide 24 mmol/L (22-30); Chloride 104 mmol/L (98-107); Glucose 86 mg/dL (74-99); Non-African American GFR(CKD) >90 (>60 ml/min/1.73 sqM); Potassium 3.5 mmol/L (3.5-5.1); Sodium 136 mmol/L (137-145)
[2021-10-14] MEDS: SENNOSIDES-DOCUSATE SODIUM 1 EACH TAB PO SCH (08:28)
[2021-10-14] MEDS: MULTIVITAMINS, THERA 1 EACH TAB PO SCH (08:28)
[2021-10-14] MEDS: SERTRALINE 100 MG TAB PO SCH (08:49)
[2021-10-14] MEDS: atenoloL 25 MG TAB PO SCH ×2 (08:49→20:25)
[2021-10-14] MEDS: PANTOPRAZOLE 40 MG/10 ML VIAL IVP SCH ×2 (08:50→20:25)
[2021-10-14] MEDS ORDERED: VANCOMYCIN TROUGH DUE 1 EACH MISC MISCELLANE ONE (11:00)
--- NOTE | 2021-10-14 12:05 | P.PN ---
Progress Note - Text Progress Note Date: 10/14/21 Chief Complaint: Altered mental status This is a 66-year-old patient who follows with Dr. Contreras. Chronic stable medical conditions include asthma, GERD, hypertension, hyperlipidemia, hypothyroid. History is obtained by the at the bedside. Patient was diagnosed with metastatic esophageal cancer in July 2021. Being followed by Dr. Huff oncologist. Found to have brain metastasis. She has received 10 brain radiation treatments and advanced to chemotherapy is done. Last one being 2 weeks ago. About 5 days ago patient had a PEG tube placed by Dr. lara. The next day patient noticed to have a redness around the PEG tube site and started looking worse. It was read [place]. Patient does able to take some liquids by mouth. Patient normally has a bowel movement every day but S had no bowel movement for last 3 days. Have a fever yesterday. Patient been using a walker for last 2 weeks. Has been becoming confused. Patient had a MRI about 10 years ago. Showed some improvement. Patient was brought in because of increasing confusion waxing and waning mental status. Decreased oral intake. No pain reported. Patient's Louise is the DP OA. Admitted with sepsis, source felt to be PEG tube site possible abscess cellulitis. Acute delirium. October 11: Clindamycin discontinued. Started on IV aztreonam and vancomycin per ID. Patient draining more from the PEG tube site. Computed tomography scan of the abdomen ordered. Discussed with the and daughter the bedside. Patient able to answer simple questions today. Tired. Spiking fevers October 12: Significant amount of pus was squeezed out by Dr. lara at the bedside yesterday. Dressing in place. Local pus discharge present. Patient on clear liquid. at the bedside. No fever today. Diet being advanced by surgery. October 6: at the bedside. Very delirious last night and this morning. Had to be given Ativan. Sleepy this morning. Son is present. Did eat some food. White count still high. IV antibiotics. Tired October 7: Patient was delirious last night this morning. Received Ativan. Did eat some more. Breakfast. at the bedside. Discussed at length. Getting IV vancomycin. IV aztreonam. We will order Risperdal at night. Scheduled. Plan is for patient to go home with hospice. Questions answered. Active Medications Acetaminophen (Acetaminophen Tab 500 Mg Tab) 500 mg PO Q6HR PRN PRN Reason: Fever and/ or Pain Last Admin: 10/11/21 11:15 Dose: 500 mg Documented by: Albuterol Sulfate (Albuterol Nebulized 2.5 Mg/3 Ml) 2.5 mg INHALATION RT-Q6H PRN PRN Reason: Shortness Of Breath Last Admin: 10/11/21 23:20 Dose: 2.5 mg Documented by: Atenolol (Atenolol 25 Mg Tab) 25 mg PO BID [facility] Last Admin: 10/14/21 08:49 Dose: 25 mg Documented by: Bisacodyl (Bisacodyl 10 Mg Supp) 10 mg RECTAL DAILY PRN PRN Reason: Constipation Budesonide (Budesonide 0.25 Mg/2 Ml Nebu) 0.25 mg INHALATION RT-BID PRN PRN Reason: Shortness Of Breath Budesonide/Formoterol Fumarate (Symbicort 80-4.5 Mcg Inhaler) 2 puff INHALATION RT-BID [facility] Last Admin: 10/14/21 07:36 Dose: 2 puff Documented by: Dextrose/Sodium Chloride (Dextrose 5%-1/2ns Iv Soln) 1,000 mls @ 125 mls/hr IV .Q8H [facility] Last Admin: 10/14/21 05:35 Dose: Not Given Documented by: Aztreonam 2 gm/ Sodium (Chloride) 100 mls @ 33.3 mls/hr IVPB Q8HR [facility]; Protocol Last Admin: 10/14/21 08:50 Dose: 33.3 mls/hr Documented by: Vancomycin HCl 1,750 mg/ (Sodium Chloride) 500 mls @ 167 mls/hr IVPB Q8H [facility] Last Admin: 10/14/21 04:36 Dose: 167 mls/hr Documented by: Levothyroxine Sodium (Levothyroxine 100 Mcg Tab) 100 mcg PO DAILY@0630 [facility] Last Admin: 10/14/21 04:36 Dose: 100 mcg Documented by: Lorazepam (Lorazepam 2 Mg/Ml Inj) 1 mg IV Q6HR PRN PRN Reason: Agitation Last Admin: 10/14/21 02:39 Dose: 1 mg Documented by: Morphine Sulfate (Morphine Sulfate 4 Mg/Ml Syringe) 4 mg IV Q4HR PRN PRN Reason: Severe Pain Last Admin: 10/14/21 04:36 Dose: 4 mg Documented by: Multivitamins (Multivitamins, Thera 1 Each Tab) 1 each PO DAILY [facility] Last Admin: 10/14/21 08:28 Dose: Not Given Documented by: Naloxone HCl (Naloxone 0.4 Mg/Ml 1 Ml Vial) 0.2 mg IV Q2M PRN PRN Reason: Opioid Reversal Niacin (Niacin Tr 500 Mg Caplet) 1,000 mg PO HS [facility] Last Admin: 10/14/21 00:27 Dose: Not Given Documented by: Ondansetron HCl (Ondansetron 4 Mg/2 Ml Vial) 4 mg IVP Q4HR PRN PRN Reason: Nausea And Vomiting Last Admin: 10/11/21 10:44 Dose: 4 mg Documented by: Pantoprazole Sodium (Pantoprazole 40 Mg/10 Ml Vial) 40 mg IVP BID [facility] Last Admin: 10/14/21 08:50 Dose: 40 mg Documented by: Polyethylene Glycol (Polyethylene Glycol 3350 17 Gm Powd.Pack) 17 gm PO DAILY PRN PRN Reason: Constipation Senna/Docusate Sodium (Sennosides-Docusate Sodium 1 Each Tab) 2 each PO DAILY [facility] Last Admin: 10/14/21 08:28 Dose: Not Given Documented by: Sertraline HCl (Sertraline 100 Mg Tab) 150 mg PO DAILY [facility] Last Admin: 10/14/21 08:49 Dose: 150 mg Documented by: Past medical history to include: Asthma, GERD, hyperlipidemia, essential hypertension, hypothyroid, esophageal cancer with brain metastases has had 10 and radiation treatment in 2 doses of chemotherapy, dysphagia, PEG tube, esophageal varices, vitamin D deficiency, benign pituitary tumor with surgery, COVID in April 2021. Social history: . Does have a walker Wheelchair. Heavy drinker until 1997. No smoking. Family history: Father had bladder cancer. Physical examination: VITAL SIGNS: 98, 72, 18, 143/67, 94% room air GENERAL: Reclining in bed, lethargic but arousable EYES: Pupils equal. Conjunctiva normal. HEENT: External appearance of nose and ears normal, oral cavity dry. NECK: JVD not raised; masses not palpable. HEART: First and second heart sounds are normal; no edema. LUNGS: Respiratory rate normal; decreased breath sounds. ABDOMEN: Soft, dressing over the PEG tube site, Localized redness, liver spleen not palpable, no masses palpable. PSYCH: Lethargic but arousable MUSCULOSKELETAL:No Clubbing/cyanosis;muscles-grossly intact INVESTIGATIONS, reviewed in the clinical context: October 14: White count 18.4 hemoglobin 9.5 potassium 3.5 crit 0.59 Abdominal wound: Staff for years, beta hemolytic strep group C, alphahemolytic streptococcus October 12: White count 30 hemoglobin 9.1 sodium 1:30 potassium 3.7 creatinine 0.58 Computed tomography scan chest abdomen pelvis: Area of inflammation swelling around PEG tube site. Localized abscess possible. October 11: White count 34 hemoglobin 9.4 potassium 3.5 creatinine 0.57 White count 39.7 hemoglobin 10.3 platelets 204 sodium 133 potassium 4.2 creatinine 0.7 AST 41 ALT 56 alkaline phosphatase 224 albumin 3.3 UA positive for protein 1+ Computed tomography scan of the brain: Fullness of the pituitary.. X-ray abdomen 1 view: PEG tube. Nonspecific nonobstructive bowel gas pattern. Chest x-ray film personally reviewed by me-no obvious infiltrate Assessment and plan: -Localized abscess cellulitis at the PEG tube site.: Slow to respond IV aztreonam, IV vancomycin. Pus was drained by squeezing around the PEG tube site by surgery. Cultures growing multiple organisms -Sepsis from above: Slow to respond IV fluids. IV aztreonam vancomycin -Metastatic esophageal cancer being followed by Dr. Huff diagnosed in July 2021. Patient has received 10 radiation treatment of the brain and has had 2 cycles of chemotherapy loss and being about 10 days ago. -Mild protein calorie malnutrition from decreased oral intake -Malfunctioning PEG tube. Since started using the PEG tube he's been throwing up the gastric contents. Follow with Dr. lara -Moderate persistent asthma DuoNeb 3 times a day -Hypothyroid Synthroid 100 g a day -GERD Prilosec 20 mg daily -Depression Zoloft 150 mg a day -Essential hypertension Tenormin 25 mg twice a day -Hyperlipidemia Currently hold off patient's Lopid and Mevacor given elevated liver enzymes. -Mild hepatitis likely from chemotherapy. Follow LFTs -Acute metabolic encephalopathy with delirium from underlying sepsis: Not improving Add Risperdal 1 mg daily at bedtime -Louise, /DP OA Continue IV aztreonam and IV vancomycin. Cultures pending. Tolerating some diet. Discussed with the at the bedside at length. Including care at home with hospice. Add Risperdal 1 mg at night. She understands prognosis guarded.
[2021-10-14] MEDS: risperiDONE 1 MG TAB PO SCH (20:26)
[2021-10-14] MEDS: ONDANSETRON 4 MG/2 ML VIAL IVP PRN (20:50)
--- NOTE | 2021-10-15 00:36 | P.PN ---
Subjective Progress Note Date: 10/14/21 Principal diagnosis: Fever abdominal wall cellulitis Patient is a 66-year-old male with a past medical history significant for metastatic esophageal cancer with a recent PEG tube placement presenting to the hospital with a fever abdominal wall cellulitis. On today's evaluation that is 10/14/2021, the patient denies any fever or any chills, the patient is better breathing comfortably on room air, the patient denies having any chest pain shortness of breath or cough the patient abdominal discomfort and redness has decreased in intensity and no further drainage Objective - Vital Signs Vital signs: Vital Signs Temp 98.2 F 10/14/21 12:36 Pulse 69 10/14/21 12:36 Resp 24 10/14/21 12:36 BP 152/79 10/14/21 12:36 Pulse Ox 95 10/14/21 12:36 Intake & Output 10/13/21 10/14/21 10/14/21 18:59 06:59 18:59 Output Total 900 Balance -900 Weight 111.1 kg 112 kg Output: Urine 900 Other: Voiding Method External Catheter External Catheter External Catheter - Exam GENERAL DESCRIPTION: An elderly male lying in bed in no distress RESPIRATORY SYSTEM: Unlabored breathing , decreased breath sounds at bases HEART: S1 S2 regular rate and rhythm , ABDOMEN: Soft , abdominal wall swelling redness has slightly decreased EXTREMITIES: No edema feet - Labs CBC & Chem 7: 10/14/21 06:38 10/14/21 06:38 Labs: Abnormal Lab Results - Last 24 Hours (Table) 10/14/21 10/14/21 Range/Units 06:38 06:38 WBC 18.4 H (3.8-10.6) k/uL RBC 3.60 L (4.30-5.90) m/uL Hgb 9.5 L (13.0-17.5) gm/dL Hct 30.9 L (39.0-53.0) % MCHC 30.7 L (31.0-37.0) g/dL RDW 21.3 H (11.5-15.5) % Neutrophils # 16.5 H (1.3-7.7) k/uL Sodium 136 L (137-145) mmol/L BUN 3 L (9-20) mg/dL Creatinine 0.49 L (0.66-1.25) mg/dL Calcium 8.0 L (8.4-10.2) mg/dL Microbiology - Last 24 Hours (Table) 10/11/21 16:22 Gram Stain - Preliminary Abdomen Wound Culture - Preliminary Presumptive Staph aureus Beta Hemolytic Strep Group C Alpha Hemolytic Streptococcus 10/09/21 17:57 Blood Culture - Preliminary Blood No Growth after 96 hours 10/09/21 17:41 Blood Culture - Preliminary Blood No Growth after 96 hours 10/11/21 16:50 Blood Culture - Preliminary Blood No Growth after 48 hours Assessment and Plan (1) Cellulitis Current Visit: Yes Status: Acute Priority: High Code(s): L03.90 - CELLULITIS, UNSPECIFIED SNOMED Code(s): 492892258 Plan: 1patient with a fever and this patient presented to hospital with mental status changes patient did have a history of metastatic esophageal cancer with recent PEG tube placement and did have evidence of abdominal wall cellulitis around his PEG tube site will need to cover for gram-positive skin jaylan to be the likely p athogen however underlying gram-negative infection not entirely excluded. 2patient with multiple antibiotic allergies that would limit the number of antibiotics safe to use. 3 CT abdominal pelvis did not show any abdominal wall abscess 4 patient has shown some clinical improvement with resolution of the fever patient local culture showing predominantly gram-positive he will continue with the vancomycin because of his penicillin cephalosporin ALLERGY and discontinue Azactam Time with Patient: Less than 30
[2021-10-15] MEDS: DEXTROSE 5%-0.45% NACL 1,000 ML IV SCH ×4 (01:27→20:56)
[2021-10-15] MEDS: MORPHINE SULFATE 4 MG/ML SYRINGE IV PRN (02:29)
[2021-10-15] MEDS: LEVOTHYROXINE 100 MCG TAB PO SCH (05:54)
[2021-10-15 06:20] LABS: African American GFR (CKD) >90 (>60 ml/min/1.73 sqM); Non-African American GFR(CKD) >90 (>60 ml/min/1.73 sqM)
[2021-10-15] MEDS: SYMBICORT 80-4.5 MCG INHALER INHALATION SCH ×3 (08:03→19:39)
[2021-10-15] MEDS: MULTIVITAMINS, THERA 1 EACH TAB PO SCH (08:26)
[2021-10-15] MEDS: SENNOSIDES-DOCUSATE SODIUM 1 EACH TAB PO SCH (08:38)
[2021-10-15] MEDS: atenoloL 25 MG TAB PO SCH ×2 (08:38→20:54)
[2021-10-15] MEDS: SERTRALINE 100 MG TAB PO SCH (08:38)
[2021-10-15] MEDS: PANTOPRAZOLE 40 MG/10 ML VIAL IVP SCH ×2 (08:39→20:54)
[2021-10-15] MEDS: VANCOMYCIN 1,750 MG in SODIUM CHLORIDE 0.9% 500 ML 500 ML IVPB SCH ×2 (12:47→23:28)
[2021-10-15] MEDS: LORazepam 2 MG/ML INJ IV PRN ×2 (13:41→21:58)
[2021-10-15] MEDS: ALBUTEROL NEBULIZED 2.5 MG/3 ML INHALATION PRN ×2 (15:27→19:39)
--- NOTE | 2021-10-15 19:51 | P.PN ---
Progress Note - Text Progress Note Date: 10/15/21 Chief Complaint: Altered mental status This is a 66-year-old patient who follows with Dr. Contreras. Chronic stable medical conditions include asthma, GERD, hypertension, hyperlipidemia, hypothyroid. History is obtained by the at the bedside. Patient was diagnosed with metastatic esophageal cancer in July 2021. Being followed by Dr. Huff oncologist. Found to have brain metastasis. She has received 10 brain radiation treatments and advanced to chemotherapy is done. Last one being 2 weeks ago. About 5 days ago patient had a PEG tube placed by Dr. lara. The next day patient noticed to have a redness around the PEG tube site and started looking worse. It was read [place]. Patient does able to take some liquids by mouth. Patient normally has a bowel movement every day but S had no bowel movement for last 3 days. Have a fever yesterday. Patient been using a walker for last 2 weeks. Has been becoming confused. Patient had a MRI about 10 years ago. Showed some improvement. Patient was brought in because of increasing confusion waxing and waning mental status. Decreased oral intake. No pain reported. Patient's Louise is the DP OA. Admitted with sepsis, source felt to be PEG tube site possible abscess cellulitis. Acute delirium. October 11: Clindamycin discontinued. Started on IV aztreonam and vancomycin per ID. Patient draining more from the PEG tube site. Computed tomography scan of the abdomen ordered. Discussed with the and daughter the bedside. Patient able to answer simple questions today. Tired. Spiking fevers October 12: Significant amount of pus was squeezed out by Dr. lara at the bedside yesterday. Dressing in place. Local pus discharge present. Patient on clear liquid. at the bedside. No fever today. Diet being advanced by surgery. October 6: at the bedside. Very delirious last night and this morning. Had to be given Ativan. Sleepy this morning. Son is present. Did eat some food. White count still high. IV antibiotics. Tired October 7: Patient was delirious last night this morning. Received Ativan. Did eat some more. Breakfast. at the bedside. Discussed at length. Getting IV vancomycin. IV aztreonam. We will order Risperdal at night. Scheduled. Plan is for patient to go home with hospice. Questions answered. May 8: Patient did well last night with Risperdal. According to the had the best sleep for a while. Some agitation late in the morning. We'll start the patient on a small dose of Risperdal at the daytime. Tolerating some diet. On IV vancomycin. No fever. Patient able to answer simple questions. Active Medications Acetaminophen (Acetaminophen Tab 500 Mg Tab) 500 mg PO Q6HR PRN PRN Reason: Fever and/ or Pain Last Admin: 10/11/21 11:15 Dose: 500 mg Documented by: Albuterol Sulfate (Albuterol Nebulized 2.5 Mg/3 Ml) 2.5 mg INHALATION RT-Q6H PRN PRN Reason: Shortness Of Breath Last Admin: 10/15/21 19:39 Dose: 2.5 mg Documented by: Atenolol (Atenolol 25 Mg Tab) 25 mg PO BID [facility] Last Admin: 10/15/21 08:38 Dose: 25 mg Documented by: Bisacodyl (Bisacodyl 10 Mg Supp) 10 mg RECTAL DAILY PRN PRN Reason: Constipation Budesonide (Budesonide 0.25 Mg/2 Ml Nebu) 0.25 mg INHALATION RT-BID PRN PRN Reason: Shortness Of Breath Budesonide/Formoterol Fumarate (Symbicort 80-4.5 Mcg Inhaler) 2 puff INHALATION RT-BID [facility] Last Admin: 10/15/21 19:39 Dose: 2 puff Documented by: Dextrose/Sodium Chloride (Dextrose 5%-1/2ns Iv Soln) 1,000 mls @ 125 mls/hr IV .Q8H [facility] Last Admin: 10/15/21 12:43 Dose: Not Given Documented by: Vancomycin HCl 1,750 mg/ (Sodium Chloride) 500 mls @ 167 mls/hr IVPB Q12H [facility] Last Admin: 10/15/21 12:47 Dose: 167 mls/hr Documented by: Levothyroxine Sodium (Levothyroxine 100 Mcg Tab) 100 mcg PO DAILY@0630 [facility] Last Admin: 10/15/21 05:54 Dose: 100 mcg Documented by: Lorazepam (Lorazepam 2 Mg/Ml Inj) 1 mg IV Q6HR PRN PRN Reason: Agitation Last Admin: 10/15/21 13:41 Dose: 1 mg Documented by: Miscellaneous Information (Vancomycin Trough Due 1 Each Misc) 0 each MISCELLANE DIRECTED ONE Stop: 10/16/21 11:01 Morphine Sulfate (Morphine Sulfate 4 Mg/Ml Syringe) 4 mg IV Q4HR PRN PRN Reason: Severe Pain Last Admin: 10/15/21 02:29 Dose: 4 mg Documented by: Multivitamins (Multivitamins, Thera 1 Each Tab) 1 each PO DAILY [facility] Last Admin: 10/15/21 08:26 Dose: Not Given Documented by: Naloxone HCl (Naloxone 0.4 Mg/Ml 1 Ml Vial) 0.2 mg IV Q2M PRN PRN Reason: Opioid Reversal Niacin (Niacin Tr 500 Mg Caplet) 1,000 mg PO HS [facility] Last Admin: 10/14/21 20:16 Dose: Not Given Documented by: Ondansetron HCl (Ondansetron 4 Mg/2 Ml Vial) 4 mg IVP Q4HR PRN PRN Reason: Nausea And Vomiting Last Admin: 10/14/21 20:50 Dose: 4 mg Documented by: Pantoprazole Sodium (Pantoprazole 40 Mg/10 Ml Vial) 40 mg IVP BID [facility] Last Admin: 10/15/21 08:39 Dose: 40 mg Documented by: Polyethylene Glycol (Polyethylene Glycol 3350 17 Gm Powd.Pack) 17 gm PO DAILY PRN PRN Reason: Constipation Risperidone (Risperidone 1 Mg Tab) 1 mg PO [facility] Last Admin: 10/14/21 20:26 Dose: 1 mg Documented by: Senna/Docusate Sodium (Sennosides-Docusate Sodium 1 Each Tab) 2 each PO DAILY [facility] Last Admin: 10/15/21 08:38 Dose: 2 each Documented by: Sertraline HCl (Sertraline 100 Mg Tab) 150 mg PO DAILY [facility] Last Admin: 10/15/21 08:38 Dose: 150 mg Documented by: Past medical history to include: Asthma, GERD, hyperlipidemia, essential hypertension, hypothyroid, esophageal cancer with brain metastases has had 10 and radiation treatment in 2 doses of chemotherapy, dysphagia, PEG tube, esophageal varices, vitamin D deficiency, benign pituitary tumor with surgery, COVID in April 2021. Social history: . Does have a walker Wheelchair. Heavy drinker until 1997. No smoking. Family history: Father had bladder cancer. Physical examination: VITAL SIGNS: 98.1, 69, 22, 161/84, 95% room air GENERAL: Reclining in bed, tired EYES: Pupils equal. Conjunctiva normal. HEENT: External appearance of nose and ears normal, oral cavity dry. NECK: JVD not raised; masses not palpable. HEART: First and second heart sounds are normal; no edema. LUNGS: Respiratory rate normal; decreased breath sounds. ABDOMEN: Soft, dressing over the PEG tube site, Localized redness, liver spleen not palpable, no masses palpable. PSYCH: Answering simple questions MUSCULOSKELETAL:No Clubbing/cyanosis;muscles-grossly intact INVESTIGATIONS, reviewed in the clinical context: October 14: White count 18.4 hemoglobin 9.5 potassium 3.5 crit 0.59 Abdominal wound: Staff for years, beta hemolytic strep group C, alphahemolytic streptococcus October 12: White count 30 hemoglobin 9.1 sodium 1:30 potassium 3.7 creatinine 0.58 Computed tomography scan chest abdomen pelvis: Area of inflammation swelling around PEG tube site. Localized abscess possible. October 11: White count 34 hemoglobin 9.4 potassium 3.5 creatinine 0.57 White count 39.7 hemoglobin 10.3 platelets 204 sodium 133 potassium 4.2 creatinine 0.7 AST 41 ALT 56 alkaline phosphatase 224 albumin 3.3 UA positive for protein 1+ Computed tomography scan of the brain: Fullness of the pituitary.. X-ray abdomen 1 view: PEG tube. Nonspecific nonobstructive bowel gas pattern. Chest x-ray film personally reviewed by me-no obvious infiltrate Assessment and plan: -Localized abscess cellulitis at the PEG tube site.: Slow to respond IV aztreonam, IV vancomycin. Pus was drained by squeezing around the PEG tube site by surgery. Cultures growing multiple organisms -Sepsis from above: Slow to respond IV fluids. IV aztreonam vancomycin -Metastatic esophageal cancer being followed by Dr. Huff diagnosed in July 2021. Patient has received 10 radiation treatment of the brain and has had 2 cycles of chemotherapy loss and being about 10 days ago. -Mild protein calorie malnutrition from decreased oral intake -Malfunctioning PEG tube. Since started using the PEG tube he's been throwing up the gastric contents. Follow with Dr. lara -Moderate persistent asthma DuoNeb 3 times a day -Hypothyroid Synthroid 100 g a day -GERD Prilosec 20 mg daily -Depression Zoloft 150 mg a day -Essential hypertension Tenormin 25 mg twice a day -Hyperlipidemia Currently hold off patient's Lopid and Mevacor given elevated liver enzymes. -Mild hepatitis likely from chemotherapy. Follow LFTs -Acute metabolic encephalopathy with delirium from underlying sepsis: Not improving Risperdal 1 mg daily at bedtime. Add Risperdal 0.25 mg the morning. -DO NOT RESUSCITATE -Louise, /DP OA Continue IV aztreonam and IV vancomycin. Add Risperdal 0.25 mg in the morning. Discuss at the bedside at length with the plan about discharge. Will be in the hospital for at least couple of days currently. She will talk to the welfare case worker and the hospice team. To determine if more help is needed at home. Rhina chairez time spent about 40 minutes with over 25 minutes of discussion.
[2021-10-15] MEDS: risperiDONE 1 MG TAB PO SCH (20:54)
[2021-10-15] MEDS: NIACIN TR 500 MG CAPLET PO SCH (20:54)
[2021-10-16] MEDS: LORazepam 2 MG/ML INJ IV PRN ×3 (03:17→20:43)
[2021-10-16] MEDS: DEXTROSE 5%-0.45% NACL 1,000 ML IV SCH ×2 (04:38→11:53)
[2021-10-16] MEDS: LEVOTHYROXINE 100 MCG TAB PO SCH (05:53)
--- NOTE | 2021-10-16 07:27 | P.PN ---
Subjective Progress Note Date: 10/15/21 Principal diagnosis: Fever abdominal wall cellulitis Patient is a 66-year-old male with a past medical history significant for metastatic esophageal cancer with a recent PEG tube placement presenting to the hospital with a fever abdominal wall cellulitis. On today's evaluation that is 10/15/2021, the patient remains to be afebrile, the patient is breathing comfortably on room air, the patient denies having any chest pain shortness of breath or cough the patient abdominal discomfort and redness has decreased in intensity and no further drainage, overall feeling bet ter Objective - Vital Signs Vital signs: Vital Signs Temp 97.7 F 10/15/21 05:00 Pulse 67 10/15/21 08:40 Resp 18 10/15/21 08:40 BP 151/74 10/15/21 05:00 Pulse Ox 95 10/15/21 05:00 Intake & Output 10/14/21 10/15/21 10/15/21 18:59 06:59 18:59 Output Total 1000 1000 Balance -1000 -1000 Weight 111 kg Output: Urine 1000 1000 Other: Voiding Method External Catheter External Catheter External Catheter # Voids 2 - Exam GENERAL DESCRIPTION: An elderly male lying in bed in no distress RESPIRATORY SYSTEM: Unlabored breathing , decreased breath sounds at bases HEART: S1 S2 regular rate and rhythm , ABDOMEN: Soft , abdominal wall swelling redness has slightly decreased EXTREMITIES: No edema feet - Labs CBC & Chem 7: 10/14/21 06:38 10/15/21 05:26 Labs: Abnormal Lab Results - Last 24 Hours (Table) 10/15/21 Range/Units 05:26 Creatinine 0.43 L (0.66-1.25) mg/dL Microbiology - Last 24 Hours (Table) 10/11/21 16:22 Gram Stain - Final Abdomen Wound Culture - Final Staphylococcus aureus Beta Hemolytic Strep Group C Viridans streptococcus group 10/09/21 17:41 Blood Culture - Preliminary Blood No Growth after 120 hours 10/09/21 17:57 Blood Culture - Preliminary Blood No Growth after 120 hours 10/11/21 16:50 Blood Culture - Preliminary Blood No Growth after 72 hours Assessment and Plan (1) Cellulitis Current Visit: Yes Status: Acute Priority: High Code(s): L03.90 - CELLULITIS, UNSPECIFIED SNOMED Code(s): 921877593 Plan: 1patient with a fever and this patient presented to hospital with mental status changes patient did have a history of metastatic esophageal cancer with recent PEG tube placement and did have evidence of abdominal wall cellulitis around his PEG tube site will need to cover for gram-positive skin jaylan to be the likely pathogen however underlying gram-negative infection not entirely excluded. 2patient with multiple antibiotic allergies that would limit the number of antibiotics safe to use. 3 CT abdominal pelvis did not show any abdominal wall abscess 4 patient has shown some clinical improvement with resolution of the fever patient local culture showing predominantly gram-positive that his MSSA and strep, the patient will continue with the vancomycin because of his penicillin cephalosporin ALLERGY and may benefit from a PICC line and short course of IV antibiotic on discharge Time with Patient: Less than 30
[2021-10-16] MEDS: SYMBICORT 80-4.5 MCG INHALER INHALATION SCH ×2 (07:57→20:02)
--- NOTE | 2021-10-16 10:01 | XR ---
EXAMINATION TYPE: XR KUB portable DATE OF EXAM: 10/16/2021 COMPARISON: NONE HISTORY: PEG tube TECHNIQUE: One view abdominal series FINDINGS: The osseous structures are intact. The bowel gas pattern is nonspecific. Contrast is seen within the PEG tube and within the colon.. IMPRESSION: 1. Contrast within the stomach suggest PEG tube in good position.
[2021-10-16] MEDS: atenoloL 25 MG TAB PO SCH ×2 (10:23→20:32)
[2021-10-16] MEDS: PANTOPRAZOLE 40 MG/10 ML VIAL IVP SCH ×2 (10:23→20:31)
[2021-10-16] MEDS: SERTRALINE 100 MG TAB PO SCH (10:23)
[2021-10-16] MEDS: MULTIVITAMINS, THERA 1 EACH TAB PO SCH (10:23)
[2021-10-16] MEDS: SENNOSIDES-DOCUSATE SODIUM 1 EACH TAB PO SCH (10:23)
[2021-10-16] MEDS ORDERED: bisacodyL 10 MG SUPP RECTAL STA (10:54)
[2021-10-16] MEDS ORDERED: VANCOMYCIN TROUGH DUE 1 EACH MISC MISCELLANE ONE (11:00)
[2021-10-16 11:45] LABS: African American GFR (CKD) >90 (>60 ml/min/1.73 sqM); Non-African American GFR(CKD) >90 (>60 ml/min/1.73 sqM)
[2021-10-16] MEDS: VANCOMYCIN 1,750 MG in SODIUM CHLORIDE 0.9% 500 ML 500 ML IVPB SCH (11:53)
[2021-10-16] MEDS ORDERED: HALOPERIDOL LACTATE 5 MG/ML 1 ML VIAL IVP PRN (12:49)
[2021-10-16] MEDS ORDERED: HALOPERIDOL LACTATE 5 MG/ML 1 ML VIAL IM PRN ×2 (13:10→16:19)
--- NOTE | 2021-10-16 14:24 | P.PN ---
Subjective Progress Note Date: 10/16/21 Principal diagnosis: AMS,cellulitis This is a 66-year-old patient with a past medical history of asthma, GERD, hypertension, hyperlipidemia, hypothyroid, and receiving palliative treatment for metastatic esophageal adenocarcinoma. Patient presented to the on 10/09/21 with concerns for dehydration and altered mental status. Patient had a PEG tuce placed 1 week ago. The next day patient noticed to have a redness around the PEG tube site and started looking worse. It was read [place]. The patient has not been eating and drinking. Patient was advised to come the emergency d epartment by Dr. Huff's office. Patient does have metastatic esophageal cancer. Patient does have associated brain lesions. Patient has undergone radiation to the brain as well as a couple doses of chemotherapy. Confusion has been waxing and waning. 10/12 Met with patient's , Louise, and her son. Education provided on the patient's condition, his disease process, and prognosis. Louise states that she was told that he only has approximately 3 weeks to live. She said his cancer treatment were palliative. They have had several discussions in the past about end of life wishes. The patient wishes to comfortably and peacefully in his own home. She states his mental status has improved since starting on antibiotics and having his abscess drained. She would like to continue his course of antibiotics, then take him home. Louise stated she would like the patient to continue tube feeding via his peg tube upon discharge. It was explained that hospice would continue tube feeding until he no longer tolerates it. At that point they would stop it. Hospice philosophies and support services explained to Louise. She agreed to an informational meeting. 10/13 Louise states she stayed overnight and the patient had a rough night. He was very restless, agitated, and pulling out his IV's. She admits he get this way when he is at home at night, but never this bad. She stated they gave him Morphine and Ativan and it did not help. His is also concerned that he has not had a bowel movement in several days. She thinks that this may be causing him to be uncomfortable and adding to his agitation. She is currently waiting for other family members to come to the hospital so she can go home and shower and sleep for a while. She stated she asked staff if there were any patient safety sitters available and was told there are not. [facility] [employer] offered to sit with patient until family can come relieve her. She agreed to call [facility] if she needs relief. Tube feeding still on hold at this point. Patient able to eat a good portion of his breakfast tray. Objective - Vital Signs Vital signs: Vital Signs Temp 98 F 10/16/21 05:00 Pulse 65 10/16/21 05:00 Resp 16 10/16/21 05:00 BP 174/72 10/16/21 05:00 Pulse Ox 96 10/16/21 05:00 Intake & Output 10/15/21 10/16/21 10/16/21 18:59 06:59 18:59 Intake Total 237 Output Total 1900 1300 Balance -1900 -1063 Weight 110.5 kg Intake: Oral 237 Output: Urine 1900 1300 Other: Voiding Method External Catheter External Catheter External Catheter # Voids 2 - Exam General: Patient awake alert restless, fidgeting and confused, no acute distress HEENT: Head is atraumatic, normocephalic Neck is supple. Sclerae are clear. Pupils equal, round and reactive to light bilaterally. CV: Heart regular in rate and rhythm positive S1 and S2. No S3. No S4. No clicks, rubs or murmurs. No JVD. +1 Peripheral pulses Lungs: DIminished bases bilaterally. Respirations even and unlabored, No intercostal retractions. Currently on RA Abdomen/GI: Soft, protuberant. Hypoactive Bowel sounds present. Mild abdominal tenderness. LBM 10 days ago per : external catheter in place Musculoskeletal/ Extremities: No tenderness on muscular exam. No ecchymosis. Vascular: Radial pulses equal. +2, No peripheral edema Skin: No rash. redness noted to abdomen - improving Neurologic: No focal deficits noted Psychiatric: Flat affect, very restless, answers simple questions - Labs CBC & Chem 7: 10/14/21 06:38 10/16/21 11:02 Labs: Microbiology - Last 24 Hours (Table) 10/09/21 17:41 Blood Culture - Final Blood No Growth after 144 hours 10/09/21 17:57 Blood Culture - Final Blood No Growth after 144 hours 10/11/21 16:50 Blood Culture - Preliminary Blood No Growth after 96 hours Assessment and Plan Assessment: Symptoms * Pain - 0/10, Continue Morphine and Tylenol prn * Fatigue - + weakness and fatigue * SOB - No, Continue Albuterol neb, Pulmicort, Symbicort, and Morphine prn * Insomnia - lately he has been increasingly more confused, agitated, and restless at night. Recommend starting Haldol or Seroquel * N/V - none currently, continue Zofran prn * Anxiety - denies, continue Zoloft * Depression - denies, continue Zoloft * Confusion - Mentation has waxed and waned, currently confused and fidgeting * Agitation - increasing at night - Recommend Haldol or Seroquel * Hallucinations - none * Appetite/weight loss/nutrition - has a good appetite, tells his he is hungry continue MVI and niacin, start TF via peg when cleared by surgery * Dysphagia - yes d/t esophageal cancer and chemo/radiation, Continue Dysphagia II ground diet, ensure and magic cups * Constipation - Yes, states LBM 10 days age. Continue Senokot -S daily, Miralax and Dulcolax suppository prn, added Dulcolax supp X 1 now. * Incontinence - No, currently has an external catheter in place * Itch - none Plan: Summary/Goals - Per the patient's , Louise, the patient was up all night long. He was extremely restless and agitated last night despite the Risperdal. He pulled out his peg tube this morning. At the time of examination, Dr. Rosenbaum was at the bedside and had just put a new peg tube in. He explained to the patient's that because the original peg was put in only a short time ago, it had not had time to heal and he had to put a new peg tube in to prevent the abdominal wall from . Abdominal xray showed it was in good position. Louise also stated that his appetite is up and down. She is able to get him to drink some ensure and eat the magic cups a couple times a day. Waiting for plan on antibiotic course to discharge patient home with hospice. Patient is very restless and continues to fidget and pull out his IV despite family being in the room. Spoke with Dr. Samuel who plans on titrating the Risperdal by adding a morning dose. Plan/Recommendations - Consider adding Haldol prn or Seroquel at night for agitation. Discharge home with hospice services. Advanced Directives - Yes, Louise DPOA Code Status - DNR Anahy Veliz [facility]- Palliative Care [facility] [id number] Email: [email or web address] Time with Patient: Greater than 30
[2021-10-16 16:19] VITALS: BMI 34.0
--- NOTE | 2021-10-16 19:50 | P.PN ---
Progress Note - Text Progress Note Date: 10/16/21 Chief Complaint: Altered mental status This is a 66-year-old patient who follows with Dr. Contreras. Chronic stable medical conditions include asthma, GERD, hypertension, hyperlipidemia, hypothyroid. History is obtained by the at the bedside. Patient was diagnosed with metastatic esophageal cancer in July 2021. Being followed by Dr. Huff oncologist. Found to have brain metastasis. She has received 10 brain radiation treatments and advanced to chemotherapy is done. Last one being 2 weeks ago. About 5 days ago patient had a PEG tube placed by Dr. lara. The next day patient noticed to have a redness around the PEG tube site and started looking worse. It was read [place]. Patient does able to take some liquids by mouth. Patient normally has a bowel movement every day but S had no bowel movement for last 3 days. Have a fever yesterday. Patient been using a walker for last 2 weeks. Has been becoming confused. Patient had a MRI about 10 years ago. Showed some improvement. Patient was brought in because of increasing confusion waxing and waning mental status. Decreased oral intake. No pain reported. Patient's Louise is the DP OA. Admitted with sepsis, source felt to be PEG tube site possible abscess cellulitis. Acute delirium. October 11: Clindamycin discontinued. Started on IV aztreonam and vancomycin per ID. Patient draining more from the PEG tube site. Computed tomography scan of the abdomen ordered. Discussed with the and daughter the bedside. Patient able to answer simple questions today. Tired. Spiking fevers October 12: Significant amount of pus was squeezed out by Dr. lara at the bedside yesterday. Dressing in place. Local pus discharge present. Patient on clear liquid. at the bedside. No fever today. Diet being advanced by surgery. October 6: at the bedside. Very delirious last night and this morning. Had to be given Ativan. Sleepy this morning. Son is present. Did eat some food. White count still high. IV antibiotics. Tired October 7: Patient was delirious last night this morning. Received Ativan. Did eat some more. Breakfast. at the bedside. Discussed at length. Getting IV vancomycin. IV aztreonam. We will order Risperdal at night. Scheduled. Plan is for patient to go home with hospice. Questions answered. October 15: Patient did well last night with Risperdal. According to the had the best sleep for a while. Some agitation late in the morning. We'll start the patient on a small dose of Risperdal at the daytime. Tolerating some diet. On IV vancomycin. No fever. Patient able to answer simple questions. October 16: Patient has rather disrupted night. Most sedated this morning. He did get agitated. We will use Haldol when necessary. We'll continue his evening dose of Risperdal and aunt 0.5 mg tomorrow morning. Sleep hygiene to be maintained. Discussed with the patient's and daughter the bedside. Questions answered. Discussed with the nurse. Patient had pulled out his PEG tube last night. It placed. X-ray from this morning shows PEG tube in the stomach. Active Medications Acetaminophen (Acetaminophen Tab 500 Mg Tab) 500 mg PO Q6HR PRN PRN Reason: Fever and/ or Pain Last Admin: 10/11/21 11:15 Dose: 500 mg Documented by: Albuterol Sulfate (Albuterol Nebulized 2.5 Mg/3 Ml) 2.5 mg INHALATION RT-Q6H PRN PRN Reason: Shortness Of Breath Last Admin: 10/15/21 19:39 Dose: 2.5 mg Documented by: Atenolol (Atenolol 25 Mg Tab) 25 mg PO BID [facility] Last Admin: 10/16/21 10:23 Dose: 25 mg Documented by: Bisacodyl (Bisacodyl 10 Mg Supp) 10 mg RECTAL DAILY PRN PRN Reason: Constipation Budesonide (Budesonide 0.25 Mg/2 Ml Nebu) 0.25 mg INHALATION RT-BID PRN PRN Reason: Shortness Of Breath Budesonide/Formoterol Fumarate (Symbicort 80-4.5 Mcg Inhaler) 2 puff INHALATION RT-BID [facility] Last Admin: 10/16/21 07:57 Dose: 2 puff Documented by: Dextrose/Sodium Chloride (Dextrose 5%-1/2ns Iv Soln) 1,000 mls @ 125 mls/hr IV .Q8H [facility] Last Admin: 10/16/21 11:53 Dose: 125 mls/hr Documented by: Vancomycin HCl 1,750 mg/ (Sodium Chloride) 500 mls @ 167 mls/hr IVPB Q12H [facility] Last Admin: 10/16/21 11:53 Dose: 167 mls/hr Documented by: Levothyroxine Sodium (Levothyroxine 100 Mcg Tab) 100 mcg PO DAILY@0630 [facility] Last Admin: 10/16/21 05:53 Dose: 100 mcg Documented by: Lorazepam (Lorazepam 2 Mg/Ml Inj) 1 mg IV Q6HR PRN PRN Reason: Agitation Last Admin: 10/16/21 11:53 Dose: 1 mg Documented by: Morphine Sulfate (Morphine Sulfate 4 Mg/Ml Syringe) 4 mg IV Q4HR PRN PRN Reason: Severe Pain Last Admin: 10/15/21 02:29 Dose: 4 mg Documented by: Multivitamins (Multivitamins, Thera 1 Each Tab) 1 each PO DAILY [facility] Last Admin: 10/16/21 10:23 Dose: 1 each Documented by: Naloxone HCl (Naloxone 0.4 Mg/Ml 1 Ml Vial) 0.2 mg IV Q2M PRN PRN Reason: Opioid Reversal Niacin (Niacin Tr 500 Mg Caplet) 1,000 mg PO [facility] Last Admin: 10/15/21 20:54 Dose: Not Given Documented by: Ondansetron HCl (Ondansetron 4 Mg/2 Ml Vial) 4 mg IVP Q4HR PRN PRN Reason: Nausea And Vomiting Last Admin: 10/14/21 20:50 Dose: 4 mg Documented by: Pantoprazole Sodium (Pantoprazole 40 Mg/10 Ml Vial) 40 mg IVP BID [facility] Last Admin: 10/16/21 10:23 Dose: 40 mg Documented by: Polyethylene Glycol (Polyethylene Glycol 3350 17 Gm Powd.Pack) 17 gm PO DAILY PRN PRN Reason: Constipation Risperidone (Risperidone 1 Mg Tab) 1 mg PO HS [facility] Last Admin: 10/15/21 20:54 Dose: 1 mg Documented by: Risperidone (Risperidone 0.5 Mg Tab) 0.5 mg PO DAILY [facility] Senna/Docusate Sodium (Sennosides-Docusate Sodium 1 Each Tab) 2 each PO DAILY [facility] Last Admin: 10/16/21 10:23 Dose: 2 each Documented by: Sertraline HCl (Sertraline 100 Mg Tab) 150 mg PO DAILY [facility] Last Admin: 10/16/21 10:23 Dose: 150 mg Documented by: Past medical history to include: Asthma, GERD, hyperlipidemia, essential hypertension, hypothyroid, esophageal cancer with brain metastases has had 10 and radiation treatment in 2 doses of chemotherapy, dysphagia, PEG tube, esophageal varices, vitamin D deficiency, benign pituitary tumor with surgery, COVID in April 2021. Social history: . Does have a walker Wheelchair. Heavy drinker until 1997. No smoking. Family history: Father had bladder cancer. Physical examination: VITAL SIGNS: 98, 65, 16, 174-72, 96% room air GENERAL: Reclining in bed, lethargic but arousable EYES: Pupils equal. Conjunctiva normal. HEENT: External appearance of nose and ears normal, oral cavity dry. NECK: JVD not raised; masses not palpable. HEART: First and second heart sounds are normal; no edema. LUNGS: Respiratory rate normal; decreased breath sounds. ABDOMEN: Soft, dressing over the PEG tube site, Localized redness, liver spleen not palpable, no masses palpable. PSYCH: Difficult to assess MUSCULOSKELETAL:No Clubbing/cyanosis;muscles-grossly intact INVESTIGATIONS, reviewed in the clinical context: October 14: White count 18.4 hemoglobin 9.5 potassium 3.5 crit 0.59 Abdominal wound: Staff for years, beta hemolytic strep group C, alphahemolytic streptococcus October 12: White count 30 hemoglobin 9.1 sodium 1:30 potassium 3.7 creatinine 0.58 Computed tomography scan chest abdomen pelvis: Area of inflammation swelling around PEG tube site. Localized abscess possible. October 11: White count 34 hemoglobin 9.4 potassium 3.5 creatinine 0.57 White count 39.7 hemoglobin 10.3 platelets 204 sodium 133 potassium 4.2 creatinine 0.7 AST 41 ALT 56 alkaline phosphatase 224 albumin 3.3 UA positive for protein 1+ Computed tomography scan of the brain: Fullness of the pituitary.. X-ray abdomen 1 view: PEG tube. Nonspecific nonobstructive bowel gas pattern. Chest x-ray film personally reviewed by me-no obvious infiltrate Assessment and plan: -Localized abscess cellulitis at the PEG tube site.: IV aztreonam, IV vancomycin. Pus was drained by squeezing around the PEG tube site by surgery. Cultures growing multiple organisms -Sepsis from above: IV fluids. IV aztreonam vancomycin -Metastatic esophageal cancer being followed by Dr. Huff diagnosed in July 2021. Patient has received 10 radiation treatment of the brain and has had 2 cycles of chemotherapy loss and being about 10 days ago. -Mild protein calorie malnutrition from decreased oral intake -Malfunctioning PEG tube. Since started using the PEG tube he's been throwing up the gastric contents. PEG tube was pulled up with the patient. Replaced on October 16. -Moderate persistent asthma DuoNeb 3 times a day -Hypothyroid Synthroid 100 g a day -GERD Prilosec 20 mg daily -Depression Zoloft 150 mg a day -Essential hypertension Tenormin 25 mg twice a day -Hyperlipidemia Currently hold off patient's Lopid and Mevacor given elevated liver enzymes. -Mild hepatitis likely from chemotherapy. Follow LFTs -Acute metabolic encephalopathy with delirium from underlying sepsis: Not improving Risperdal 1 mg daily at bedtime. Add Risperdal 0.5 mg the morning. -DO NOT RESUSCITATE -Louise, /DP OA Continue current medications. Discussed at length with the patient's and daughter the morning. Start Risperdal 0.5 mg starting tomorrow morning. Haldol IM when necessary today. Discussed with the nurse. Total time spent today about 45 minutes with over 25 minutes of discussion.
[2021-10-16] MEDS: NIACIN TR 500 MG CAPLET PO SCH (20:32)
[2021-10-16] MEDS: risperiDONE 1 MG TAB PO SCH (20:33)
--- NOTE | 2021-10-16 20:50 | P.PN ---
Subjective Progress Note Date: 10/16/21 Principal diagnosis: Fever abdominal wall cellulitis Patient is a 66-year-old male with a past medical history significant for metastatic esophageal cancer with a recent PEG tube placement presenting to the hospital with a fever abdominal wall cellulitis. On today's evaluation that is 10/16/2021, the patient continues to be afebrile, the patient is breathing comfortably on room air, the patient denies having any chest pain shortness of breath or cough the patient abdominal discomfort and redness has decreased in intensity and no further drainage, patient has pulled out his PEG tube and has to be replaced by the surgeon and has been pulling out his IVs Objective - Vital Signs Vital signs: Vital Signs Temp 98 F 10/16/21 05:00 Pulse 65 10/16/21 05:00 Resp 16 10/16/21 05:00 BP 174/72 10/16/21 05:00 Pulse Ox 96 10/16/21 05:00 Intake & Output 10/15/21 10/16/21 10/16/21 18:59 06:59 18:59 Intake Total 237 Output Total 1900 1300 Balance -1900 -1063 Weight 110.5 kg Intake: Oral 237 Output: Urine 1900 1300 Other: Voiding Method External Catheter External Catheter External Catheter # Voids 2 - Exam GENERAL DESCRIPTION: An elderly male lying in bed in no distress RESPIRATORY SYSTEM: Unlabored breathing , decreased breath sounds at bases HEART: S1 S2 regular rate and rhythm , ABDOMEN: Soft , abdominal wall swelling redness has slightly decreased EXTREMITIES: No edema feet - Labs CBC & Chem 7: 10/14/21 06:38 10/16/21 11:02 Labs: Microbiology - Last 24 Hours (Table) 10/09/21 17:41 Blood Culture - Final Blood No Growth after 144 hours 10/09/21 17:57 Blood Culture - Final Blood No Growth after 144 hours 10/11/21 16:50 Blood Culture - Preliminary Blood No Growth after 96 hours Assessment and Plan (1) Cellulitis Current Visit: Yes Status: Acute Priority: High Code(s): L03.90 - CELLULITIS, UNSPECIFIED SNOMED Code(s): 200960270 Plan: 1patient with a fever and this patient presented to hospital with mental status changes patient did have a history of metastatic esophageal cancer with recent PEG tube placement and did have evidence of abdominal wall cellulitis around his PEG tube site will need to cover for gram-positive skin jaylan to be the likely pathogen however underlying gram-negative infection not entirely excluded. 2patient with multiple antibiotic allergies that would limit the number of antibiotics safe to use. 3 CT abdominal pelvis did not show any abdominal wall abscess 4 patient has shown some clinical improvement with resolution of the fever patient local culture showing predominantly gram-positive that his MSSA and strep, the patient will continue with the vancomycin because of his penicillin cephalosporin ALLERGY, patient seemed to be not an ideal candidate for outpatient IV antibiotic as per discussion with the family. Keeping in mind He has been pulling out his lines, will recommend a short course of oral Levaquin and doxycycline on discharge Time with Patient: Less than 30
[2021-10-16] MEDS ORDERED: HALOPERIDOL LACTATE 5 MG/ML 1 ML VIAL IM ONE (22:39)
[2021-10-17] MEDS: VANCOMYCIN 1,750 MG in SODIUM CHLORIDE 0.9% 500 ML 500 ML IVPB SCH ×3 (00:45→23:45)
[2021-10-17] MEDS: DEXTROSE 5%-0.45% NACL 1,000 ML IV SCH ×3 (00:47→12:59)
[2021-10-17] MEDS: MORPHINE SULFATE 4 MG/ML SYRINGE IV PRN (05:44)
[2021-10-17] MEDS: LEVOTHYROXINE 100 MCG TAB PO SCH (05:46)
[2021-10-17 06:01] LABS: Anisocytosis Moderate; Basophils % (A) 0 %; Eosinophils % (A) 0 %; HCT 31.3 % (39.0-53.0); HGB 9.6 gm/dL (13.0-17.5); Hypochromasia Slight; Lymphocytes # (A) 1.1 k/uL (1.0-4.8); Lymphocytes % (A) 8 %; MCH 26.4 pg (25.0-35.0); MCHC 30.9 g/dL (31.0-37.0); MCV 85.5 fL (80.0-100.0); Mean Platelet Volume 6.8; Microcytosis Slight; Monocytes # (A) 0.5 k/uL (0-1.0); Monocytes % (A) 4 %; Neutrophils # (A) 11.8 k/uL (1.3-7.7); Neutrophils % (A) 87 %; Platelet Count 337 k/uL (150-450); Poikilocytosis Slight; RBC 3.66 m/uL (4.30-5.90); WBC 13.6 k/uL (3.8-10.6)
[2021-10-17 06:10] LABS: African American GFR (CKD) >90 (>60 ml/min/1.73 sqM); Anion Gap 4 mmol/L; Blood Urea Nitrogen 2 mg/dL (9-20); Calcium 7.9 mg/dL (8.4-10.2); Carbon Dioxide 30 mmol/L (22-30); Chloride 102 mmol/L (98-107); Glucose 86 mg/dL (74-99); Non-African American GFR(CKD) >90 (>60 ml/min/1.73 sqM); Potassium 3.1 mmol/L (3.5-5.1); Sodium 136 mmol/L (137-145)
[2021-10-17] MEDS: SYMBICORT 80-4.5 MCG INHALER INHALATION SCH ×3 (08:02→21:33)
[2021-10-17] MEDS: PANTOPRAZOLE 40 MG/10 ML VIAL IVP SCH ×2 (08:19→21:39)
[2021-10-17] MEDS: SERTRALINE 100 MG TAB PO SCH (08:19)
[2021-10-17] MEDS: atenoloL 25 MG TAB PO SCH ×2 (08:20→21:39)
[2021-10-17] MEDS: SENNOSIDES-DOCUSATE SODIUM 1 EACH TAB PO SCH (08:20)
[2021-10-17] MEDS: MULTIVITAMINS, THERA 1 EACH TAB PO SCH (08:20)
[2021-10-17] MEDS ORDERED: risperiDONE 0.5 MG TAB PO SCH (09:00)
--- NOTE | 2021-10-17 09:36 | P.PN ---
Subjective Progress Note Date: 10/17/21 Principal diagnosis: AMS,cellulitis This is a 66-year-old patient with a past medical history of asthma, GERD, hypertension, hyperlipidemia, hypothyroid, and receiving palliative treatment for metastatic esophageal adenocarcinoma. Patient presented to the on 10/09/21 with concerns for dehydration and altered mental status. Patient had a PEG tuce placed 1 week ago. The next day patient noticed to have a redness around the PEG tube site and started looking worse. It was read [place]. The patient has not been eating and drinking. Patient was advised to come the emergency d epartment by Dr. Huff's office. Patient does have metastatic esophageal cancer. Patient does have associated brain lesions. Patient has undergone radiation to the brain as well as a couple doses of chemotherapy. Confusion has been waxing and waning. 10/12 Met with patient's , Louise, and her son. Education provided on the patient's condition, his disease process, and prognosis. Louise states that she was told that he only has approximately 3 weeks to live. She said his cancer treatment were palliative. They have had several discussions in the past about end of life wishes. The patient wishes to comfortably and peacefully in his own home. She states his mental status has improved since starting on antibiotics and having his abscess drained. She would like to continue his course of antibiotics, then take him home. Louise stated she would like the patient to continue tube feeding via his peg tube upon discharge. It was explained that hospice would continue tube feeding until he no longer tolerates it. At that point they would stop it. Hospice philosophies and support services explained to Louise. She agreed to an informational meeting. 10/13 Louise states she stayed overnight and the patient had a rough night. He was very restless, agitated, and pulling out his IV's. She admits he get this way when he is at home at night, but never this bad. She stated they gave him Morphine and Ativan and it did not help. His is also concerned that he has not had a bowel movement in several days. She thinks that this may be causing him to be uncomfortable and adding to his agitation. She is currently waiting for other family members to come to the hospital so she can go home and shower and sleep for a while. She stated she asked staff if there were any patient safety sitters available and was told there are not. LEASING SPECIALIST offered to sit with patient until family can come relieve her. She agreed to call LEASING SPECIALIST if she needs relief. Tube feeding still on hold at this point. Patient able to eat a good portion of his breakfast tray. 10/16 Per the patient's , Louise, the patient was up all night long. He was extremely restless and agitated last night despite the Risperdal. He pulled out his peg tube this morning. At the time of examination, Dr. Rosenbaum was at the bedside and had just put a new peg tube in. He explained to the patient's that because the original peg was put in only a short time ago, it had not had time to heal and he had to put a new peg tube in to prevent the abdominal wall from . Abdominal xray showed it was in good position. Louise also stated that his appetite is up and down. She is able to get him to drink some ensure and eat the magic cups a couple times a day. Waiting for plan on antibiotic course to discharge patient home with hospice. Patient is very restless and continues to fidget and pull out his IV despite family being in the room. Spoke with Dr. Samuel who plans on titrating the Risperdal by adding a morning dose. Objective - Vital Signs Vital signs: Vital Signs Temp 99.3 F 10/17/21 05:00 Pulse 121 H 10/17/21 05:00 Resp 18 10/17/21 05:00 BP 174/95 10/17/21 05:00 Pulse Ox 90 L 10/17/21 05:00 Intake & Output 10/16/21 10/17/21 10/17/21 18:59 06:59 18:59 Output Total 900 1000 Balance -900 -1000 Weight 110.5 kg 108 kg Output: Urine 900 1000 Other: Voiding Method External Catheter External Catheter External Catheter # Bowel Movements 1 1 - Exam General: Calm, sleeping on and off, no acute distress HEENT: Head is atraumatic, normocephalic Neck is supple. Sclerae are clear. Pupils equal, round and reactive to light bilaterally. CV: Heart regular in rate and rhythm positive S1 and S2. No S3. No S4. No clicks, rubs or murmurs. No JVD. +1 Peripheral pulses Lungs: Diminished bases bilaterally. Respirations even and unlabored, No intercostal retractions. Currently on RA Abdomen/GI: Soft, protuberant. Normoactive bowel sounds present. Mild abdominal tenderness. LBM 5/10 : external catheter in place Musculoskeletal/ Extremities: No tenderness on muscular exam. No ecchymosis. Vascular: Radial pulses equal. +2, No peripheral edema Skin: No rash. redness noted to abdomen - improving Neurologic: Answers simple questions, confusion waxes and wanes Psychiatric: Flat affect - Labs CBC & Chem 7: 10/17/21 05:18 10/17/21 05:18 Labs: Abnormal Lab Results - Last 24 Hours (Table) 10/16/21 10/17/21 10/17/21 Range/Units 11:02 05:18 05:18 WBC 13.6 H (3.8-10.6) k/uL RBC 3.66 L (4.30-5.90) m/uL Hgb 9.6 L (13.0-17.5) gm/dL Hct 31.3 L (39.0-53.0) % MCHC 30.9 L (31.0-37.0) g/dL RDW 22.0 H (11.5-15.5) % Neutrophils # 11.8 H (1.3-7.7) k/uL Sodium 136 L (137-145) mmol/L Potassium 3.1 L (3.5-5.1) mmol/L BUN 2 L (9-20) mg/dL Creatinine 0.43 L 0.45 L (0.66-1.25) mg/dL Calcium 7.9 L (8.4-10.2) mg/dL Microbiology - Last 24 Hours (Table) 10/11/21 16:50 Blood Culture - Preliminary Blood No Growth after 120 hours Assessment and Plan Assessment: Symptoms * Pain - 0/10, Continue Morphine and Tylenol prn * Fatigue - + weakness and fatigue * SOB - No, Continue Albuterol neb, Pulmicort, Symbicort, and Morphine prn * Insomnia - lately he has been increasingly more confused, agitated, and re stless at night. Recommend starting Haldol or Seroquel * N/V - none currently, continue Zofran prn * Anxiety - denies, continue Zoloft * Depression - denies, continue Zoloft * Confusion - Mentation has waxed and wanes * Agitation - increasing at night - Recommend Haldol or Seroquel * Hallucinations - none * Appetite/weight loss/nutrition - has a good appetite, tells his he is hungry continue MVI and niacin, start TF via peg when cleared by surgery * Dysphagia - yes d/t esophageal cancer and chemo/radiation, Continue Dysphagia II ground diet, ensure, and magic cups * Constipation - Yes, Continue Senokot -S daily, Miralax and Dulcolax suppository prn. Dulcolax supp given 10/16 + BM * Incontinence - No, currently has an external catheter in place * Itch - none Plan: Summary/Goals - Per the patient's , Louise, the patient was very restless and agitated last evening. He had been awake for over 24 hours. She stated he was given a one time dose of Haldol. Then the patient calmed down and able to sleep a solid 5 hours. She is able to get him to drink some ensure and eat the magic cups a couple times a day. Waiting for plan on antibiotic course to discharge patient home with hospice. Plan/Recommendations - Consider adding Haldol prn or Seroquel for agitation. Discharge home with hospice services. Advanced Directives - Yes, Louise DPOA Code Status - DNR Anahy Veliz [facility]- Palliative Care [facility] [id number] Email: [email or web address] Time with Patient: Greater than 30
--- NOTE | 2021-10-17 11:41 | P.PN ---
Subjective Progress Note Date: 10/17/21 Principal diagnosis: Fever abdominal wall cellulitis Patient is a 66-year-old male with a past medical history significant for metastatic esophageal cancer with a recent PEG tube placement presenting to the hospital with a fever abdominal wall cellulitis. On today's evaluation that is 10/17/2021, the patient remains to be afebrile, the patient is breathing comfortably on room air, the patient denies chest pain shortness of breath or cough the patient abdominal discomfort and redness has decreased in intensity and no further drainage, Objective - Vital Signs Vital signs: Vital Signs Temp 99.3 F 10/17/21 05:00 Pulse 121 H 10/17/21 05:00 Resp 18 10/17/21 05:00 BP 174/95 10/17/21 05:00 Pulse Ox 90 L 10/17/21 05:00 Intake & Output 10/16/21 10/17/21 10/17/21 18:59 06:59 18:59 Output Total 900 1000 Balance -900 -1000 Weight 110.5 kg 108 kg Output: Urine 900 1000 Other: Voiding Method External Catheter External Catheter External Catheter # Bowel Movements 1 1 - Exam GENERAL DESCRIPTION: An elderly male lying in bed in no distress RESPIRATORY SYSTEM: Unlabored breathing , decreased breath sounds at bases HEART: S1 S2 regular rate and rhythm , ABDOMEN: Soft , abdominal wall swelling redness has slightly decreased EXTREMITIES: No edema feet - Labs CBC & Chem 7: 10/17/21 05:18 10/17/21 05:18 Labs: Abnormal Lab Results - Last 24 Hours (Table) 10/16/21 10/17/21 10/17/21 Range/Units 11:02 05:18 05:18 WBC 13.6 H (3.8-10.6) k/uL RBC 3.66 L (4.30-5.90) m/uL Hgb 9.6 L (13.0-17.5) gm/dL Hct 31.3 L (39.0-53.0) % MCHC 30.9 L (31.0-37.0) g/dL RDW 22.0 H (11.5-15.5) % Neutrophils # 11.8 H (1.3-7.7) k/uL Sodium 136 L (137-145) mmol/L Potassium 3.1 L (3.5-5.1) mmol/L BUN 2 L (9-20) mg/dL Creatinine 0.43 L 0.45 L (0.66-1.25) mg/dL Calcium 7.9 L (8.4-10.2) mg/dL Microbiology - Last 24 Hours (Table) 10/11/21 16:50 Blood Culture - Preliminary Blood No Growth after 120 hours Assessment and Plan (1) Cellulitis Current Visit: Yes Status: Acute Priority: High Code(s): L03.90 - CELLULITIS, UNSPECIFIED SNOMED Code(s): 401531296 Plan: 1patient with a fever and this patient presented to hospital with mental status changes patient did have a history of metastatic esophageal cancer with recent PEG tube placement and did have evidence of abdominal wall cellulitis around his PEG tube site will need to cover for gram-positive skin jaylan to be the likely pathogen however underlying gram-negative infection not entirely excluded. 2patient with multiple antibiotic allergies that would limit the number of an tibiotics safe to use. 3 CT abdominal pelvis did not show any abdominal wall abscess 4 patient has shown some clinical improvement with resolution of the fever patient local culture showing predominantly gram-positive that his MSSA and strep, the patient will continue with the vancomycin because of his penicillin cephalosporin ALLERGY, will recommend a short course of oral Levaquin and doxycycline on discharge, discussed with the family the bedside Time with Patient: Less than 30
[2021-10-17] MEDS ORDERED: POTASSIUM CHLORIDE ER 20 MEQ TAB.ER PO STA (12:16)
[2021-10-17] MEDS: HALOPERIDOL LACTATE 5 MG/ML 1 ML VIAL IM PRN ×2 (17:16→23:41)
--- NOTE | 2021-10-17 17:38 | P.PN ---
Progress Note - Text Progress Note Date: 10/17/21 Chief Complaint: Altered mental status This is a 66-year-old patient who follows with Dr. Contreras. Chronic stable medical conditions include asthma, GERD, hypertension, hyperlipidemia, hypothyroid. History is obtained by the at the bedside. Patient was diagnosed with metastatic esophageal cancer in July 2021. Being followed by Dr. Huff oncologist. Found to have brain metastasis. She has received 10 brain radiation treatments and advanced to chemotherapy is done. Last one being 2 weeks ago. About 5 days ago patient had a PEG tube placed by Dr. lara. The next day patient noticed to have a redness around the PEG tube site and started looking worse. It was read [place]. Patient does able to take some liquids by mouth. Patient normally has a bowel movement every day but S had no bowel movement for last 3 days. Have a fever yesterday. Patient been using a walker for last 2 weeks. Has been becoming confused. Patient had a MRI about 10 years ago. Showed some improvement. Patient was brought in because of increasing confusion waxing and waning mental status. Decreased oral intake. No pain reported. Patient's Louise is the DP OA. Admitted with sepsis, source felt to be PEG tube site possible abscess cellulitis. Acute delirium. October 11: Clindamycin discontinued. Started on IV aztreonam and vancomycin per ID. Patient draining more from the PEG tube site. Computed tomography scan of the abdomen ordered. Discussed with the and daughter the bedside. Patient able to answer simple questions today. Tired. Spiking fevers October 12: Significant amount of pus was squeezed out by Dr. lara at the bedside yesterday. Dressing in place. Local pus discharge present. Patient on clear liquid. at the bedside. No fever today. Diet being advanced by surgery. October 6: at the bedside. Very delirious last night and this morning. Had to be given Ativan. Sleepy this morning. Son is present. Did eat some food. White count still high. IV antibiotics. Tired October 7: Patient was delirious last night this morning. Received Ativan. Did eat some more. Breakfast. at the bedside. Discussed at length. Getting IV vancomycin. IV aztreonam. We will order Risperdal at night. Scheduled. Plan is for patient to go home with hospice. Questions answered. October 15: Patient did well last night with Risperdal. According to the had the best sleep for a while. Some agitation late in the morning. We'll start the patient on a small dose of Risperdal at the daytime. Tolerating some diet. On IV vancomycin. No fever. Patient able to answer simple questions. October 16: Patient has rather disrupted night. Most sedated this morning. He did get agitated. We will use Haldol when necessary. We'll continue his evening dose of Risperdal and aunt 0.5 mg tomorrow morning. Sleep hygiene to be maintained. Discussed with the patient's and daughter the bedside. Questions answered. Discussed with the nurse. Patient had pulled out his PEG tube last night. It placed. X-ray from this morning shows PEG tube in the stomach. October 17: Last 24 hours. Did have some episode of agitation. Will keep Haldol when necessary. Will increase the Risperdal to 2 mg at night and the morning dose to 1 mg. Care was discussed at length with the patient's and daughter will also discuss hospice at length. Of the family's of [facility] from [facility] will be helping the patient at home. Diet was discussed. Plan is this point to get the patient home with hospice tomorrow. Hopefully by then current medication will control his agitation better. Active Medications Acetaminophen (Acetaminophen Tab 500 Mg Tab) 500 mg PO Q6HR PRN PRN Reason: Fever and/ or Pain Last Admin: 10/11/21 11:15 Dose: 500 mg Documented by: Albuterol Sulfate (Albuterol Nebulized 2.5 Mg/3 Ml) 2.5 mg INHALATION RT-Q6H PRN PRN Reason: Shortness Of Breath Last Admin: 10/15/21 19:39 Dose: 2.5 mg Documented by: Atenolol (Atenolol 25 Mg Tab) 25 mg PO BID [facility] Last Admin: 10/17/21 08:20 Dose: 25 mg Documented by: Bisacodyl (Bisacodyl 10 Mg Supp) 10 mg RECTAL DAILY PRN PRN Reason: Constipation Budesonide (Budesonide 0.25 Mg/2 Ml Nebu) 0.25 mg INHALATION RT-BID PRN PRN Reason: Shortness Of Breath Budesonide/Formoterol Fumarate (Symbicort 80-4.5 Mcg Inhaler) 2 puff INHALATION RT-BID [facility] Last Admin: 10/17/21 08:02 Dose: 2 puff Documented by: Haloperidol Lactate (Haloperidol Lactate 5 Mg/Ml 1 Ml Vial) 5 mg IM Q6HR PRN PRN Reason: Agitation or Acute Psychosis Last Admin: 10/17/21 17:16 Dose: 5 mg Documented by: Vancomycin HCl 1,750 mg/ (Sodium Chloride) 500 mls @ 167 mls/hr IVPB Q12H [facility] Last Admin: 10/17/21 12:58 Dose: 167 mls/hr Documented by: Levothyroxine Sodium (Levothyroxine 100 Mcg Tab) 100 mcg PO DAILY@0630 [facility] Last Admin: 10/17/21 05:46 Dose: 100 mcg Documented by: Lorazepam (Lorazepam 2 Mg/Ml Inj) 1 mg IV Q6HR PRN PRN Reason: Agitation Last Admin: 10/16/21 20:43 Dose: 1 mg Documented by: Miscellaneous Information (Vancomycin Trough Due 1 Each Misc) 0 each MISCELLANE DIRECTED ONE Stop: 10/18/21 11:01 Morphine Sulfate (Morphine Sulfate 4 Mg/Ml Syringe) 4 mg IV Q4HR PRN PRN Reason: Severe Pain Last Admin: 10/17/21 05:44 Dose: 4 mg Documented by: Multivitamins (Multivitamins, Thera 1 Each Tab) 1 each PO DAILY [facility] Last Admin: 10/17/21 08:20 Dose: 1 each Documented by: Naloxone HCl (Naloxone 0.4 Mg/Ml 1 Ml Vial) 0.2 mg IV Q2M PRN PRN Reason: Opioid Reversal Niacin (Niacin Tr 500 Mg Caplet) 1,[address] [facility] Last Admin: 10/16/21 20:32 Dose: Not Given Documented by: Ondansetron HCl (Ondansetron 4 Mg/2 Ml Vial) 4 mg IVP Q4HR PRN PRN Reason: Nausea And Vomiting Last Admin: 10/14/21 20:50 Dose: 4 mg Documented by: Pantoprazole Sodium (Pantoprazole 40 Mg/10 Ml Vial) 40 mg IVP BID [facility] Last Admin: 10/17/21 08:19 Dose: 40 mg Documented by: Polyethylene Glycol (Polyethylene Glycol 3350 17 Gm Powd.Pack) 17 gm PO DAILY PRN PRN Reason: Constipation Risperidone (Risperidone 2 Mg Tab) 2 mg PO HS [facility] Risperidone (Risperidone 1 Mg Tab) 1 mg PO DAILY [facility] Senna/Docusate Sodium (Sennosides-Docusate Sodium 1 Each Tab) 2 each PO DAILY [facility] Last Admin: 10/17/21 08:20 Dose: 2 each Documented by: Sertraline HCl (Sertraline 100 Mg Tab) 150 mg PO DAILY [facility] Last Admin: 10/17/21 08:19 Dose: 150 mg Documented by: Past medical history to include: Asthma, GERD, hyperlipidemia, essential hypertension, hypothyroid, esophageal cancer with brain metastases has had 10 and radiation treatment in 2 doses of chemotherapy, dysphagia, PEG tube, esophageal varices, vitamin D deficiency, benign pituitary tumor with surgery, COVID in April 2021. Social history: . Does have a walker Wheelchair. Heavy drinker until 1997. No smoking. Family history: Father had bladder cancer. Physical examination: VITAL SIGNS: 98.8, 120, 18, 170/95, 90% room air GENERAL: Reclining in bed, tired EYES: Pupils equal. Conjunctiva normal. HEENT: External appearance of nose and ears normal, oral cavity dry. NECK: JVD not raised; masses not palpable. HEART: First and second heart sounds are normal; no edema. LUNGS: Respiratory rate normal; decreased breath sounds. ABDOMEN: Soft, dressing over the PEG tube site, Localized redness, liver spleen not palpable, no masses palpable. PSYCH: Difficult to assess MUSCULOSKELETAL:No Clubbing/cyanosis;muscles-grossly intact INVESTIGATIONS, reviewed in the clinical context: October 17: White count 13.6 hemoglobin 9.6 potassium 3.1 creatinine 0.45 October 14: White count 18.4 hemoglobin 9.5 potassium 3.5 crit 0.59 Abdominal wound: Staff for years, beta hemolytic strep group C, alphahemolytic streptococcus October 12: White count 30 hemoglobin 9.1 sodium 1:30 potassium 3.7 creatinine 0.58 Computed tomography scan chest abdomen pelvis: Area of inflammation swelling around PEG tube site. Localized abscess possible. October 11: White count 34 hemoglobin 9.4 potassium 3.5 creatinine 0.57 White count 39.7 hemoglobin 10.3 platelets 204 sodium 133 potassium 4.2 creatinine 0.7 AST 41 ALT 56 alkaline phosphatase 224 albumin 3.3 UA positive for protein 1+ Computed tomography scan of the brain: Fullness of the pituitary.. X-ray abdomen 1 view: PEG tube. Nonspecific nonobstructive bowel gas pattern. Chest x-ray film personally reviewed by me-no obvious infiltrate Assessment and plan: -Localized abscess cellulitis at the PEG tube site.: IV aztreonam, IV vancomycin. Pus was drained by squeezing around the PEG tube site by surgery. Cultures growing multiple organisms -Sepsis from above: IV fluids. IV aztreonam vancomycin -Metastatic esophageal cancer being followed by Dr. Huff diagnosed in July 2021. Patient has received 10 radiation treatment of the brain and has had 2 cycles of chemotherapy loss and being about 10 days ago. -Mild protein calorie malnutrition from decreased oral intake -Malfunctioning PEG tube. Since started using the PEG tube he's been throwing up the gastric contents. PEG tube was pulled up with the patient. Replaced on October 16. -Moderate persistent asthma DuoNeb 3 times a day -Hypothyroid Synthroid 100 g a day -GERD Prilosec 20 mg daily -Depression Zoloft 150 mg a day -Essential hypertension Tenormin 25 mg twice a day -Hyperlipidemia Currently hold off patient's Lopid and Mevacor given elevated liver enzymes. -Mild hepatitis likely from chemotherapy. Follow LFTs -Acute metabolic encephalopathy with delirium from underlying sepsis: Not improving Increase Risperdal 2 mg daily at bedtime. Increase Risperdal 1 mg the morning. Haldol when necessary -DO NOT RESUSCITATE -Louise, /DP OA Discussed length with the patient's and daughter the bedside. Other family members present. At present I increased dose of Risperdal. As above. Haldol when necessary. Plan is to be discharged tomorrow with hospice. To try spent today about 40 minutes with over 25 minutes of discussion.
[2021-10-17] MEDS ORDERED: risperiDONE 2 MG TAB PO SCH (21:00)
[2021-10-17] MEDS: LORazepam 2 MG/ML INJ IV PRN (21:19)
[2021-10-17] MEDS: NIACIN TR 500 MG CAPLET PO SCH (21:46)
[2021-10-18] MEDS: LEVOTHYROXINE 100 MCG TAB PO SCH (06:29)
[2021-10-18] MEDS ORDERED: risperiDONE 1 MG TAB PO SCH (09:00)
[2021-10-18] MEDS: SYMBICORT 80-4.5 MCG INHALER INHALATION SCH (09:31)
[2021-10-18] MEDS: atenoloL 25 MG TAB PO SCH (10:24)
[2021-10-18] MEDS: PANTOPRAZOLE 40 MG/10 ML VIAL IVP SCH (10:24)
[2021-10-18] MEDS: SENNOSIDES-DOCUSATE SODIUM 1 EACH TAB PO SCH (10:24)
[2021-10-18] MEDS: MULTIVITAMINS, THERA 1 EACH TAB PO SCH (10:24)
[2021-10-18] MEDS: SERTRALINE 100 MG TAB PO SCH (10:25)
[2021-10-18] MEDS ORDERED: VANCOMYCIN TROUGH DUE 1 EACH MISC MISCELLANE ONE (11:00)
--- NOTE | 2021-10-18 12:07 | P.PN ---
Subjective Progress Note Date: 10/18/21 Principal diagnosis: AMS,cellulitis This is a 66-year-old patient with a past medical history of asthma, GERD, hypertension, hyperlipidemia, hypothyroid, and receiving palliative treatment for metastatic esophageal adenocarcinoma. Patient presented to the on 10/09/21 with concerns for dehydration and altered mental status. Patient had a PEG tuce placed 1 week ago. The next day patient noticed to have a redness around the PEG tube site and started looking worse. It was read [place]. The patient has not been eating and drinking. Patient was advised to come the emergency d epartment by Dr. Huff's office. Patient does have metastatic esophageal cancer. Patient does have associated brain lesions. Patient has undergone radiation to the brain as well as a couple doses of chemotherapy. Confusion has been waxing and waning. 10/12 Met with patient's , Louise, and her son. Education provided on the patient's condition, his disease process, and prognosis. Louise states that she was told that he only has approximately 3 weeks to live. She said his cancer treatment were palliative. They have had several discussions in the past about end of life wishes. The patient wishes to comfortably and peacefully in his own home. She states his mental status has improved since starting on antibiotics and having his abscess drained. She would like to continue his course of antibiotics, then take him home. Louise stated she would like the patient to continue tube feeding via his peg tube upon discharge. It was explained that hospice would continue tube feeding until he no longer tolerates it. At that point they would stop it. Hospice philosophies and support services explained to Louise. She agreed to an informational meeting. 10/13 Louise states she stayed overnight and the patient had a rough night. He was very restless, agitated, and pulling out his IV's. She admits he get this way when he is at home at night, but never this bad. She stated they gave him Morphine and Ativan and it did not help. His is also concerned that he has not had a bowel movement in several days. She thinks that this may be causing him to be uncomfortable and adding to his agitation. She is currently waiting for other family members to come to the hospital so she can go home and shower and sleep for a while. She stated she asked staff if there were any patient safety sitters available and was told there are not. OBSERVATION NURSE offered to sit with patient until family can come relieve her. She agreed to call OBSERVATION NURSE if she needs relief. Tube feeding still on hold at this point. Patient able to eat a good portion of his breakfast tray. 10/16 Per the patient's , Louise, the patient was up all night long. He was extremely restless and agitated last night despite the Risperdal. He pulled out his peg tube this morning. At the time of examination, Dr. Rosenbaum was at the bedside and had just put a new peg tube in. He explained to the patient's that because the original peg was put in only a short time ago, it had not had time to heal and he had to put a new peg tube in to prevent the abdominal wall from . Abdominal xray showed it was in good position. Louise also stated that his appetite is up and down. She is able to get him to drink some ensure and eat the magic cups a couple times a day. Waiting for plan on antibiotic course to discharge patient home with hospice. Patient is very restless and continues to fidget and pull out his IV despite family being in the room. Spoke with Dr. Samuel who plans on titrating the Risperdal by adding a morning dose. 10/17 Per the patient's , Louise, the patient was very restless and agitated last evening. He had been awake for over 24 hours. She stated he was given a one time dose of Haldol. Then the patient calmed down and able to sleep a solid 5 hours. She is able to get him to drink some ensure and eat the magic cups a couple times a day. Waiting for plan on antibiotic course to discharge patient home with hospice. Objective - Vital Signs Vital signs: Vital Signs Temp 99.3 F 10/18/21 05:00 Pulse 71 10/18/21 05:00 Resp 20 10/18/21 05:00 BP 176/70 10/18/21 05:00 Pulse Ox 95 10/18/21 09:32 Intake & Output 10/17/21 10/18/21 10/18/21 18:59 06:59 18:59 Intake Total 0 Output Total 700 1100 Balance -700 -1100 Weight 108 kg Intake: Oral 0 Output: Urine 700 1100 Other: Voiding Method External Catheter External Catheter - Exam General: Calm, sleeping on and off, no acute distress HEENT: Head is atraumatic, normocephalic Neck is supple. Sclerae are clear. Pupils equal, round and reactive to light bilaterally. CV: Heart regular in rate and rhythm positive S1 and S2. No S3. No S4. No clicks, rubs or murmurs. No JVD. Lungs: Diminished bases bilaterally. Respirations even and unlabored, No intercostal retractions. Currently on RA Abdomen/GI: Soft, protuberant. Normoactive bowel sounds present. Mild abdominal tenderness. LBM 10/18 : external catheter in place Musculoskeletal/ Extremities: No tenderness on muscular exam. Vascular: Radial pulses equal. +2, No peripheral edema Skin: No rash. redness noted to abdomen - improving Neurologic: Answers simple questions, confusion waxes and wanes Psychiatric: Flat affect - Labs CBC & Chem 7: 10/17/21 05:18 10/17/21 05:18 Labs: Microbiology - Last 24 Hours (Table) 10/11/21 16:50 Blood Culture - Final Blood No Growth after 144 hours Assessment and Plan Assessment: Symptoms * Pain - 0/10, Continue Morphine and Tylenol prn * Fatigue - + weakness and fatigue * SOB - No, Continue Albuterol neb, Pulmicort, Symbicort, and Morphine prn * Insomnia - lately he has been increasingly more confused, agitated, and restless at night. Continue Risperdal, Haldol prn, and Ativan prn * N/V - none currently, continue Zofran prn * Anxiety - denies, continue Zoloft * Depression - denies, continue Zoloft * Confusion - Mentation has waxed and wanes * Agitation -+ at night time, Continue Risperdal, Haldol prn, and Ativan prn * Hallucinations - none * Appetite/weight loss/nutrition - has a good appetite, tells his he is hungry continu,e MVI and niacin, encourage oral intake, start TF via peg when cleared by surgery * Dysphagia - yes d/t esophageal cancer and chemo/radiation, Continue Dysphagia II ground diet, ensure, and magic cups * Constipation - No, Continue Senokot -S daily, Miralax and Dulcolax suppository prn. LBM today * Incontinence - No, currently has an external catheter in place * Itch - none Plan: Plan - Louise stated that the patient started to get agitated last night, but was given Risperdal, Ativan, and Haldol, and calmed down. He was able to rest and sleep well last night. Plan to discharge home today with hospice. Advanced Directives - Yes, Louise DPOA Code Status - DNR Anahy Veliz [facility] Palliative Care [facility] [id number] Email: [email or web address] Time with Patient: Greater than 30
[2021-10-18 12:43] VITALS: BP 158/77; PULSE 76; RESP 16; TEMP 98.4
[2021-10-18] MEDS: VANCOMYCIN 1,750 MG in SODIUM CHLORIDE 0.9% 500 ML 500 ML IVPB SCH (13:16)
[2021-10-18] MEDS: HALOPERIDOL LACTATE 5 MG/ML 1 ML VIAL IM PRN (13:26)
[2021-10-18] MEDS ORDERED: VANCOMYCIN 1,500 MG in SODIUM CHLORIDE 0.9% 250 ML IVPB SCH (18:00)
--- NOTE | 2021-10-18 19:39 | P.DS ---
Providers Date of admission: 10/09/21 19:24 Expected date of discharge: 10/18/21 Attending physician: Eric Samuel Consults: 10/09/21 19:25 Consult Physician Routine Consulting Provider: Lenin Hernandez Consult Reason/Comments: Oncological care Do you want consulting provider notified?: Yes 10/10/21 11:56 Consult Physician Stat Consulting Provider: Vincent Rosenbaum Consult Reason/Comments: feeding tube malfunction Do you want consulting provider notified?: Yes 10/10/21 11:59 Consult Physician Stat Consulting Provider: Colten Randall Consult Reason/Comments: Brain Meds Do you want consulting provider notified?: Yes 10/11/21 13:10 Consult Physician Urgent Consulting Provider: Geo Mckeon Consult Reason/Comments: fever, concern for abd infection Do you want consulting provider notified?: Yes 10/12/21 14:40 Consult to Palliative Care Routine Consulting Provider: Anahy Veliz Consult Reason/Comments: facilitate hospice transition, answer questions Do you want consulting provider notified?: Already Contacted Primary care physician: [facility] Course: Chief Complaint: Altered mental status This is a 66-year-old patient who follows with Dr. Contreras. Chronic stable medical conditions include asthma, GERD, hypertension, hyperlipidemia, hypothyroid. History is obtained by the at the bedside. Patient was diagnosed with metastatic esophageal cancer in July 2021. Being followed by Dr. Huff oncologist. Found to have brain metastasis. She has received 10 brain radiation treatments and advanced to chemotherapy is done. Last one being 2 weeks ago. About 5 days ago patient had a PEG tube placed by Dr. rosenbaum. The next day patient noticed to have a redness around the PEG tube site and started looking worse. It was read Fertile. Patient does able to take some liquids by mouth. Patient normally has a bowel movement every day but S had no bowel movement for last 3 days. Have a fever yesterday. Patient been using a walker for last 2 weeks. Has been becoming confused. Patient had a MRI about 10 years ago. Showed some improvement. Patient was brought in because of increasing confusion waxing and waning mental status. Decreased oral intake. No pain reported. Patient's Louise is the DP OA. Admitted with sepsis, source felt to be PEG tube site possible abscess cellulitis. Acute delirium. May 4: Clindamycin discontinued. Started on IV aztreonam and vancomycin per ID. Patient draining more from the PEG tube site. Computed tomography scan of the abdomen ordered. Discussed with the and daughter the bedside. Patient able to answer simple questions today. Tired. Spiking fevers October 5: Significant amount of pus was squeezed out by Dr. rosenbaum at the bedside yesterday. Dressing in place. Local pus discharge present. Patient on clear liquid. at the bedside. No fever today. Diet being advanced by surgery. October 6: at the bedside. Very delirious last night and this morning. Had to be given Ativan. Sleepy this morning. Son is present. Did eat some food. White count still high. IV antibiotics. Tired October 7: Patient was delirious last night this morning. Received Ativan. Did eat some more. Breakfast. at the bedside. Discussed at length. Getting IV vancomycin. IV aztreonam. We will order Risperdal at night. Scheduled. Plan is for patient to go home with hospice. Questions answered. October 15: Patient did well last night with Risperdal. According to the had the best sleep for a while. Some agitation late in the morning. We'll start the patient on a small dose of Risperdal at the daytime. Tolerating some diet. On IV vancomycin. No fever. Patient able to answer simple questions. October 16: Patient has rather disrupted night. Most sedated this morning. He did get agitated. We will use Haldol when necessary. We'll continue his evening dose of Risperdal and aunt 0.5 mg tomorrow morning. Sleep hygiene to be ailyn ntained. Discussed with the patient's and daughter the bedside. Questions answered. Discussed with the nurse. Patient had pulled out his PEG tube last night. It placed. X-ray from this morning shows PEG tube in the stomach. October 17: Last 24 hours. Did have some episode of agitation. Will keep Haldol when necessary. Will increase the Risperdal to 2 mg at night and the morning dose to 1 mg. Care was discussed at length with the patient's and daughter will also discuss hospice at length. Of the family's of [facility] will be helping the patient at home. Diet was discussed. Plan is this point to get the patient home with hospice tomorrow. Hopefully by then current medication will control his agitation better. October 18: Spoke to the and the other daughter the bedside. We will discharge the patient with Risperdal 3 mg at night and 1 mg the morning. [facility] to continue after discharge. Questions were answered. Feeding was discussed. Hold up 2 feeding for now. Tired. Does follow commands. DC home with a short course of doxycycline. Discussion and discharge planning more than 35 minutes Past medical history to include: Asthma, GERD, hyperlipidemia, essential hypertension, hypothyroid, esophageal cancer with brain metastases has had 10 and radiation treatment in 2 doses of chemotherapy, dysphagia, PEG tube, esophageal varices, vitamin D deficiency, benign pituitary tumor with surgery, COVID in April 2021. Social history: . Does have a walker Wheelchair. Heavy drinker until 1997. No smoking. Family history: Father had bladder cancer. Physical examination: VITAL SIGNS: 98.4, 76, 16, 158/77, 94% room air GENERAL: Reclining in bed, tired EYES: Pupils equal. Conjunctiva normal. HEENT: External appearance of nose and ears normal, oral cavity dry. NECK: JVD not raised; masses not palpable. HEART: First and second heart sounds are normal; no edema. LUNGS: Respiratory rate normal; decreased breath sounds. ABDOMEN: Soft, dressing over the PEG tube site, Localized redness, liver spleen not palpable, no masses palpable. PSYCH: Difficult to assess MUSCULOSKELETAL:No Clubbing/cyanosis;muscles-grossly intact INVESTIGATIONS, reviewed in the clinical context: October 17: White count 13.6 hemoglobin 9.6 potassium 3.1 creatinine 0.45 October 14: White count 18.4 hemoglobin 9.5 potassium 3.5 crit 0.59 Abdominal wound: Staff for years, beta hemolytic strep group C, alphahemolytic streptococcus October 12: White count 30 hemoglobin 9.1 sodium 1:30 potassium 3.7 creatinine 0.58 Computed tomography scan chest abdomen pelvis: Area of inflammation swelling around PEG tube site. Localized abscess possible. October 11: White count 34 hemoglobin 9.4 potassium 3.5 creatinine 0.57 White count 39.7 hemoglobin 10.3 platelets 204 sodium 133 potassium 4.2 creatinine 0.7 AST 41 ALT 56 alkaline phosphatase 224 albumin 3.3 UA positive for protein 1+ Computed tomography scan of the brain: Fullness of the pituitary.. X-ray abdomen 1 view: PEG tube. Nonspecific nonobstructive bowel gas pattern. Chest x-ray film personally reviewed by me-no obvious infiltrate Assessment and plan: -Localized abscess cellulitis at the PEG tube site.: IV aztreonam, IV vancomycin. Pus was drained by squeezing around the PEG tube site by surgery. Cultures growing multiple organisms -Sepsis from above: IV fluids. IV aztreonam vancomycin -Metastatic esophageal cancer being followed by Dr. Huff diagnosed in July 2021. Patient has received 10 radiation treatment of the brain and has had 2 cycles of chemotherapy loss and being about 10 days ago. -Mild protein calorie malnutrition from decreased oral intake -Malfunctioning PEG tube. Since started using the PEG tube he's been throwing up the gastric contents. PEG tube was pulled up with the patient. Replaced on October 16. -Moderate persistent asthma DuoNeb 3 times a day -Hypothyroid Synthroid 100 g a day -GERD Prilosec 20 mg daily -Depression Zoloft 150 mg a day -Essential hypertension Tenormin 25 mg twice a day -Hyperlipidemia Currently hold off patient's Lopid and Mevacor given elevated liver enzymes. -Mild hepatitis likely from chemotherapy. Follow LFTs -Acute metabolic encephalopathy with delirium from underlying sepsis: Not improving Increase Risperdal 2 mg daily at bedtime. Increase Risperdal 1 mg the morning. Haldol when necessary -DO NOT RESUSCITATE -Louise, /DP OA Disposition: Home with hospice Plan - Discharge Summary Discharge Rx Participant: No New Discharge Prescriptions: New risperiDONE [RisperDAL] 1 mg PO DAILY #3 tab risperiDONE [RisperDAL] 3 mg PO HS #3 tablet Doxycycline [Vibramycin] 100 mg PO BID #14 capsule Continue Sertraline HCl [Zoloft] 150 mg PO DAILY Omeprazole [PriLOSEC] 20 mg PO DAILY atenoloL [Tenormin] 25 mg PO BID Levothyroxine Sodium 100 mcg PO DAILY Niacin [Niacin ER] 1,000 mg PO DAILY Ondansetron [Zofran] 4 mg PO Q8H PRN PRN Reason: Nausea Discontinued Multivitamins, Thera [Multivitamin (formulary)] 1 tab PO DAILY Fluticasone/Salmeterol [Advair 250-50 Diskus] 1 puff INHALATION RT-BID Budesonide [Pulmicort] 0.25 mg INHALATION RT-BID PRN PRN Reason: Shortness Of Breath gemfibroziL [Lopid] 600 mg PO BID Dupilumab [Dupixent Syringe] 1 dose SQ DIRECTED Cholecalciferol (Vitamin D3) [Vitamin D3 (125 MCG = 5,000 IU)] 125 mcg PO DAILY Ascorbic Acid [Vitamin C] 500 mg PO DAILY Prochlorperazine [Compazine] 10 mg PO TID PRN PRN Reason: Nausea Lovastatin [Mevacor] 80 mg PO DAILY Albuterol Sulfate [Ventolin HFA] 2 puff INHALATION RT-Q6H PRN PRN Reason: Shortness Of Breath Discharge Medication List Levothyroxine Sodium 100 mcg PO DAILY 12/08/18 [History] Niacin [Niacin ER] 1,000 mg PO DAILY 12/08/18 [History] Omeprazole [PriLOSEC] 20 mg PO DAILY 12/08/18 [History] Sertraline HCl [Zoloft] 150 mg PO DAILY 12/08/18 [History] atenoloL [Tenormin] 25 mg PO BID 12/08/18 [History] Ondansetron [Zofran] 4 mg PO Q8H PRN 09/26/21 [History] Doxycycline [Vibramycin] 100 mg PO BID #14 capsule 10/18/21 [Rx] risperiDONE [RisperDAL] 1 mg PO DAILY #3 tab 10/18/21 [Rx] risperiDONE [RisperDAL] 3 mg PO HS #3 tablet 10/18/21 [Rx] Follow up Appointment(s)/Referral(s): Adalid Contreras DO [Primary Care Provider] - 1-2 days (office will call patient with appt time and date) [facility], [NON-STAFF] - [facility] - 1 Week Patient Instructions/Handouts: Doxycycline (By mouth), Risperidone (By mouth), Hospice Care (GEN) Discharge Disposition: HOME WITH HOSPICE
--- NOTE | 2021-10-21 09:03 | P.PN ---
Progress Note - Text Progress Note Date: 10/16/21 Pateint pulled PEG tube this AM. It has been 10 days since placement. BERONICA G-tube was placed at bedside and flushed with tap water easily. Will order PEG study to confirm placement. Overall cellulitis and abdominal wall infection is improved and almost resolved.
== END 2021-10-18 14:00 | disposition hospice, home (50) | DRG 919 ==
LOC: EC 16:37 → 5NMEDONC 19:24
PROVIDERS: ADMIT Hospitalist; ATTEND Hospitalist
DX: T85.79XA Infection and inflammatory reaction due to other internal prosthetic devices, implants and grafts, initial encounter (principal); A41.9 Sepsis, unspecified organism; G93.41 Metabolic encephalopathy; K94.22 Gastrostomy infection; C15.9 Malignant neoplasm of esophagus, unspecified; C79.31 Secondary malignant neoplasm of brain; C79.89 Secondary malignant neoplasm of other specified sites; E44.1 Mild protein-calorie malnutrition; F05 Delirium due to known physiological condition; I85.00 Esophageal varices without bleeding; L03.311 Cellulitis of abdominal wall; K94.23 Gastrostomy malfunction; Z66 Do not resuscitate; Z51.5 Encounter for palliative care; E03.9 Hypothyroidism, unspecified; E55.9 Vitamin D deficiency, unspecified; E78.5 Hyperlipidemia, unspecified; F32.A Depression, unspecified; F41.9 Anxiety disorder, unspecified; I10 Essential (primary) hypertension; Z92.3 Personal history of irradiation; Z92.21 Personal history of antineoplastic chemotherapy; J45.40 Moderate persistent asthma, uncomplicated; K21.9 Gastro-esophageal reflux disease without esophagitis; K59.00 Constipation, unspecified; K75.9 Inflammatory liver disease, unspecified; R13.10 Dysphagia, unspecified; T45.1X5A Adverse effect of antineoplastic and immunosuppressive drugs, initial encounter; Z79.51 Long term (current) use of inhaled steroids; Z79.890 Hormone replacement therapy; Z79.899 Other long term (current) drug therapy; Z80.52 Family history of malignant neoplasm of bladder; Z86.16 Personal history of COVID-19; Z88.1 Allergy status to other antibiotic agents; Z88.2 Allergy status to sulfonamides; E86.0 Dehydration; Z68.33 Body mass index [BMI] 33.0-33.9, adult; R45.1 Restlessness and agitation
CPT/HCPCS: 36415; 70450; 71046; 71270; 74018; 74178; 80048; 80053; 80202; 81001; 82565; 83605; 83735; 85025; 85610; 85730; 87040; 87070; 87077; 87186; 87205; 94640; 94760; 96361; 96374; 96375; 99291